=== PATIENT | female | born 1975 | race Caucasian/White ===

== ENCOUNTER 2023-06-21 20:50 | Outpatient (REF) | payer BC, SELFPAY ==
[2023-06-27 17:07] LABS: Age Gdln ACOG Testing Note (.); HPV Aptima Negative (Negative); IGP, Aptima HPV, rfx 16/18,45 Note (.)
== END 2023-06-21 20:51 | disposition home or self-care (01) ==
LOC: LAB 20:50
PROVIDERS: PCP Internal Medicine; Visit Provider Physician Assistant
DX: Z01.419 Encounter for gynecological examination (general) (routine) without abnormal findings (principal)
CPT/HCPCS: 87624; G0145

== ENCOUNTER 2023-08-16 13:44 | Outpatient (OUT) | payer BC, SELFPAY ==
--- OUTSIDE RECORDS SUMMARY | 2023-08-16 13:51 | XMS_ITS | CCD ---
Author Name Unknown Address [address] [place] [address] Organization [facility] Care Team Providers Care Ladle Handler Name Role Phone NO FAMILY PHYSICIAN Primary Care Unavailable Laconis ([facility]), Lainey Solitario Admitting Unavai lable [facility] ([facility]), Lainey Solitario Attending Unavai lable NILL, DR ALFONSO Admitting Unavailable NILL, DR ALFONSO Attending Unavailable NILL, DR ALFONSO Consulting Unavailable LINDSAY, DR URIBE Primary Care Unavailable KAREN, FRANCOIS Consulting Unavailable GEMBUS, JAHAIRA Consulting Unavailable LINDSAY, DR URIBE Consulting Unavailable LINDSAY, DR URIBE Primary Care Unavailable LINDSAY, DR URIBE Admitting Unavailable LINDSAY, DR URIBE Attending Unavailable LINDSAY, DR URIBE Primary Care Unavailable HILL, DR ADAN Admitting Unavailable WEST, DR KENDALL Branch Consulting Unavailable HILL, DR AADN Attending Unavailable HILL, DR ADAN Consulting Unavailable NILL, DR ALFONSO Admitting Unavailable LINDSAY, DR URIBE Primary Care Unavailable NILL, DR ALFONSO Attending Unavailable NILL, DR ALFONSO Consulting Unavailable NILL, Naty Solitario Attending Unavailable NILL, Naty Solitario Attending Unavailable IRVIN, SARITHA Attending Unavailable HILL, LOCO Delong Referring Unavailable DIDION, LAURA Delong Attending Unavailable DIDION, LAURA Delong Referring Unavailable Allergies Allergy Classification Reported Allergen(s) Allergy Type Date of Onset Reaction(s) Facility (1 source) No Known Medication Allergies; Translations: [No Known Medication Allergies] Propensity to adverse reactions (disorder) [facility] Repository Problems Active Problems Problem Classification Problem Date Documented Date Episodic/Chronic Asthma (1 source) Unspecified asthma, uncomplicated; Translations: [UNSPECIFIED ASTHMA UNCOMPLICATED] Onset: 08-01-2022 Chronic Esophageal disorders (1 source) Gastro-esophageal reflux disease without esophagitis; Translations: [GERD WITHOUT ESOPHAGITIS] Onset: 08-01-2022 Chronic Immunizations and screening for infectious disease (1 source) Encounter for screening for human papillomavirus (HPV); Translations: [ENC SCREENING HUMAN PAPILLOMAVIRUS] Onset: 06-17-2022 Episodic Other screening for suspected conditions (not mental disorders or infectious disease) (12 sources) Encounter for screening for malignant neoplasm of colon; Translations: [Encounter for screening for malignant neoplasm of cervix] Onset: 11-12-2021 Episodic Residual codes; unclassified (1 source) Acquired absence of both cervix and uterus; Translations: [ACQUIRED ABSENCE BOTH CERVIX AND UTERUS] Onset: 08-01-2022 Episodic Screening and history of mental health and substance abuse codes (1 source) Personal history of nicotine dependence; Translations: [PERSONAL HISTORY OF NICOTINE DEPEND] Onset: 08-01-2022 Episodic Unclassified (1 source) R05 - Cough; Translations: [R05 - Cough] Onset: 12-03-2018 Unclassified (1 source) CONTACT W/AND (SUSP) EXPOS COVID-19; Translations: [CONTACT W/AND (SUSP) EXPOS COVID-19] Onset: 07-28-2022 Past or Other Problems Problem Classification Problem Date Documented Da te Episodic/Chronic Residual codes; unclassified (1 source) Family history of malignant neoplasm of breast; Translations: [FAMILY HX MALIG NEOPLASM OF BREAST] Onset: 11-16-2021 Episodic Residual codes; unclassified (1 source) Family history of malignant neoplasm of other organs or systems; Translations: [FAM HX MALIG NEOPLASM OTH ORGN/SYS] Onset: 11-16-2021 Episodic Results Test Name Value Interpretation Reference Range Facility XR CHEST 2 VIEWSon 3 XR CHEST 2 VIEWS CLINICAL HISTORY: xr COMPARISON: FINDINGS: The cardiomediastinal silhouette is unremarkable. The lungs are free of infiltrates effusions or consolidations. The bones and soft tissues are within normal limits. IMPRESSION: There are no acute cardiopulmonary changes. ELECTRONICALLY SIGNED BY: Marcus Brunner MD Normal Not Available Outside Colonoscopyon 2021 Outside Colonoscopy [id number] D:127 Normal [facility] Reminderson 07-28-2022 Reminders - From: Carlie Mack LPN To: N - Clinical; Sent: 07/28/2022 11:15:46 EST Show up: 06/27/2032 07:00:00 EST Subject: colonoscopy recall Due Date/Time: 07/27/2032 07:00:00 EST Reminder/Recall Patient is due for screening colonoscopy 07/27/2032. Normal [facility] Lab Reportson 07-25-2022 Lab Reports [id number] D:127 Normal [facility] Covid-19 PCR ([facility])on 07-14 SARS-CoV-2 (COVID-19) RNA NICHELLE+probe Ql (Unsp spec) Not detected Normal NOT DETECTED [facility] Comment on above: Result Comment: When diagnostic testing is negative, the possibility of a false negative should be considered in the context of a patient's recent exposures and the presence of clinical signs and symptoms consistent with SARS-CoV-2. This test is not yet approved or cleared by the [place] FDA. When there are no FDA-approved or cleared tests available, and other criteria are met, FDA can make tests available under an emergency access mechanism called an Emergency Use Authorization (EUA). The EUA for this test is supported by the Magazine Keeper of Health and Human Service's declaration that circumstances exist to justify the emergency use of in vitro diagnostics for the detection and/or diagnosis of the virus that causes COVID-19. This EUA will remain in effect for the duration of the COVID-19 declaration justifying emergency of IVDs, unless it is terminated or revoked by the FDA (after which the test may no longer be used). Performed By: #### C VDTB #### [facility] [address] [place] [address] Dr. Charisse Esposito Consent for Procedure/Surger yon 07-14-2022 Consent for Procedure/Surgery [id number] D:127 Normal [facility] Facesheeton 07-14-2022 Facesheet [id number] D:127 Normal [facility] Pre-Certification Formon Pre-Certification Form [id number] CD:127 Normal [facility] Physician Referralon 022 Physician Referral [id number] D:127 Normal [facility] PAP ACOG PANEL 2: 30 to 65on 06-23-2022 . . Normal [facility] Comment on above: Result Comment: Perf ormed at: WB Performed By: #### [id number] #### [facility] [address] [address] [address] Charisse Esposito Age Gdln ACOG Testing - [facility] Comment on above: Performed By: #### [id number] #### [facility] [address] [address] [address] Charisse Esposito DIAGNOSIS: Comment [facility] Comment on above: Result Comment: NEGA TIVE FOR INTRAEPITHELIAL LESION OR MALIGNANCY. Performed at: WB Performed By: #### [id number] #### [facility] [address] [address] [address] Charisse Esposito HPV Aptima Negative Normal Negative [facility] Comment on above: Result Comment: This nucleic acid amplification test detects fourteen high-risk HPV types (16,18,31,33,35,39,45,51,52,56,58,59,66,68) without differentiation. Performed at: =G Performed By: #### 4 [id number] #### [facility] [address] [address] [address] Charisse Esposito HPV Genotype Reflex Comment Normal [facility] Comment on above: Result Comment: Crit eria not met, HPV Genotype not performed. Performed at: WB Performed By: #### 4 [id number] #### [facility] [address] [address] [address] Charisse Esposito Methodology: Comment Normal [facility] Comment on above: Result Comment: This liquid based ThinPrep(R) pap test was screened with the use of an image guided system. Performed at: WB Performed By: #### 4 [id number] #### [facility] [address] [place] [address] Dr. Charisse Esposito Note: Comment Normal [facility] Comment on above: Result Comment: The Pap smear is a screening test designed to aid in the detection of premalignant and malignant conditions of the uterine cervix. It is not a diagnostic procedure and should not be used as the sole means of detecting cervical cancer. Both false-positive and false-negative reports do occur. . Performed at: WB Performed By: #### 4 [id number] #### [facility] [address] [address] [address] Charisse Esposito Performed by: Comment Normal [facility] Comment on above: Result Comment: Rosita Chaudhari, Lead Software Architect (ASCP) Performed at: WB Performed By: #### 4 [id number] #### [facility] [address] [place] [address] Dr. Charisse Esposito Specimen adequacy: Comment Normal [facility] Comment on above: Result Comment: Sati sfactory for evaluation. No endocervical component is identified. Performed at: WB Performed By: #### 4 [id number] #### [facility] [address] [place] [address] Dr. Charisse Esposito Physician Referralon 022 Physician Referral [id number] D:127 Normal [facility] MG MAMM SCREEN 3D JOE CADon 11-12-2021 MG MAMM SCREEN 3D JOE CAD Patient: HENRIETTA RIVERA Exam Date: 11/12/2021 : 1975 Gender:F Ordering : DR LOCO GREEN Admission #: [id number] Family : Order #: [id number] CLICK HERE TO VIEW EXAM RADIOLOGY REPORT PROCEDURE: MAMMOGRAM SCREENING 3D BILATERAL CAD COMPARISON: MG MAMM SCREEN JOE W CAD, 12/11/2018. MG MAMM SCREEN JOE W CAD, 10/08/2020. INDICATIONS: Screening mammography Calculator Name NCI Breast Cancer Risk Assessment Tool 5 Year Breast Cancer Risk 1.50% Lifetime Breast Cancer Risk 15.10% Personal Breast Cancer No Personal Ovarian Cancer No Treatments None Family Cancers Sister with breast cancer at age 50; Aunt-maternal with breast cancer at age 52; Grandmother-maternal with brain cancer at age 60. LOCATION: [facility] BREAST COMPOSITION: Heterogeneously dense,which may obscure small masses. FINDINGS: DIAGNOSTIC CATEGORY 1--NEGATIVE. NO CHANGE FROM COMPARISON ASSESSMENT. Scattered benign-appearing calcifications are present. Scattered benign-appearing lymph nodes are present. RIGHT BREAST: No significant suspicious finding. LEFT BREAST: No significant suspicious finding. RECOMMENDATIONS: ROUTINE MAMMOGRAM AND CLINICAL EVALUATION IN 12 MONTHS. PLEASE NOTE: A NORMAL MAMMOGRAM DOES NOT EXCLUDE THE POSSIBILITY OF BREAST CANCER. A CLINICALLY SUSPICIOUS PALPABLE LUMP SHOULD BE BIOPSIED. Dictated by: Kendall Charles MD on 11/12/2021 at 11:29 Approved by: Kendall Charles MD on 11/12/2021 at 11:59 Normal [facility] XR chest 2V*on 12-03-2018 XR chest 2V* [facility] [place] [address] [place] [address] XRay Report Signed Patient: Henrietta Yan MR#: [id number] : 1975 Acct:[id number] Age/Sex: 43 / F ADM Date: 12/03/18 Loc: ICXD Room: Type: [facility] Attending Dr: Lainey HUERTA) KEMAR Ordering Provider: Lainey Marquez ([facility]) Date of Service: 12/03/18 XR/XR chest 2V*: cough;Cough Copies to: Lainey Marquez ([facility]) XR chest 2V* 12/03/2018 11:36 AM SIGNS AND SYMPTOMS: cough;Cough PROTOCOL: Frontal and lateral radiographs of the chest COMPARISON: None FINDINGS: The trachea is midline. The heart and mediastinal structures are within normal limits. The lung parenchyma is clear. The bony thorax is intact. XR/XR chest 2V* IMPRESSION: No acute cardiopulmonary pathology. Impression dictated by: Theo Saini M.D.12/03/2018 11:54 AM Dictation Location: [place] [address] Transcribed By: LATRICIA 12/03/18 1154 Dictated By: Theo Saini II, MD 12/03/18 1154 Signed By: 12/03/18 1154 Normal [facility] Encounters Encounter Date Encounter Type Care Provider Facility Start: 08-10-2023 End: 08-10-2023 ambulatory SARITHA BRYAN Not Available Start: 07-17-2023 End: 07-18-2023 ambulatory LAURA HWANG Not Available Start: 07-28-2022 Encounter for preprocedural laboratory examination DR NATY ROBERT [facility] Start: 07-27-2022 End: 07-28-[address] NATY ROBERT Facility:[facility] Start: 07-23-2022 End: 07-24-[address] NATY ROBERT Facility:[facility] Start: 07-23-2022 End: 07-24-2022 Encounter for preprocedural laboratory examination DR NATY ROBERT Facility:[facility] Start: 07-12-2022 End: 07-13-2022 ambulatory Naty ROBERT Facility:[facility] Start: 06-15-2022 End: 06-15-[address] RONY ALTAMIRANO Facility:[facility] Start: 06-15-2022 ambulatory Naty ROBERT Facility:[facility] Start: 11-12-2021 End: 11-13-[address] RONY ALTAMIRANO Facility:[facility] Start: 12-03-2018 End: 12-03-2018 Patient encounter procedure NO FAMILY PHYSICIAN Facility:[facility] Payers Date Payer Category Payer Self-pay 1975 Unknown [id number] 2.16.84 [id number] 1975 Unknown [id number] .16.84 [id number] 1975 Unknown [id number] .16.84 [id number] 1975 Unknown [id number] 2.16.84 [id number] 1975 Unknown [id number] 2.16.8 [id number] 1975 Unknown [id number] 2.16.8 [id number] 1975 Unknown [id number] 2.16.840 .[id number] 1975 Unknown [id number] 2.16.840 .[id number] 1975 Unknown [id number] 2.16.840 .[id number] 1961 Unknown [id number] Unknown [id number] 2.16.84 [id number] Clinical Note 07-27-2022 Note Date & Type Note Facility 07-27-2022 Note OPERATIVE NOTE OPERATION DATE: 07/27/2022 PREOPERATIVE DIAGNOSIS: Colorectal screening. POSTOPERATIVE DIAGNOSIS: Normal colonoscopy to cecum. PROCEDURE: Colonoscopy to cecum. SURGEON: Naty Robert M.D. ANESTHESIA: Monitored anesthesia care. ESTIMATED BLOOD LOSS: Zero. INDICATIONS AND CONSENT: Patient is a 47-year-old female, presents for colorectal screening. Indications, risks, benefits, alternatives of proceeding with colonoscopy were explained extensively to the patient, including the risks of bleeding, colon perforation or anesthetic complications. All of her questions were answered. Informed consent was obtained. PROCEDURE: Patient brought to the operating room, placed in the left lateral decubitus position. Monitored anesthesia care was provided. Rectal exam was performed which showed no masses or blood. The scope was inserted into the anal canal. Under direct visualization was advanced. With the aid of abdominal compression, it was advanced to the cecum where cecal markings were clearly identified. There was noted to be a good prep. Upon withdrawal of the scope, mucosal surfaces were carefully examined. There were no mass lesions or polyps. No inflammatory changes or ulcerations. No significant diverticulosis. The scope was retroflexed in the anal canal. There was no significant hemorrhoidal disease. Scope was then withdrawn. Patient tolerated procedure well, was sent to recovery room in good condition. CC: Family physician [facility] Clinical Note 07-13-2022 Note Date & Type Note Facility 07-13-2022 Note Chief Complaint consultation for screening colonoscopy HPI Staff 47 year old female presents on consultation from Dr. Altamirano for screening colonoscopy. Denies abdominal or rectal pain. No rectal bleeding or change in bowel habits. Denies nausea or vomiting. No unexplained weight loss. Never had colonoscopy in the past. No known family history of colon cancer. History of Present Illness 47 yo female with h/o asthma, referred for colorectal screening; denies change in bms or blood in stools; no abdominal complaints; denies asa or NSAID use, no SBE prophylaxis; abdominal operations significant for tubal ligation, TONNY with bso; no previous colonoscopy; denies asa or NSAID use; no SBE prophylaxis; no fmhx of GI malignancy or IBD. no tobacco use. Review of Systems PHQ Score Initial Depression Screen Score: 0 ROS - Provider Constitutional: no fever, no sweats, no weight loss. Eyes: no glasses, no blurred vision, no visual loss. ENMT: no dentures, no hoarseness, no swallowing difficulties, no hearing loss, no ear infection(s), no nose bleeds. Cardiovascular: normal blood pressure, no chest pain, regular heartbeat, no heart murmur. Respiratory: no shortness of breath, no cough, no asthma, no wheezing. Gastrointestinal: no nausea, no vomiting, no diarrhea, no constipation, no blood in stool, no change in bowel habits, no abdominal pain, no hepatitis. Genitourinary: no kidney stones, no urine infection, no dysuria. Musculoskeletal: no pain, no weakness. Skin: no changing moles, no rash, no skin lumps. Neurologic: no seizures, no epilepsy, no headache. Psychiatric: no emotional or psychiatric problem. Heme/Lymph: no bleeding problems, no anemia, no blood clots, no transfusions. Allergy/Immunologic: no swollen lymph nodes/glands, no IV drug abuse. Other: Additional ROS info: Except as noted in the above Review of Systems and in the History of Present Illness, all other systems have been reviewed and are negative or noncontributory. Physical Exam Vitals & Measurements HR: 76(Peripheral) RR: 16 BP: 126/82 HT: 64 in HT: 162 cm WT: 72 kg WT: 158.4 lb BMI: 27.43 HEENT: normal conjunctiva, sclera clear, no scleral icterus, EOM intact, PERRLA, oral mucosa moist without lesions. Neck: trachea midline, no mass, symmetric, no thyromegaly or nodules, no adenopathy Respiratory: lungs CTA, respirations non labored. Cardiovascular: regular rate and rhythm, no murmur, no pedal edema or varicosities. Gastrointestinal: soft, non distended, no tenderness, no masses, no palpable hernias, diastasis recti no, no hepatosplenomegaly; normal bs Lymphatic: no cervical adenopathy, Musculoskeletal: normal gait, digits and nails without infection, nodes, cyanosis, clubbing. Skin: no rashes, no lesions, no ulcers, no subcutaneous nodules, induration. Psychiatric/Neuro: oriented to time, place, person, judgement normal, affect appropriate for age, insight intact, no focal deficits. Tests review of old records completed, Discussed surgical options, risks, and possible complications with patient. Assessment/Plan 1. Screening for malignant neoplasm of colon (Z12.11: Encounter for screening for malignant neoplasm of colon) plan colonoscopy under anesthesia, informed consent obtained. Follow-up No qualifying data available Problem List/Past Medical History Ongoing Asthma BMI 27.0-27.9,adult Chronic constipation Depression Fibrocystic breast changes GERD (gastroesophageal reflux disease) Mixed incontinence Psoriasis Screening for malignant neoplasm of colon Seasonal allergic rhinitis Historical No qualifying data Procedure/Surgical History Abdominal hysterectomy, Bilateral complete salpingectomy, Endometrial ablation, Excision of cervical lymph node, Tubal ligation. Medications Fish Oil fluticasone-salmeterol 250 mcg-50 mcg Inh Pwdr, 1 puff, Inhalation, BID Allergies No Known Allergies No Known Medication Allergies Social History Alcohol - Denies Alcohol Use, 07/12/2022 Substance Abuse - Denies Substance Abuse, 07/12/2022 Tobacco Former smoker, quit more than 30 days ago Tobacco Use:. Never Smokeless Tobacco Use:. Cigarettes, 0.25 per day. Started age 15.0 Years. Stopped age 18 Years., 07/12/2022 Family History Diabetes mellitus type 2: Mother and Father. Heart failure: Brother. Hypertension: Father. Primary malignant neoplasm of female breast: Sister. Stroke: Father. Immunizations Vaccine Date Status Comments influenza virus vaccine, inactivated - Not Given Patient Refuses [facility] Comment on above: Result Comment: Elec tronically Signed By: TARA GOVEA, Naty Garcia\Date and Time Signed: 07/13/22 13:08 EST Summary Purpose Family History No Family History Records FoundNo Family History Records FoundNo Family History Records FoundNo Family History Records Found Advance Directives No Advanced Directives Records FoundNo Advanced Directives Records FoundNo Advanced Directives Records FoundNo Advanced Directives Records Found Additional Source Comments INFORMATION SOURCE (unrecogn ized section and content) DATE CREATED AUTHOR 12/04/2018 [facility] DATE CREATED AUTHOR AUTHOR'S ORGANIZ ATION 08/05/2022 [facility] DATE CREATED AUTHOR AUTHOR'S ORGANIZ ATION 08/12/2022 [facility] DATE CREATED AUTHOR AUTHOR'S ORGANIZ ATION 08/12/2023 [facility] EPIC FOR RECORDS PERTAINING TO PATIENTS WHO ARE OR HAVE BEEN ENROLLED IN A CHEMICAL DEPENDENCY/SUBSTANCEABUSE PROGRAM, SOME INFORMATION MAY BE OMITTED. This clinical summary was aggregated from multiple sources. Caution should be exercised in using it in the provision of clinical care. This summary normalizes information from multiple sources, and as a consequence, information in this document may materially change the coding, format and clinical context of patient data. In addition, data may be omitted in some cases. CLINICAL DECISIONS SHOULD BE BASED ON THE PRIMARY CLINICAL RECORDS. [facility]. provides no warranty or guarantee of the accuracy or completeness of information in this document.
--- NOTE | 2023-08-16 14:02 | US_ITS ---
Patient Name: PATRICK RIVERA MR#: [id number] : 1975 Exam Date: 08/16/2023 Ordering Doctor: DR Abbe Altamirano . RADIOLOGY REPORT PROCEDURE: US BREAST RT COMPLETE COMPARISON: None. INDICATIONS: Right Breast Pain N64.4 TECHNIQUE: Breast ultrasound was performed, with evaluation focusing only on specific areas of concern. FINDINGS: Right breast ultrasound demonstrates at the 3 o'clock position a 3 mm area of anechoic echogenicity consistent with a simple cyst. Dilated duct is observed. No additional focal abnormality is observed to correspond to patient's pain. Further evaluation should be based on clinical and physical exam. RECOMMENDATIONS: No focal ultrasound abnormality to correspond to the patient's pain PLEASE NOTE: A NORMAL ULTRASOUND EXAMINATION DOES NOT EXCLUDE THE POSSIBILITY OF BREAST CANCER. A CLINICALLY SUSPICIOUS PALPABLE LUMP SHOULD BE BIOPSIED. Dictated by: James Charles MD on 08/16/2023 at 14:55 Approved by: James Charles MD on 08/16/2023 at 14:57
== END 2023-08-16 13:45 | disposition home or self-care (01) ==
LOC: US 13:44
PROVIDERS: PCP Internal Medicine; Visit Provider Obstetrics & Gynecology
DX: N64.4 Mastodynia (principal)
CPT/HCPCS: 76641

== ENCOUNTER 2023-12-01 12:52 | Outpatient (OUT) | payer BC, SELFPAY ==
--- NOTE | 2023-12-01 12:57 | MM_ITS ---
Patient Name: PATRICK RIVERA MR#: [id number] : 1975 Exam Date: 12/01/2023 Ordering Doctor: DR Abbe Altamirano . RADIOLOGY REPORT PROCEDURE: MM TOMOSYNTHESIS SCREENING BI COMPARISON: MG MAMM SCREEN 3D JOE CAD, 12/29/2022. MG MAMM SCREEN 3D JOE CAD, 11/12/2021. MG MAMM SCREEN JOE W CAD, 10/08/2020. MG MAMM SCREEN JOE W CAD, 12/11/2018. INDICATIONS: Screening Calculator Name NCI Breast Cancer Risk Assessment Tool 5 Year Breast Cancer Risk 1.60% Lifetime Breast Cancer Risk 14.70% Personal Breast Cancer No Personal Ovarian Cancer No Treatments None Family Cancers Sister with breast cancer at age 50; Aunt-maternal with breast cancer at age 52; Grandmother-maternal with brain cancer at age 60. LOCATION: [facility] BREAST COMPOSITION: The breasts are heterogeneously dense,which may obscure small masses. FINDINGS: DIAGNOSTIC CATEGORY 1--NEGATIVE. RIGHT BREAST: No significant suspicious finding. No significant change has occurred. LEFT BREAST: No significant suspicious finding. No significant change has occurred. RECOMMENDATIONS: ROUTINE MAMMOGRAM AND CLINICAL EVALUATION IN 12 MONTHS. PLEASE NOTE: A NORMAL MAMMOGRAM DOES NOT EXCLUDE THE POSSIBILITY OF BREAST CANCER. A CLINICALLY SUSPICIOUS PALPABLE LUMP SHOULD BE BIOPSIED. Dictated by: Raad Munguia M.D. on 12/01/2023 at 15:25 Approved by: Raad Munguia M.D. on 12/01/2023 at 15:27
--- OUTSIDE RECORDS SUMMARY | 2023-12-01 13:00 | XMS_ITS | CCD ---
Author Organization [facility] Care Team Providers Care Contracts Manager Name Role Phone NO FAMILY PHYSICIAN Primary [...] DR KENDALL Branch Consulting Unavailable HILL, DR ADAN Attending Unavailable HILL, DR ADAN Consulting Unavailable NILL, DR ALFONSO Admitting Unavailable LINDSAY, DR URIBE Primary Care Unavailable NILL, DR ALFONSO Attending Unavailable NILL, DR ALFONSO Consulting Unavailable NILL, Naty Solitario Attending Unavailable NILL, Naty Solitario Attending Unavailable Unavailable Primary Care Provider Unavailabl e PROVIDER, UNKNOWN Attending Unavailable PROVIDER, UNKNOWN Admitting Unavailable SARITHA BRYAN Attending Unavailable LINDSAYRONY Kunz Attending Unavailable MEGAN PHILLIPS Attending Unavail able LOCO GREEN Referring Unavailable TEAGAN, AMARILYS Attending Unavailable PETER, LOCO Delong Referring Unavailable TEAGAN, AMARILYS Attending Unavailable LOCO GREEN Referring Unavailable ESPINOZA COLEMAN Attending Unavailable LOCO GREEN Referring Unavailable LOCO GREEN Referring Unavailable DIDIONLAURA Attending Unavailable DIDLAURA STOREY Referring Unavailable TEAGAN, AMARILYS Attending Unavailable PETER, LOCO Delong Referring Unavailable TEAGAN, AMARILYS Attending Unavailable LOCO GREEN Referring Unavailable DEPMICHAEL FOSTER Attending Unavailable HILL, LOCO Delong Referring Unavailable TEAGAN, AMARILYS Attending Unavailable HUBBARDSTONLOCO Referring Unavailable HILL, LOCO Delong Attending Unavailable HILL, LOCO Delong Referring Unavailable TEAGAN, AMARILYS Attending Unavailable HUBBARDSTON, LOCO Delong Referring Unavailable Allergies Allergy Classification Reported Allergen(s) Allergy Type Date of Onset Reaction(s) Facility (1 source) No Known Medication Allergies; Translations: [No Known Medication Allergies] Propensity to adverse reactions (disorder) [facility] Repository Problems Active Problems Problem Classification Problem [...] BOTH CERVIX AND UTERUS] Onset: 08-01-2022 Episodic Residual codes; unclassified (1 source) Did not attend; Translations: [No-show for appointment] 09-13-2023 Episodic Screening and history of mental health and substance abuse codes (1 source) Personal history of nicotine dependence; Translations: [PERSONAL HISTORY OF NICOTINE DEPEND] Onset: 08-01-2022 Episodic Unclassified (1 source) R05 - Cough; Translations: [R05 - Cough] Onset: 12-03-2018 Unclassified (1 source) CONTACT W/AND (SUSP) EXPOS COVID-19; Translations: [CONTACT W/AND (SUSP) EXPOS COVID-19] Onset: 07-28-2022 Unclassified (1 source) Patient's noncompliance with other medical treatment and regimen due to unspecified reason; Translations: [Patient's noncompliance with other medical treatment and regimen due to unspecified reason] Onset: 09-13-2023 Past or Other Problems Problem Classification Problem [...] Test Name Value Interpretation Reference Range Facility Progress Noteson 09-13-2023 Barrel Ribs Solderer Authentication Interface Message Text Pt left the waiting room at her scheduled appointment time. She had been inthe waiting room about 4 minutes. She called the office [place]. Slava Helms, BACK CLOSER-SKIP LOCATOR Normal [facility] XR CHEST 2 VIEWSon 3 XR CHEST 2 VIEWS CLINICAL HISTORY: xr COMPARISON: FINDINGS: The cardiomediastinal silhouette is unremarkable. The lungs are free of infiltrates effusions or consolidations. The bones and soft tissues are within normal limits. IMPRESSION: There are no acute cardiopulmonary changes. ELECTRONICALLY SIGNED BY: Marcus Brunner MD Normal Not Available Outside Colonoscopyon 2021 Outside Colonoscopy [id number] 0CD:127 Normal [facility] Reminderson 07-28-2022 Reminders - From: Carlie Mack LPN To: N - Clinical; Sent: 07/28/2022 11:15:46 EST Show up: 06/27/2032 07:00:00 EST Subject: colonoscopy recall Due Date/Time: 07/27/2032 07:00:00 EST Reminder/Recall Patient is due for screening colonoscopy 07/27/2032. Normal [facility] Lab Reportson 07-25-2022 Lab Reports [id number] 0CD:127 Normal [facility]14 SARS-CoV-2 (COVID-19) RNA NICHELLE+probe Ql (Unsp spec) Not detected Normal NOT DETECTED [facility] Comment on above: Result Comment: When diagnostic [...] for this test is supported by the [employer] of Health and Human Service's declaration that [...] used). Performed By: #### C VDTB #### [facility] [address] [place] [address] Dr. Charisse Esposito Consent for Procedure/Surger yon 07-14-2022 Consent for Procedure/Surgery [id number] 0CD:127 Normal [facility] Facesheeton 07-14-2022 Facesheet [id number] 0CD:127 Normal [facility] Pre-Certification Formon Pre-Certification Form [id number]. 00CD:127 Normal [facility] Physician Referralon 022 Physician Referral [id number] 0CD:127 Normal [facility] PAP ACOG PANEL 2: 30 to 65on 06-23-2022 . . Normal [facility] Comment on above: Result Comment: Perf ormed at: WB Performed By: #### [id number] #### [facility] [address] [place] [address] Dr. Charisse Esposito Age Gdln ACOG Testing 30-65 Normal [facility] Comment on above: Performed By: #### [id number] #### [facility] [address] [place] [address] Dr. Charisse Esposito DIAGNOSIS: Comment Normal [facility] Comment on above: Result Comment: NEGA TIVE FOR INTRAEPITHELIAL LESION OR MALIGNANCY. Performed at: WB Performed By: #### 4 [id number] #### [facility] [address] [place] [address] Dr. Charisse Esposito HPV Aptima Negative Normal Negative [facility] Comment on above: Result Comment: This nucleic acid amplification test detects fourteen high-risk HPV types (16,18,31,33,35,39,45,51,52,56,58,59,66,68) without differentiation. Performed at: =G Performed By: #### 4 [id number] #### [facility] [address] [place] [address] Dr. Charisse Esposito HPV Genotype Reflex Comment Normal [facility] Comment on above: Result Comment: Crit eria not met, HPV Genotype not performed. Performed at: WB Performed By: #### 4 [id number] #### [facility] [address] [place] [address] Dr. Charisse Esposito Methodology: Comment [facility] Comment on above: Result Comment: This liquid based ThinPrep(R) pap test was screened with the use of an image guided system. Performed at: WB Performed By: #### 4 [id number] #### [facility] [address] [place] [address] Dr. Charisse Esposito Note: Comment Normal [facility] Comment on above: Result Comment: The Pap smear is a screening test designed to aid in the detection of premalignant and malignant conditions of the uterine cervix. It is not a diagnostic procedure and should not be used as the sole means of detecting cervical cancer. Both false-positive and false-negative reports do occur. . Performed at: WB Performed By: #### 4 [id number] #### [facility] [address] [place] [address] Dr. Charisse Esposito Performed by: Comment Normal [facility] [place] Comment on above: Result Comment: Rosita Chaudhari, Picu Nurse (ASCP) Performed at: WB Performed By: #### 4 [id number] #### [facility] [address] [place], [place] [address] Dr. Charisse Esposito Specimen adequacy: Comment Normal [facility] Comment on above: Result Comment: Sati sfactory for evaluation. No endocervical component is identified. Performed at: WB Performed By: #### 4 [id number] #### [facility] [address] [place], [place] [address] Dr. Charisse Esposito Physician Referralon 022 Physician Referral [id number] 0CD:127 Normal [facility] MG MAMM SCREEN 3D JOE CADon 11-12-2021 MG MAMM SCREEN 3D JOE CAD Patient: HENRIETTA RIVERA Exam Date: 11/12/2021 : 1975 Gender:F Ordering : DR LOCO GREEN Admission #: [id number] Family : Order #: [id number] CLICK HERE TO VIEW EXAM RADIOLOGY REPORT [...] brain cancer at age 58. LOCATION: [facility] BREAST COMPOSITION: Heterogeneously dense,which may obscure small [...] Charles MD on 11/12/2021 at 11:59 Normal [facility] XR chest 2V*on 12-03-2018 XR chest 2V* [facility] [place] [address] [place] [address] XRay Report Signed Patient: Henrietta Yan MR#: [id number] : 1975 Acct:[id number] Age/Sex: 43 / F ADM Date: 12/03/18 Loc: ICXD Room: Type: [facility] Attending Dr: Lainey HUERTA) [facility] JUDGE-C Ordering Provider: Lainey Marquez ([facility]) Date of [...] Theo Saini M.D.12/03/2018 11:54 AM Dictation Location: [place] [address] Transcribed By: [facility] 12/03/18 1154 Dictated By: Theo Saini II, MD 12/03/18 1154 Signed By: 12/03/18 1154 [facility] Encounters Encounter Date Encounter Type Care Provider Facility Start: 11-02-2023 End: 11-02-2023 ambulatory AMARILYS TEAGAN Not Available Start: 10-31-2023 End: 11-01-2023 ambulatory LOCO GREEN Not Available Start: 10-31-2023 End: 10-31-2023 ambulatory AMARILYS TEAGAN Not Available Start: 10-24-2023 End: 10-24-2023 ambulatory MICHAEL PAZ Not Available Start: 10-19-2023 End: 10-19-2023 ambulatory AMARILYS TEAGAN Not Available Start: 10-17-2023 End: 10-17-2023 ambulatory AMARILYS TEAGAN Not Available Start: 10-12-2023 End: 10-12-2023 ambulatory ESPINOZA VIR[place] Not Available Start: 10-10-2023 End: 10-10-2023 ambulatory AMARILYS TEAGAN Not Available Start: 10-06-2023 End: 10-06-2023 ambulatory AMARILYS TEAGAN Not Available Start: 10-03-2023 End: 10-03-2023 ambulatory MEGAN Delong [facility] Not Available Start: 09-19-2023 End: 09-19-2023 ambulatory RONY ALTAMIRANO Not Available Start: 09-17-2023 Letter encounter [facility] Start: 09-13-2023 ambulatory UNKNOWN PROVIDER Facili ty:[facility] Start: 09-13-2023 End: 09-13-2023 Patient encounter procedure Slava Helms BACK CLOSER-SKIP LOCATOR Work Phone: [facility] Comment on above: No-show for appointm ent (Primary Dx) Start: 08-10-2023 End: 08-10-2023 ambulatory SARITHA BRYAN Not Available Start: 07-17-2023 End: 07-18-2023 ambulatory LAURA HWANG Not Available Start: 07-28-2022 Encounter for preprocedural laboratory examination DR NATY ROBERT [facility] Start: 07-27-2022 End: 07-28-[address] NATY ROBERT Facility:[facility] Start: 07-23-2022 End: 07-24-[address] NATY ROBERT Facility:[facility] Start: 07-23-2022 End: 07-24-2022 Encounter for preprocedural laboratory examination DR NATY ROBERT Facility:[facility] Start: 07-12-2022 End: 07-13-2022 ambulatory Naty ROBERT Facility:[facility] Start: 06-15-2022 End: 06-15-[address] RONY ALTAMIRANO Facility:[facility] Start: 06-15-2022 ambulatory Naty ROBERT Facility:[facility] Start: 11-12-2021 End: 11-13-[address] RONY ALTAMIRANO Facility:[facility] Start: 12-03-2018 End: 12-03-2018 Patient encounter procedure NO FAMILY PHYSICIAN Facility:[facility] Plan of Treatment Date Care Activity Detail Author Start: 10-21-2027 Cholesterol [Mass/vo lume] in Serum or Plasma Cholesterol [facility] Start: 12-30-2023 Screening for malign ant neoplasm of breast Mammography [facility] Start: 04-14-2023 COVID-19 Vaccine ( season) COVID-19 Vaccine ( season) [facility] Start: 04-14-2023 Influenza vaccination Influenza Vacc ine (#1) [facility] Start: 2023 Shingles (RZV) Vacci ne (1 of 2) Shingles (RZV) Vaccine (1 of 2) [facility] Start: 2018 Cholesterol [Mass/vo lume] in Serum or Plasma Cholesterol [facility] Start: 2018 Screening for malign ant [facility]oplasm [facility] Start: 1994 Screening for malign ant neoplasm of cervix Pap Smear [facility] Start: 1991 Hepatitis C screening Hepatitis C An tibody [facility] Start: 1991 Tetanus + diphtheria + acellular pertussis vaccine (product) Tdap Booster [facility] Start: 1988 HIV screening HIV Test [facility] Start: 1973 Hepatitis B vaccination Hepati tis B (HBV) Vaccine (1 of 3 - 3-dose series) [facility] Start: 1975 Screening for malign ant neoplasm of colon Colonoscopy [facility] Immunizations Immunization Date Immunization Notes Care Provider Fa abdirizak 05-21-2018 influenza, injectabl e, quadrivalent, contains preservative Slava Helms BACK CLOSER-SKIP LOCATOR Work Phone: [facility] 05-21-2018 influenza virus vacc ine, unspecified formulation Slava Helms BACK CLOSER-SKIP LOCATOR Work Phone: [facility] Payers Date Payer Category Payer Unknown [employer] - [employer] BLUE CROSS/HMO,PPO,POS [id number] 2023-Present [address] [place] [address] PPO [id number] 2018 Self-pay 1975 Unknown [id number] 2.16.840.1.574738.3.579.2.593 1975 Unknown [id number] 2.16.840.1.809167.3.579.2.593 1975 Unknown [id number] 2.16.840.1.542415.3.579.2.593 1975 Unknown [id number] 2.16.840.1.699572.3.579.2.593 1975 Unknown [id number] 2.16.840.1.608573.3.579.2.727 1975 Unknown [id number] 2.16.840.1.069730.3.579.2.727 1975 Unknown [id number] 2.16840.1.033847.3.579.2.732 1975 Unknown [id number] 2.16840.1.084098.3.579.2.125 1975 Unknown [id number] 2.16840.1.575862.3.579.2.125 1975 Unknown [id number] 2.16840.1.077090.3.579.2.125 1975 Unknown [id number] 2.16.840.1.343948.3.579.2.1259 1975 Unknown [id number] 2.16840.1.042133.3.579.2.125 1975 Unknown [id number] 2.16.840.1.273571.3.579.2.1259 1975 Unknown [id number] 2.16.840.1.728038.3.579.2.125 1975 Unknown [id number] 2.16.840.1.593651.3.579.2.1259 1973 Unknown [id number] 2.16.840.1.445385.3.579.2.125 1975 Unknown [id number] 2.16.840.1.030193.3.579.2.1259 1975 Unknown [id number] 2.16.840.1.841283.3.579.2.1259 1973 Unknown [id number] 2.16.840.1.451753.3.579.2.1259 1973 Unknown [id number] 2.16.840.1.150991.3.579.2.1259 1975 Unknown [id number] 2.16.840.1.689863.3.579.2.1259 1959 Unknown [id number] Unknown [id number] 2.16.840.1.081045.3.579.2.531 Social History Date Type Detail Facility Tobacco smoking status 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 She had been inthe waiting room about 4 minutes. She called the office to [place] and got very nervous. PRINCESS Maier documented in this encounter [facility] Clinical Note 07-27-2022 Note Date & Type [...] in good condition. CC: Family physician [facility] Clinical Note 07-13-2022 Note Date & Type [...] - Not Given Patient Refuses [facility] Comment on above: Result Comment: Elec tronically Signed By: TARA GOVEA, Naty Garcia\Date and Time Signed: 07/13/22 13:08 EST Evaluation note Note Date & Type Note Facility Evaluation note Diagnosis No-show for appointment- Primary documented in this encounter [facility] Summary Purpose Family History No Family History Records FoundNo Family History Records FoundNo Family History Records FoundNo Family History Records FoundNo Family History Records Found Advance Directives No Advanced Directives Records FoundNo Advanced Directives Records FoundNo Advanced Directives Records FoundNo Advanced Directives Records FoundNo Advanced Directives Records Found Additional Source Comments INFORMATION SOURCE (unrecogn ized section and content) DATE CREATED AUTHOR 12/04/2018 [facility] DATE CREATED AUTHOR AUTHOR'S ORGANIZ ATION 08/05/2022 [facility] DATE CREATED AUTHOR AUTHOR'S ORGANIZ ATION 08/12/2022 [facility] DATE CREATED AUTHOR AUTHOR'S ORGANIZ ATION 09/14/2023 [facility] DATE CREATED AUTHOR AUTHOR'S ORGANIZ ATION 11/05/2023 [facility] RECORDS PERTAINING TO PATIENTS WHO ARE [...] BE BASED ON THE PRIMARY CLINICAL RECORDS. [facility]. provides no warranty or guarantee of the accuracy or completeness of information in this document.
== END 2023-12-01 12:53 | disposition home or self-care (01) ==
LOC: MAMMO 12:52
PROVIDERS: PCP Internal Medicine; Visit Provider Obstetrics & Gynecology
DX: Z12.31 Encounter for screening mammogram for malignant neoplasm of breast (principal); Z80.3 Family history of malignant neoplasm of breast; Z80.8 Family history of malignant neoplasm of other organs or systems
CPT/HCPCS: 77063; 77067

== ENCOUNTER 2024-06-24 20:18 | Outpatient (REF) | payer BC, SELFPAY ==
--- OUTSIDE RECORDS SUMMARY | 2024-06-24 20:21 | XMS_ITS | CCD ---
Author Organization [facility] Inform ion [facility] Care Team Providers Care Hydraulic Elevator Constructor Name Role Phone TARA, DR ALFONSO Admitting Unavailable NILL, DR ALFONSO Attending Unavailable NILL, DR ALFONSO Consulting Unavailable EVELIA, DR URIBE Primary Care Unavailable KAREN, FRANCOIS Consulting Unavailable GEMBUS, JAHAIRA Consulting Unavailable EVELIA, DR URIBE Consulting Unavailable EVELIA, DR URIBE Primary Care Unavailable EVELIA, DR URIBE Admitting Unavailable EVELIA, DR URIBE Attending Unavailable EVELIA, DR URIBE Primary Care Unavailable HILL, DR ADAN Admitting Unavailable WEST, DR KENDALL Branch Consulting Unavailable HILL, DR ADAN Attending Unavailable HILL, DR ADAN Consulting Unavailable NILL, DR ALFONSO Admitting Unavailable EVELIA, DR URIBE Primary Care Unavailable NILL, DR ALFONSO Attending Unavailable NILL, DR ALFONSO Consulting Unavailable NILL, Naty Solitario Attending Unavailable NILL, Naty R Attending Unavailable Unavailable Primary Care Provider Unavailabl e PROVIDER, UNKNOWN Attending Unavailable PROVIDER, UNKNOWN Admitting Unavailable MD Manuel Willoughby Attending Provider MD Loco Green Primary Care Provider Manuel Willoughby Admitting Unavailable Manuel Willoughby Attending Unavailable Loco Green Primary Care Unavailable Manuel Willoughby Admitting Unavailable Manuel Willoughby Attending Unavailable Loco Green Primary Care Unavailable Loco Green MD Unavailable Loco Green MD Primary Care Provider [phone] KYRA BRYAN Attending Unavailable RONY ALTAMIRANO Attending Unavailable MEGAN PHILLIPS Attending Unavail able LOCO GREEN Referring Unavailable AMARILYS CANDELARIA Attending Unavailable LOCO GREEN Referring Unavailable TEAGAN, AMARILYS Attending Unavailable LOCO GREEN Referring Unavailable ESPINOZA COLEMAN Attending Unavailable LOCO GREEN Referring Unavailable TEAGAN, AMARILYS Attending Unavailable HILL, OLCO Delong Referring Unavailable TEAGAN, AMARILYS Attending Unavailable HILL, LOCO Delong Referring Unavailable MICHAEL PAZ Attending Unavailable HILL, LOCO Delong Referring Unavailable TEAGAN, AMARILYS Attending Unavailable HILL, LOCO Delong Referring Unavailable HILL, LOCO Delong Attending Unavailable HILL, LOCO Delong Referring Unavailable TEAGAN, AMARILYS Attending Unavailable HILL, LOCO Delong Referring Unavailable HILL, LOCO Delong Referring Unavailable DIDION, LAURA Delong Attending Unavailable DIDION, LAURA Delong Referring Unavailable RONY ALTAMIRANO Attending Unavailable Allergies Allergy Classification Reported Allergen(s) Allergy Type Date of Onset Reaction(s) Facility (1 source) No Known Medication Allergies; Translations: [No Known Medication Allergies] Propensity to adverse reactions (disorder) [facility] Repository (3 sources) montelukast Drug Allergy 3 [facility] Medications Current Medications Medication Drug Class(es) Dates Sig (Normalized) Sig (Original) acetaminophen 325 mg / HYDROcodone bitartrate 5 mg oral tablet (1 source) Opioid Agonist Start: 02-01-2024 take 2 tablets by mouth every six hours Hydrocodone-Acetamino phen Active 2 TAB PO Q6H 30 7 February 01, 2024 albuterol 0.83 mg/ml inhalation solution (3 sources) beta2-Adrenergic Agonist albuterol (2.5 MG/3ML) 0.083% nebulizer solution Take 2.5 mg by nebulization every 6 (six) hours if needed for wheezing Active estrogens, conjugated (longterm) 0.3 mg oral tablet (3 sources) Estrogen Start: 03-18-2024 End: 03-13-2025 take 1 tablet by mouth once daily estrogens, conjugated, (Premarin) 0.3 MG tablet Indications: Hormone imbalance Take 1 tablet (0.3 mg) by mouth Daily Take daily for 21 days then do not take for 7 days. 90 tablet 3 03/18/2024 03/13/2025 Active 60 actuat fluticasone propionate 0.25 mg/actuat / salmeterol 0.05 mg/actuat dry powder inhaler (3 sources) Corticosteroid, beta2-Adrenergic Agonist Start: 11-17-2023 Fluticasone-Salmetero l (Wixela Inhub) 250-50 MCG/ACT aerosol powder Indications: Mild intermittent asthma without complication (CMS/HCC) USE 1 INHALATION ORALLY TWICE DAILY 180 each 3 11/17/2023 Active gabapentin 300 mg oral capsule (1 source) Anti-epileptic Agent Start: 02-01-2024 take 300 mg by mouth three times daily Gabapentin Active 300 MG PO Three times daily 30 February 01, 2024 12:00am ibuprofen 800 mg oral tablet (3 sources) Nonsteroidal Anti-inflammatory Drug ibuprofen 800 MG tablet Take 400 mg by mouth 3 (three) times a day as needed for mild pain Active loratadine 10 mg oral tablet (3 sources) take 1 tablet by mouth every twenty-four hours as needed loratadine (Claritin) 10 MG tablet Take 10 mg by mouth Daily as needed for allergies Active omeprazole 20 mg delayed release oral capsule (8 sources) Proton Pump Inhibitor Start: 03-06-2024 take 1 capsule by mouth once daily omeprazole (PriLOSEC) [address] capsule Indications: Gastroesophageal reflux disease without esophagitis TAKE 1 CAPSULE BY MOUTH DAILY DO NOT CRUSH OR CHEW 90 capsule 2 03/06/2024 Active Start: 01-18-2024 take 20 mg by mouth once daily in the morning Omeprazole Active 20 MG PO Every morning January 18, 2024 12:00am take 1 capsule by mo uth every twenty-four hours as needed omeprazole (PriLOSEC) [address] capsule Take 40 mg by mouth Daily as needed Do not crush or chew. Active psyllium 3400 mg powder for oral suspension (3 sources) take 3 g by mouth once daily as needed psyllium (Metamucil) 58.6 % powder Take 3 g of fiber by mouth Daily as needed Active valACYclovir 500 mg oral tablet (5 sources) Herpesvirus Nucleoside Analog DNA Polymerase Inhibitor, Herpes Simplex Virus Nucleoside Analog DNA Polymerase Inhibitor, Herpes Zoster Virus Nucleoside Analog DNA Polymerase Inhibitor Start: take 1 tablet by mouth twice daily as needed valACYclovir (Valtrex) 500 MG tablet Indications: Herpes simplex virus (HSV) infection Take 1 tablet (500 mg) by mouth 2 (two) times a day as needed (cold sores) 14 tablet 5 04/09/2024 Active Start: 01-18-2024 take 500 mg by mouth twice daily Valacyclovir Active 500 MG PO Twice daily January 18, 2024 12:00am Problems Active Problems Problem Classification Problem Date Documented Date Episodic/Chronic Anxiety disorders (3 sources) Generalized anxiety disorder; Translations: [Generalized anxiety disorder] Onset: 02-21-2023 02-21-2023 Chronic Asthma (4 sources) Unspecified asthma, uncomplicated; Translations: [Asthma] Onset: 08-09-2016 02-21-2023 Chronic Esophageal disorders (4 sources) Gastro-esophageal reflux disease without esophagitis; Translations: [Gastroesophageal reflux disease] Onset: 10-18-2018 02-21-2023 Chronic Genitourinary symptoms and ill-defined conditions (3 sources) Incontinence; Translations: [Mixed incontinence] Onset: 11-28-2018 02-21-2023 Chronic Immunizations and screening for infectious disease (1 source) Encounter for screening for human papillomavirus (HPV); Translations: [ENC SCREENING HUMAN PAPILLOMAVIRUS] Onset: 06-17-2022 Episodic Nonmalignant breast conditions (3 sources) Fibrocystic disease of breast; Translations: [Diffuse cystic mastopathy of unspecified breast] Onset: 11-28-2018 02-21-2023 Chronic Nonmalignant breast conditions (2 sources) Large breast; Translations: [Hypertrophy of breast] Onset: 02-01-2024 02-01-2024 Episodic Other female genital disorders (2 sources) Pruritus of vagina; Translations: [Other specified noninflammatory disorders of vagina] 06-10-2024 Episodic Other inflammatory condition of skin (3 sources) Seborrheic psoriasis; Translations: [Other psoriasis] Onset: 04-29-2019 02-21-2023 Chronic Other screening for suspected conditions (not mental disorders or infectious disease) (12 sources) Encounter for screening for malignant neoplasm of colon; Translations: [Encounter for screening for malignant neoplasm of cervix] Onset: 11-12-2021 Episodic Other upper respiratory disease (3 sources) Seasonal allergic rhinitis; Translations: [Other seasonal allergic rhinitis] Onset: 08-09-2016 02-21-2023 Chronic Residual codes; unclassified (1 source) Acquired absence [...] DEPEND] Onset: 08-01-2022 Episodic Unclassified (1 source) CONTACT W/AND (SUSP) EXPOS COVID-19; Translations: [CONTACT W/AND (SUSP) EXPOS COVID-19] Onset: 07-28-2022 Unclassified (1 source) Patient's noncompliance with other medical treatment and regimen due to unspecified reason; Translations: [Patient's noncompliance with other medical treatment and regimen due to unspecified reason] Onset: 09-13-2023 Past or Other Problems Problem Classification Problem Date Documented Da te Episodic/Chronic Menstrual disorders (6 sources) Dysmenorrhea; Translations: [Dysmenorrhea, unspecified] Onset: 11-28-2018 Resolved: 10-27-2023 10-27-2023 Chronic Miscellaneous mental health disorders (3 sources) Abnormal sexual function; Translations: [Sexual dysfunction, unspecified] Onset: 02-21-2023 02-21-2023 Episodic Other female genital disorders (3 sources) Premenstrual tension syndrome; Translations: [Premenstrual tension syndrome] Onset: 11-28-2018 Resolved: 10-27-2023 10-27-2023 Chronic Other gastrointestinal disorders (3 sources) Chronic constipation; Translations: [Other constipation] Onset: 02-27-2020 Resolved: 10-27-2023 10-27-2023 Episodic Residual codes; unclassified (1 source) Family history of malignant neoplasm of breast; Translations: [FAMILY HX MALIG NEOPLASM OF BREAST] Onset: 11-16-2021 Episodic Residual codes; unclassified (1 source) Family history of malignant neoplasm of other organs or systems; Translations: [FAM HX MALIG NEOPLASM OTH ORGN/SYS] Onset: 11-16-2021 Episodic Residual codes; unclassified (3 sources) Menopause present; Translations: [Asymptomatic menopausal state] Onset: 11-28-2018 Resolved: 10-27-2023 10-27-2023 Episodic Viral infection (3 sources) Herpes simplex; Translations: [Herpesviral infection, unspecified] Onset: 08-09-2016 02-21-2023 Episodic Results Test Name Value Interpretation Reference Range Facility [facility] 02-01-2024 L Specimen: [id number] Received: 02/01/249 Status: SOUT Req Num: [id number] Spec Type: Surgical Subm Dr: Manuel Willoughby MD Tissues: A Breast Reduction - Mammoplasty (RT) B Breast Reduction - Mammoplasty (LT) Procedures: HE/4, Gross/Micro L4/2 Age/ Patient Sex Location Account Attending Physician Henrietta Rivera 48/F [place] [id number] Manuel Willoughby MD SPEC NUM: [id number] RECD: 02/01/24 STATUS: CLAUDE VERDUZCO NUM: [id number] BRAYAN: 02/01/[address] [facility] [address]: Manuel Willoughby MD ENTERED: 02/01/24-1299 [facility] DR: SPEC TYPE: Surgical DEPT: S ORDERED: HE/4, Gross/Micro L4/2 ORDERED: HE/4, Gross/Micro L4/2 Pathological Diagnosis A, right breast tissue, mammoplasty reduction: -Benign skin and hypertrophic breast soft tissue and glandular tissue displaying mild collagenous stromal fibrosis and occasional ectatic ducts (570 g) -No malignancy or any atypical change observed B, left breast tissue, mammoplasty reduction: -Benign skin and hypertrophic breast soft tissue and glandular tissue (588 g) with occasional small foci of mild ductal epithelial hyperplasia of the usual type (UDH), and occasional small ectatic ducts, otherwise without malignancy or any other atypical changes observed Clinical Information Macromastia Right 564 gm, Left, 582 gm Gross Description A. Received in formalin labeled with the patient's name, date of and right breast tissue is a 570.4 g, 19.4 x 18.2 x 5.1 cm aggregate of unremarkable gaona skin with underlying fibroadipose tissue. No lesions or scars are noted on the skin surface. Cut sections demonstrate unremarkable breast parenchyma comprised of approximately 30% fibrous tissue and 70% adipose tissue. No discrete masses or lesions are present. Ball Rolling Machine Operator sections are submitted in A1?A2. ---- Specimen: [id number] Received: 02/01/24 Status: CLAUDE Verduzco Num: [id number] Spec Type: Surgical Subm Dr: Manuel Willoughby MD Tissues: A Breast Reduction - Mammoplasty (RT) B Breast Reduction - Mammoplasty (LT) Procedures: Julia MELÉNDEZ/Manuel L4/2 ---- Patient: RiveraHenrietta Baljeet [id number] (Continued) ---- Specimen: [id number] Received: 02/01/24 (Continued) Gross Description (Continued) Signed (signature on file) Neena Esposito MD 02/03/24 1739 ---- Specimen: [id number] Received: 02/01/24 Status: CLAUDE Verduzco Num: [id number] Spec Type: Surgical Subm Dr: Manuel Willoughby MD Tissues: A Breast Reduction - Mammoplasty (RT) B Breast Reduction - Mammoplasty (LT) Procedures: Julia MELÉNDEZ/Manuel L4/2 ---- Patient: Henrietta Rivera [id number] (Continued) ---- Specimen: [id number] Received: 02/01/24-125 (Continued) Gross Description (Continued) Time of collection: 02/01/2024 at 1114 Time placed in formalin: 02/01/2024 at 1228 Placed in 10% neutral buffered formalin Time grossed: 02/01/2024 at 1423 B. Received in formalin labeled with the patient's name, date of and left breast tissue is a 587.6 g, 21.3 x 16.4 x 3.6 cm aggregate of unremarkable gaona skin with underlying fibroadipose tissue. No lesions or scars are noted on the skin surface. Cut sections demonstrate unremarkable breast parenchyma comprised of approximately 40% fibrous tissue and 60% adipose tissue. No discrete masses or lesions are present. Ball Rolling Machine Operator sections are submitted in B1?B2. Time of collection: 02/01/2024 at 1143 Time placed in formalin: 02/01/2024 at 1228 Placed in 10% neutral buffered formalin Time grossed: 02/01/2024 at 1432 TW CPT Codes [id number] ---- ---- Specimen: [id number] Received: 02/01/24 Status: CLAUDE Verduzco Num: [id number] Spec Type: Surgical Subm Dr: Manuel Willoughby MD Tissues: A Breast Reduction - Mammoplasty (RT) B Breast Reduction - Mammoplasty (LT) Procedures: HEJulia Day/Manuel L4/2 ---- Patient: Henrietta Rivera [id number] (Continued) ---- Signed (signature on file) Neena Esposito MD (more content not included)... Normal [facility] ECG 12 lead ECGon 01-18-2024 ECG 12 lead ECG [address] [address] Electrocardiograph Report Signed Patient: Henrietta Rivera MR#: [id number] : 1975 Acct:[id number] Age/Sex: 48 / F ADM Date: 01/18/24 Loc: PS Room: Type: [facility] Attending Dr: Manuel Willoughby MD Ordering Provider: Manuel Willoughby MD Date of Service: 01/18/2402/05/1320 ECG/ECG 12 lead ECG: pst Copies to: Test Reason : Blood Pressure : / mmHG Vent. Rate : 070 BPM Atrial Rate : 072 BPM P-R Int : 150 ms QRS Dur : 086 ms QT Int : 384 ms P-R-T Axes : 060 025 033 degrees QTc Int : 414 ms Normal sinus rhythm Possible Left atrial enlargement Borderline ECG No previous ECGs available Confirmed by ALEC GARCIA MD ([id number]) on 01/19/2024 3:09:38 PM Referred By: OJ Electronically Signed By:ALEC GARCIA MD Transcribed By: [facility] Signed By Alec Garcia MD 0 01/19/24 1509 Normal [facility] Progress Noteson 09-13-2023 Photonics Technician Authentication Interface Message Text Pt left the waiting room at her scheduled appointment time. She had been inthe waiting room about 4 minutes. She called the [place]. Slava Helms, MEDICAL BILLING AND CODING SPECIALIST-PRINTED CIRCUIT PHOTOGRAPHER Normal [facility] [employer] [facility] XR CHEST 2 VIEWSon 3 XR CHEST 2 VIEWS CLINICAL HISTORY: xr COMPARISON: FINDINGS: The cardiomediastinal silhouette is unremarkable. The lungs are free of infiltrates effusions or consolidations. The bones and soft tissues are within normal limits. IMPRESSION: There are no acute cardiopulmonary changes. ELECTRONICALLY SIGNED BY: Marcus Brunner MD Normal Not Available Cytology Cervical or vaginal smear or scraping studyOrdered By: Edwige Sullivan on 07-01-2023 [facility] Outside Colonoscopyon 2021 Outside Colonoscopy [id number] 0CD:127 Normal [facility] Reminderson 07-28-2022 Reminders - From: Carlie Mack LPN To: N - Clinical; Sent: 07/28/2022 11:15:46 EST Show up: 06/27/2032 07:00:00 EST Subject: colonoscopy recall Due Date/Time: 07/27/2032 07:00:00 EST Reminder/Recall Patient is due for screening colonoscopy 07/27/2032. Normal [facility] Lab Reportson 07-25-2022 Lab Reports [id number] 0CD:127 Normal [facility] Covid-19 PCR (CVDTB)on 07-14 SARS-CoV-2 (COVID-19) RNA NICHELLE+probe Ql (Unsp spec) Not detected Normal NOT DETECTED [facility] Comment on above: Result Comment: When [...] for this test is supported by the [place] of Health and Human Service's declaration that [...] used). Performed By: #### C VDTB #### [facility] [address] [place] [address] Dr. Charisse Esposito Consent for Procedure/Surger yon 07-14-2022 Consent for Procedure/Surgery [id number] 0CD:127 Normal [facility] Facesheeton 07-14-2022 Facesheet [id number]#1.0 0CD:127 [facility] Pre-Certification Formon Pre-Certification Form [id number]. 00CD:127 Normal [facility] Physician Referralon 022 Physician Referral [id number]#1.0 0CD:127 Normal [facility] PAP ACOG PANEL 2: 30 to 65on 06-23-2022 . . Normal [facility] Comment on above: Result Comment: Perf ormed at: WB Performed By: #### [id number] #### [facility] [address] [address] [address] Charisse Esposito Age Gdln ACOG Testing - [facility] Comment on above: Performed By: #### [id number] #### [facility] [address] [place] [address] Dr. Charisse Esposito DIAGNOSIS: Comment Normal [facility] Comment on above: Result Comment: NEGA TIVE FOR INTRAEPITHELIAL LESION OR MALIGNANCY. Performed at: WB Performed By: #### [id number] #### [facility] [address] [address] [address] Charisse Esposito HPV Aptima Negative Normal Negative [facility] Comment on above: Result Comment: This nucleic acid amplification test detects fourteen high-risk HPV types (16,18,31,33,35,39,45,51,52,56,58,59,66,68) without differentiation. Performed at: =G Performed By: #### [id number] #### [facility] [address] [address] [address] Charisse Esposito HPV Genotype Reflex Comment Normal [facility] Comment on above: Result Comment: Crit eria not met, HPV Genotype not performed. Performed at: WB Performed By: #### [id number] #### [facility] [address] [place] [address] Dr. Charisse Esposito Methodology: Comment Normal [facility] Comment on above: Result Comment: This liquid based ThinPrep(R) pap test was screened with the use of an image guided system. Performed at: WB Performed By: #### [id number] #### [facility] [address] [address] [address] Charisse Esposito Note: Comment Normal [facility] Comment on above: Result Comment: The Pap smear is a screening test designed to aid in the detection of premalignant and malignant conditions of the uterine cervix. It is not a diagnostic procedure and should not be used as the sole means of detecting cervical cancer. Both false-positive and false-negative reports do occur. . Performed at: WB Performed By: #### [id number] #### [facility] [address] [address] [address] Charisse Esposito Performed by: Comment Normal [facility] Comment on above: Result Comment: Rosita Chaudhari, Personal Investment Adviser (ASCP) Performed at: WB Performed By: #### [id number] #### [facility] [address] [place] [address] Dr. Charisse Esposito Specimen adequacy: Comment Normal [facility] Comment on above: Result Comment: Sati sfactory for evaluation. No endocervical component is identified. Performed at: WB Performed By: #### [id number] #### [facility] [address] [place] [address] Dr. Charisse Esposito Physician Referralon 022 Physician Referral [id number] 0CD:127 Normal [facility] MG MAMM SCREEN 3D JOE CADon 11-12-2021 MG MAMM SCREEN 3D JOE CAD Patient: HENRIETTA RIVERA Exam Date: 11/12/2021 : 1975 Gender:F Ordering : DR LOCO GREEN Admission #: [id number] Family : Order #: [id number] CLICK HERE TO VIEW EXAM RADIOLOGY REPORT [...] brain cancer at age 58. LOCATION: [facility] BREAST COMPOSITION: Heterogeneously dense,which may obscure [...] Charles MD on 11/12/2021 at 11:59 Normal [facility] Vital Signs Date Time Vital Sign Value Performing Clinician Facility 06-10-2024 09:59-0400 Body height 162.6 cm [email or web address] Phone: [facility] 06-10-2024 09:59-0400 Body mass index (BMI) [Ratio] 27.81 kg/m2 [email or web address] Phone: [facility] 06-10-2024 09:59-0400 Body weight 73.48 kg [email or web address] Phone: [facility] 06-10-2024 09:59-0400 Diastolic blood pressure 78 mm[Hg] [email or web address] Phone: [facility] 06-10-2024 09:59-0400 Systolic blood pressure 118 mm[Hg] [employer] Work Phone: [facility] 02-01-2024 14:30-0400 Diastolic blood pressure 74 mm[Hg] MD Loco Green Work Phone: [facility] 02-01-2024 14:30-0400 Heart rate 81 /min MD Loco Green Work Phone: [facility] 02-01-2024 14:30-0400 Respiratory rate 20 /min MD Loco Green Work Phone: [facility] 02-01-2024 14:30-0400 SaO2% (BldA) [Mass fraction] 95 % MD Loco Green Work Phone: [facility] 02-01-2024 14:30-0400 Systolic blood pressure 118 mm[Hg] MD Loco Green Work Phone: [facility] 02-01-2024 13:07-0400 Body temperature 97.4 [degF] MD Loco Green Work Phone: [facility] 02-01-2024 12:37-0400 Inhaled oxygen flow rate 8 L/min MD Loco Green Work Phone: [facility] 02-01-2024 10:21-0400 Body height 162.56 cm MD Loco Green Work Phone: [facility] 02-01-2024 10:21-0400 Body mass index (BMI) [Ratio] 27.8 kg/m2 MD Loco Green Work Phone: [facility] 02-01-2024 10:21-0400 Body weight 73.48 kg MD Loco Green Work Phone: [facility] Encounters Encounter Date Encounter Type Care Provider Facility Start: 06-10-2024 End: 06-10-2024 Bamboo flowsheet Rony Evelia DO Work Phone: [facility] Start: 06-10-2024 End: 06-10-2024 Bamboo flowsheet Rony Evelia DO Work Phone: [facility] Start: 06-10-2024 End: 06-10-2024 Office outpatient visit 15 minutes Rony Evelia DO Work Phone: [facility] Comment on above: Vaginal itching Start: 06-10-2024 End: 06-10-2024 ambulatory RONY EVELIA Not Available Start: 02-01-2024 End: 02-01-2024 Admission to same day surgery center MD Loco Green Work Phone: [facility] [place] Start: 02-01-2024 End: 02-01-2024 ambulatory MD Loco Green Work Phone: [facility] Work Phone: Start: 01-18-2024 End: 01-18-2024 Patient encounter procedure MD Loco Green Work Phone: [facility] Work Phone: Start: 01-18-2024 End: 01-18-2024 ambulatory MD Loco Green Work Phone: [facility] Work Phone: Start: 01-18-2024 Encounter for preprocedural cardiovascular examination Manuel Willoughby [facility] Start: 11-02-2023 End: 11-02-2023 ambulatory AMARILYS TEAGAN Not Available Start: 10-31-2023 End: 10-31-2023 ambulatory LOCO GREEN Not Available Start: 10-31-2023 End: 10-31-2023 ambulatory AMARILYS TEAGAN Not Available Start: 10-24-2023 End: 10-24-2023 ambulatory MICHAEL DEPKRISTIN Not Available Start: 10-19-2023 End: 10-19-2023 ambulatory AMARILYS TEAGAN Not Available Start: 10-17-2023 End: 10-17-2023 ambulatory AMARILYS TEAGAN Not Available Start: 10-12-2023 End: 10-12-2023 ambulatory ESPINOZA COLEMAN Not Available Start: 10-10-2023 End: 10-10-2023 ambulatory AMARILYS TEAGAN Not Available Start: 10-06-2023 End: 10-06-2023 ambulatory AMARILYS TEAGAN Not Available Start: 10-03-2023 End: 10-03-2023 ambulatory MEGAN L DAUCH-ARLENE Not Available Start: 09-19-2023 End: 09-19-2023 ambulatory RONY EVELIA Not Available Start: 09-17-2023 Letter encounter Beronica cantrell Start: 09-13-2023 ambulatory UNKNOWN PROVIDER Facili ty:[facility] Start: 09-13-2023 End: 09-13-2023 Patient encounter procedure Slava Helms MEDICAL BILLING AND CODING SPECIALIST-PRINTED CIRCUIT PHOTOGRAPHER Work Phone: [facility] Comment on above: No-show for appointm ent (Primary Dx) Start: 08-10-2023 End: 08-10-2023 ambulatory KYRA BRYAN Not Available Start: 07-17-2023 End: 07-17-2023 ambulatory LUARA HWANG Not Available Start: 07-28-2022 Encounter for preprocedural laboratory examination DR NATY ROBERT [facility] Start: 07-27-2022 End: 07-28-[address] NATY ROBERT Facility:[facility] Start: 07-23-2022 End: 07-24-[address] NATY ROBERT Facility:[facility] Start: 07-23-2022 End: 07-24-2022 Encounter for preprocedural laboratory examination DR NATY ROBERT Facility:[facility] Start: 07-12-2022 End: 07-13-2022 ambulatory Naty ROBERT [facility] Start: 06-15-2022 End: 06-15-[address] RONY ALTAMIRANO Facility:[facility] Start: 06-15-2022 ambulatory Naty ROBERT Facility:[facility] Start: 11-12-2021 End: 11-13-[address] RONY ATLAMIRANO Facility:[facility] Procedures Date Procedure Procedure Detail Performing Clinician Start: 02-01-2024 Reduction mammoplasty Nikhil Green Work Phone: Start: 12-04-2023 Mammography Rony Fazi o DO Work Phone: Start: 07-01-2023 Microscopic observat ion [Identifier] in Cervix by Cyto stain Rony Evelia DO Work Phone: Start: 07-01-2023 Cytp cerv/vag auto t hin layer prep mnl screen Kyra ALEXIS Work Phone: Start: 07-27-2022 Colonoscopy Rony Fazi o DO Work Phone: Plan of Treatment Date Care Activity Detail Author Start: 07-27-2032 Screening for malign ant neoplasm of colon [facility] Start: 07-01-2028 Screening for malign ant neoplasm of cervix [facility] Start: 10-21-2027 Cholesterol [Mass/volume] in Serum or Plasma Cholesterol [facility] Start: 12-03-2024 Screening for malign ant neoplasm of breast Mammogram [facility] Start: 11-05-2024 End: 11-05-2024 Patient encounter procedure 11/05/2024 9:15 AM EDT Office [facility] [address] [place] [address] Loco Green MD [address] [place] [address] [facility] Start: 06-24-2024 End: 06-24-2024 Patient encounter procedure 06/24/2024 11:00 AM EST Office Visit [facility] OB [address] [place] [phone] Rony Altamirano, DO [address] [place], [place] [id number] [facility] Start: 06-10-2024 End: 06-10-2024 Patient encounter procedure 06/10/2024 9:30 AM EDT Office Visit [facility] [address] [place] [address] Rony Altamirano, DO [address] [place], [place] [id number] Arrived [facility] Comment on above: Arrived Start: 04-14-2024 Influenza vaccination Influenza Vacc ine (#1) [facility] Start: 02-01-2024 [facility] Start: 02-01-2024 [facility] Start: 12-30-2023 Screening for malign ant neoplasm of breast Mammography [facility] Start: 04-14-2023 COVID-19 Vaccine ( season) COVID-19 Vaccine ( season) [facility] Start: 04-14-2023 Influenza vaccination Influenza Vacc ine (#1) [facility] Start: 2023 Shingles (RZV) Vacci ne (1 of 2) Shingles (RZV) Vaccine (1 of 2) [facility] Start: 2018 Cholesterol [Mass/volume] in Serum or Plasma Cholesterol [facility] Start: 2018 Screening for malign ant neoplasm of colon [facility] Start: 1994 Screening for malign ant neoplasm of cervix Pap Smear [facility] Start: 1991 Hepatitis C screening Hepatitis C An tibody [facility] Start: 1991 Tetanus + diphtheria + acellular pertussis vaccine (product) Tdap Booster [facility] Start: 1988 HIV screening HIV Test [facility] Start: 1973 Hepatitis B vaccination Hepati tis B (HBV) Vaccine (1 of 3 - 3-dose series) [facility] Start: 1973 Screening for malign ant neoplasm of colon [facility] CHLAMYDIA TRACHOMATI S (GENITO/STI) CHLAMYDIA TRACHOMATIS (GENITO/STI) Lab Routine Vaginal itching Ordered: 06/10/2024 [facility] Comment on above: Ordered: 06/10/2024 Neisseria gonorrhoea e DNA [Presence] in Unspecified specimen by NICHELLE with probe detection Neisseria gonorrhea DNA probe, direct Lab Routine Vaginal itching Ordered: 06/10/2024 [facility] Comment on above: Ordered: 06/10/2024 Patient Education Know your Meds [facility] Work Phone: Patient referral [facility] Work Phone: SURESWAB(R) ADVANCED VAGINITIS PLUS, TMA SURESWAB(R) ADVANCED VAGINITIS PLUS, TMA Pathology and Cytology Routine Vaginal itching Ordered: 06/10/2024 [facility] [employer] Work Phone: Comment on above: Ordered: 06/10/2024 Immunizations Immunization Date Immunization Notes Care Provider Fa cility 10-19-2020 COVID-19 Ad26.COV2.S (Juan Luis) MD Loco Green Work Phone: [facility] 05-21-2018 influenza, injectabl e, quadrivalent, contains preservative Slava Helms MEDICAL BILLING AND CODING SPECIALIST-PRINTED CIRCUIT PHOTOGRAPHER Work Phone: [facility] 05-21-2018 influenza virus vaccine, unspecified formulation Slava Helms MEDICAL BILLING AND CODING SPECIALIST-PRINTED CIRCUIT PHOTOGRAPHER Work Phone: [facility] Payers Date Payer Category Payer Self-pay [id number] 2023 Unknown ANTHEM - BLUE CR OSS BLUE CROSS/HMO,PPO,POS [id number] 2023-Present [address] [place] [id number] PPO [id number] 2021 Blue Cross Blue Shield BCBS [id number] 1973 Unknown [id number] 2.16840.1.738570.3.579.2 .593 1973 Unknown [id number] 2.16840.1.690491.3.579.2 .593 1973 Unknown [id number] 2.16840.1.682086.3.579.2 .593 1973 Unknown [id number] 2.16840.1.220483.3.579.2 .593 1973 Unknown [id number] 2.16840.1.074655.3.579.2 .727 1973 Unknown [id number] 2.16840.1.990479.3.579.2 .727 1973 Unknown [id number] 2.16840.1.103768.3.579.2 .732 1973 Unknown [id number] 2.16.840.1.264394.3.579.2 .1258 1973 Unknown [id number] 2.16.840.1.305344.3.579.2 .1258 1973 Unknown [id number] 2.16.840.1.612430.3.579.2 .1258 1973 Unknown [id number] 2.16.840.1.267136.3.579.2 .1258 1973 Unknown [id number] 2.16.840.1.792397.3.579.2 .1258 1973 Unknown [id number] 2.16840.1.266039.3.579.2 .1258 1973 Unknown [id number] 2.840.1.385206.3.579.2 .1258 1973 Unknown [id number] 2.16840.1.648548.3.579.2 .1258 1973 Unknown [id number] 2.16840.1.322150.3.579.2 .1258 1973 Unknown [id number] 2.16840.1.767388.3.579.2 .1258 1973 Unknown [id number] 2.16840.1.902728.3.579.2 .1258 1973 Unknown [id number] 2.16.840.1.208838.3.579.2 .1258 1973 Unknown [id number] 2.16.840.1.607587.3.579.2 .1258 1973 Unknown [id number] 2.16.840.1.907363.3.579.2 .1258 1973 Unknown [id number] 2.16.840.1.043335.3.579.2 .1258 1959 Unknown [id number] Unknown [id number] 2.16.840.1.173490.3.579.2 .531 Unknown [id number] 2.16.840.1.846124.3.579.2 .531 Social History Date Type Detail Facility Tobacco smoking stat [facility] Tobacco smoking consumption unknown [facility] Start: 1975 Sex Assigned At Female [facility] Start: 01-30-2023 Gender identity Identifies as female gender (finding) [facility] Start: 02-20-2023 End: 10-31-2023 Sexual orientation Not on file [facility] Start: 10-04-2023 End: 01-18-2024 Tobacco smoking status CTIS Ex-smoker (finding) [facility] Start: 08-14-1987 End: 08-14-1991 History of tobacco use Current smoker [facility] Start: 08-14-1987 End: 08-14-1991 History of tobacco use Cigarette Smoker [facility] Start: 02-20-2023 End: 10-04-2023 Cigarettes smoked current (pack per day) - Reported 0.3 [facility] Start: 10-04-2023 Tobacco use and exposure Smokeless tobacco non-user [facility] Start: 10-31-2023 End: 06-10-2024 Alcoholic beverage intake Current drinker of alcohol (finding) [facility] How often to you hav e a drink containing alcohol? Never [facility] How many standard drinks containing alcohol do you have on a typical day? Patient does not drink [facility] Start: 01-25-2023 Tobacco Comment Ex light cigarette smoker(1-9 cigarettes/day) [facility] Start: 01-25-2023 Alcohol Comment Alcohol: 1-2 drinks/monthly or less Caffeine: 1-2 cups/day [facility] Start: 01-30-2023 Sexual orientation Heterosexual (finding) [facility] Goals Date Patient Goal Desired Activity /State History of Present illness Narrative 06-10-2024 Kathy Geller LPN - 06/10/2024 9:30 AM EDT Note Date & Type Note Facility 06-10-2024 History of Presen t illness Narrative Reason for Appointment: Patient ID: Henrietta Rivera is a 49 y.o. female who presents for Vaginal Itching and lump on labia Patient presents today for Consult appointment. MEDICATIONS Current Outpatient Medications Medication Instructions albuterol 2.5 mg, Nebulization, Every 6 hours PRN estrogens (conjugated) (PREMARIN) 0.3 mg, Oral, Daily, Take daily for 21 days then do not take for 7 days. Fluticasone-Salmeterol (Wixela Inhub) 250-50 MCG/ACT aerosol powder USE 1 INHALATION ORALLY TWICE DAILY ibuprofen 400 mg, Oral, 3 times daily PRN loratadine (CLARITIN) 10 mg, Oral, Daily PRN omeprazole (PriLOSEC) [address] capsule TAKE 1 CAPSULE BY MOUTH DAILY DO NOT CRUSH OR CHEW omeprazole (PRILOSEC) 40 mg, Oral, Daily PRN, Do not crush or chew. psyllium (Metamucil) 58.6 % powder 3 g of fiber, Oral, Daily PRN valACYclovir (VALTREX) 500 mg, Oral, 2 times daily PRN ALLERGIES Allergies Allergen Reactions Montelukast Other Reaction(s): muscle aches PROBLEMS Active Ambulatory Problems Diagnosis Date Noted Asthma ([facility]) 08/09/2016 Fibrocystic breast changes 11/28/2018 Gastroesophageal reflux disease 10/18/2018 Generalized anxiety disorder ([facility]) 02/21/2023 Herpes simplex virus (HSV) infection 08/09/2016 Inverse psoriasis ([facility]) 04/29/2019 Mixed incontinence 11/28/2018 Seasonal allergic rhinitis 08/09/2016 Sexual dysfunction 02/21/2023 Resolved Ambulatory Problems Diagnosis Date Noted Chronic constipation 02/27/2020 Dysmenorrhea 11/28/2018 Excessive and frequent menstruation 12/18/2018 Menopause 11/28/2018 Premenstrual tension syndrome 11/28/2018 Past Medical History: Diagnosis Date Bilateral fibrocystic breast changes Depression ([facility]) GERD (gastroesophageal reflux disease) Seasonal allergies STD (female) HISTORY PAST MEDICAL HISTORY SOCIAL HISTORY Past Medical History: Diagnosis Date Asthma ([facility]) Bilateral fibrocystic breast changes Depression ([facility]) Dysmenorrhea GERD (gastroesophageal reflux disease) Mixed incontinence Seasonal allergies STD (female) Chlamydia, Herpes simplex virus (HSV) Social History Tobacco Use Smoking status: Former Current packs/day: 0.00 Average packs/day: 0.3 packs/day for 4.0 years (1.0 ttl pk-yrs) Types: Cigarettes Start date: 08/14/1987 Quit date: 08/14/1991 Years since quittin.8 Smokeless tobacco: Never Tobacco comments: Ex light cigarette smoker(1-9 cigarettes/day) Vaping Use Vaping status: Never Used Substance Use Topics Alcohol use: Yes Comment: Alcohol: 1-2 drinks/monthly or less Caffeine: 1-2 cups/day Drug use: Never FAMILY HISTORY Family History Problem Relation Name Age of Onset Diabetes Mother Lore Yan Arthritis Mother Lore Yan Diabetes Father Jonnathan Yan Hypertension Father Jonnathan Yan Stroke Father Jonnathan Yan No Known Problems Sister Heart failure Brother Cancer Maternal Grandmother Lore Beaver Hypertension Maternal Grandfather Jero Yan Brain cancer Paternal Grandmother No Known Problems Daughter 2 Breast cancer Other Maternal Aunt SURGICAL HISTORY Past Surgical History: Procedure Laterality Date COLONOSCOPY 07/27/2022 normal ENDOMETRIAL ABLATION 01/10/2020 HYSTERECTOMY 06/22/2020 Hysterectomy/Bilateral Salpingectomy OTHER SURGICAL HISTORY Lymphectomy on neck (adolescent) TUBAL LIGATION 1997 REVIEW OF SYSTEMS Review of Systems: Review of Systems All other systems reviewed and are negative. OBJECTIVE Objective: Physical Exam Genitourinary: Genitourinary Comments: Right sided inflammation. Right Labia: skin changes. Vitals: Estimated body mass index is 27.81 kg/m as calculated from the following: Height as of this encounter: 5' 4 . Weight as of this encounter: 162 lb. BP: 118/78 No LMP recorded. Patient is postmenopausal. ASSESSMENT & PLAN ICD-10-CM 1. Vaginal itching N89.8 SURESWAB(R) ADVANCED VAGINITIS PLUS, TMA CHLAMYDIA TRACHOMATIS (GENITO/STI) Neisseria gonorrhea DNA probe, direct Patient presents for right sided vaginal itching. No abnormalities and advised patient to get hydrocortisone cream for 1-2 weeks and if persist patient to return to clinic for biopsy if needed due to vaginal itching., Documented by Kathy Geller LPN on behalf of: Rony Altamirano DO documented in this encounter [facility] History of Present illness Narrative 09-13-2023 Slava Helms, MEDICAL BILLING AND CODING SPECIALIST-PRINTED CIRCUIT PHOTOGRAPHER - 09/13/2023 11:29 AM EST Note Date & Type Note Facility 09-13-2023 History of Presen t illness Narrative Pt left the waiting room at her scheduled appointment time. She had been inthe waiting room about 4 minutes. She called the [place]. PRINCESS Maier documented in this encounter [facility] Clinical Note 07-27-2022 Note Date & Type [...] in good condition. CC: Family physician [facility] Clinical Note 07-13-2022 Note Date & [...] vaccine, inactivated - Not Given Patient Refuses [facility] Comment on above: Result Comment: Elec tronically Signed By: TARA GOVEA, Naty Garcia\Date and Time Signed: 07/13/22 13:08 EST Evaluation note Note Date & Type Note Facility Evaluation note Diagnosis No-show for appointment- Primary documented in this encounter [facility] Evaluation note Note Date & Type Note Facility Evaluation note No assessment information [facility] Work Phone: Evaluation note Note Date & Type Note Facility Evaluation note Diagnosis Vaginal itching Pruritus of genital organs documented in this encounter [facility] Discharge instructions Note Date & Type Note Facility Hospital Discharge instructions Additional Instructions DISCHARGE INSTRUCTIONS FOR PLASTIC/RECONSTRUCTIVE SURGERY YOUR ACTIVITY MAY INCLUDE -Going up and down stairs slowly. -Walking around the house or outside if the weather is satisfactory. -No driving until you are seen in our office and cleared for driving. -No lifting more than 10 pounds for 4 weeks from the date of surgery. WOUND CARE -NO smoking as it may compromise your wound healing. -Do not remove dressing until your post-operative appointment. -Keep your incision dry for 48 hours then, you may shower (no tub baths) and allow water to flow over your incision. -It is common to feel pulling or sharp sticking sensations in the area of the incision. PLEASE NOTIFY OUR OFFICE at [phone] if you: -Develop a fever of 101 degrees Fahrenheit, or higher. -Have increasing pain. -See redness or swelling around the incision. MEDICATION -Medications per Medication Reconciliation List. -Over the counter medications such as Acetaminophen and others may be used as directed for pain unless prescription was provided. Do NOT exceed 4 grams of Acetaminophen in a 24 hour period. -DO NOT use ibuprofen or NSAIDs unless directed by physician, as they may increase risk of bleeding. OTHER INSTRUCTIONS -No smoking as this increases post-operative complication rate. FOLLOW UP -Call the office at [phone] for a follow up appointment 1week. * AFTER HOURS PHONE NUMBER [phone] * [facility] Work Phone: Summary Purpose Family History Relationship Condition Age at Onset Recorded Date/T payam father Cerebrovascular accident (CVA) Unknown Type 2 diabetes mellitus Unknown Not Specified Type 2 diabetes mellitus Unknown brother Schizophrenia Unknown sister Malignant neoplasm of breast Unknown Advance Directives Advance Directive Response Recorded Date/ Time Advance Directives No December 03, 2 019 4:06pm Chief Complaint and Reason for Visit Chief Complaint macromastia Chief Complaint macromastia macromastia Additional Source Comments INFORMATION SOURCE (unrecogn ized section and content) DATE CREATED AUTHOR 08/05/2022 [facility] DATE CREATED AUTHOR AUTHOR'S ORGANIZ ATION 08/12/2022 [facility] DATE CREATED AUTHOR AUTHOR'S ORGANIZ ATION 09/14/2023 [facility] DATE CREATED AUTHOR AUTHOR'S ORGANIZ ATION 02/04/2024 [facility] DATE CREATED AUTHOR AUTHOR'S ORGANIZ ATION 06/10/2024 [facility] EPIC Care Teams (unrecognized sec tion and content) Team Status: Active Member Role Status Dates Loco Green MD Primary Care Provider Active Team Status: Inactive Member Role Status Dates Manuel Willoughby MD Attending Provider Active Start: January 18, 2024 End: January 18, 2024 Loco Green MD Primary Care Provider Active St art: January 18, 2024 End: January 18, 2024 Team Status: Inactive Member Role Status Dates Manuel Willoughby MD Attending Provider Active Start: February 01, 2024 End: February 01, 2024 Loco Green MD Primary Care Provider Active St art: February 01, 2024 End: February 01, 2024 Hydraulic Elevator Constructor Relationship Specialty Start Date End Date Loco Green MD [address] [place] [address] PCP - [employer] 12/12/22 Loco Green MD [address] [place] [address] PCP - General Internal Medicine 02/20/23 Hydraulic Elevator Constructor Relationship Specialty Start Date End Date Loco Green MD [address] [facility] [address] [place] [address] PCP - [employer] 12/12/22 Loco Green MD [address] [place] [address] PCP - General Internal Medicine 02/20/23 Goals (unrecognized section and content) Goals may be documented in a n alternate section Reason for Visit (unrecogniz ed section and content) Reason Comments Vaginal Itching lump on labia FOR RECORDS PERTAINING TO PATIENTS WHO ARE [...] BE BASED ON THE PRIMARY CLINICAL RECORDS. [facility]. provides no warranty or guarantee of the accuracy or completeness of information in this document.
== END 2024-06-24 20:19 | disposition home or self-care (01) ==
LOC: LAB 20:18
PROVIDERS: PCP Internal Medicine; Visit Provider Obstetrics & Gynecology
DX: Z01.419 Encounter for gynecological examination (general) (routine) without abnormal findings (principal)
CPT/HCPCS: 87624; 88175

== ENCOUNTER 2024-12-04 07:16 | Outpatient (OUT) | payer BC, SELFPAY ==
--- NOTE | 2024-12-04 07:26 | MM_ITS ---
Patient Name: PATRICK RIVERA MR#: [id number] : 1975 Exam Date: 12/04/2024 Ordering Doctor: DR Abbe Altamirano . RADIOLOGY REPORT PROCEDURE: MM TOMOSYNTHESIS SCREENING BI COMPARISON: MM TOMOSYNTHESIS SCREENING BI, 12/01/2023. MG MAMM SCREEN 3D JOE CAD, 12/29/2022. MG MAMM SCREEN 3D JOE CAD, 11/12/2021. MG MAMM SCREEN JOE W CAD, 12/11/2018. INDICATIONS: Screening for malignant neoplasm Calculator Name [facility] Breast Cancer Risk Assessment Tool 5 Year Breast Cancer Risk 1.70% Lifetime Breast Cancer Risk 14.50% Personal Breast Cancer No Personal Ovarian Cancer No Treatments None Family Cancers Sister with breast cancer at age 50; Aunt-maternal with breast cancer at age 52; Grandmother-maternal with brain cancer at age 60. LOCATION: [facility] BREAST COMPOSITION: The breasts are heterogeneously dense,which may obscure small masses. FINDINGS: RIGHT BREAST: No significant suspicious finding. Breast reduction surgery LEFT BREAST: No significant suspicious finding. Breast reduction surgery DIAGNOSTIC CATEGORY 1--NEGATIVE. RECOMMENDATIONS: ROUTINE MAMMOGRAM AND CLINICAL EVALUATION IN 12 MONTHS. PLEASE NOTE: A NORMAL MAMMOGRAM DOES NOT EXCLUDE THE POSSIBILITY OF BREAST CANCER. A CLINICALLY SUSPICIOUS PALPABLE LUMP SHOULD BE BIOPSIED. Dictated by: Guido Larios DO on 12/04/2024 at 08:38 Approved by: Guido Larios DO on 12/04/2024 at 08:40
== END 2024-12-04 07:17 | disposition home or self-care (01) ==
LOC: MAMMO 07:18
PROVIDERS: PCP Internal Medicine; Visit Provider Obstetrics & Gynecology
DX: Z12.31 Encounter for screening mammogram for malignant neoplasm of breast (principal); Z80.3 Family history of malignant neoplasm of breast; Z80.8 Family history of malignant neoplasm of other organs or systems
CPT/HCPCS: 77063; 77067

== ENCOUNTER 2025-07-03 16:30 | Outpatient (REF) | payer BC, SELFPAY ==
--- OUTSIDE RECORDS SUMMARY | 2025-07-03 10:00 | XMS_ITS | Encounter Summary ---
Author Organization [facility] Address [address] [place] [address] Care Team Providers Care Accordion Tuner Name Role Phone Luis Gilbert MD Primary Care Provider [phone] Reason for Visit * ReasonCommentsGynecologic Exam Encounter Details DateTypeDepartmentCare Team (Latest Contact Info)Dbspqaxxzmr90/20/2025 10:00 AM ESTOffice Visit [facility] [address] [place] [address] Abbe Altamirano DO [address] [place] [address] Well woman exam with routine gynecological exam; Encounter for screening mammogram for malignant neoplasm of breast; Postmenopausal state; Mass of left breast, unspecified quadrant; Osteoporosis, post-menopausal; Screening for osteoporosis; Encounter for osteoporosis screening in asymptomatic postmenopausal patient Social History Tobacco UseTypesPacks/DayYears UsedDateSmoking Tobacco: FormerCigarettes0.34 08/14/1987 - 08/14/1991Smokeless Tobacco: Never Comments:Ex light cigarette smoker(1-9 cigarettes/day) Alcohol UseStandard Drinks/WeekCommentsYes0 (1 standard drink = 0.6 oz pure alcohol)Alcohol: 1-2 drinks/monthly or less Caffeine: 1-2 cups/dayAUDIT-CAnswer Date RecordedQ1: How often do you have a drink containing alcohol?Never 02/20/2023Q2: How many drinks containing alcohol do you have on a typical day when you are drinking?Patient does not drink02/20/2023Q3: How often do you have six or more drinks on one occasion?Never02/20/2023HQ-2AnswerDate Recorded Patient Health Questionnaire-2 Ahtop051CommentsNoSex and Gender InformationValueDate RecordedSex Assigned at BwespPffhtx25/19/2023 8:30 AM EDT Legal KhkYvudig13/15/2023 8:11 PM EDTGender XhdveknaGguyix40/19/2023 8:30 AM EDT Sexual GneiwxrobbaLrbipkwn13/19/2023 8:30 AM EDTOccupationIndustryJob Start Date Job End DateCounselorNot on fileNot on fileNot on filedocumented as of this encounter Last Filed Vital Signs Vital SignReadingTime TakenCommentsBlood Ccnruvob675/7007/03/2025 10:05 AM EST Pulse--Temperature--Respiratory Rate--Oxygen Saturation--Inhaled Oxygen Concentration--Ffwrmr92.5 kg (162 lb)07/03/2025 10:05 AM ESTHeight--Body Mass Index27.8111/05/2024 10:34 AM EDTdocumented in this encounter Plan of Treatment DateTypeDepartmentCare Team (Latest Contact Info)Gbqowfxqsll39/31/2026 10:15 AM EDTOffice Visit [facility] [place] [facility] [address] [place] [id number] NameTypePriorityAssociated DiagnosesOrder ScheduleTHIN PREP TIS PAP AND HR HPV DNAPathology and CytologyRoutine Well woman exam with routine gynecological exam Ordered: 07/03/2025Left diagnostic mammogramImagingRoutine Mass of left breast, unspecified quadrant Expected: 07/03/2025 (Approximate), Expires: 09/02/2026DEXA bone densityImaging Routine Screening for osteoporosis Encounter for osteoporosis screening in asymptomatic postmenopausal patient Expected: 07/03/2025, Expires: 07/03/2026documented as of this encounter Visit Diagnoses Diagnosis Well woman exam with routine gynecological exam Routine gynecological examination Encounter for screening mammogram for malignant neoplasm of breast Postmenopausal state Asymptomatic postmenopausal status (age-related) (natural) Mass of left breast, unspecified quadrant Osteoporosis, post-menopausal Senile osteoporosis Screening for osteoporosis Special screening for osteoporosis Encounter for osteoporosis screening in asymptomatic postmenopausal patient documented in this encounter Care Teams Team MemberRelationshipSpecialtyStart DateEnd Luis Gilbert MD [address] [facility] [address] [place] [address] PCP - GeneralInternal Medicine02/20/23documented as of this encounter
--- OUTSIDE RECORDS SUMMARY | 2025-07-03 16:33 | XMS_ITS | Clinical Summary ---
Author Organization [facility] Address [address] [facility] [place] [address] Care Team Providers Care Community Service Representative Name Role Phone Slava Helms APRN-LANA Unavailable [phone] Source Comments The following information is NOT included in Care Everywhere downloads:Psychiatric notes, ECG results, Cardiac Rehab notes, Pulmonary Function notes, data from [facility] (includes but not limited toPregnancy data,audiograms, eye exams, pre-surgical evaluation notes, well-child exam data).[facility] Immunizations ImmunizationAdministration DatesNext DueInfluenza, injectable, quadrivalent, preservative (LVH=446)05/21/2018 Social History Tobacco UseTypesPacks/DayYears UsedDateSmoking Tobacco: Never Assessed Humiliation, Afraid, Rape, and Kick questionnaireAnswerDate RecordedWithin the last year, have you been afraid of your partner or ex-partner?No09/07/2023Within the last year, have you been humiliated or emotionally abused in other ways by your partner or ex-partner?No09/07/2023Within the last year, have you been kicked, hit, slapped, or otherwise physically hurt by your partner or ex-partner?No09/07/2023Within the last year, have you been raped or forced to have any kind of sexual activity by your partner or ex-partner?No09/07/2023 Social Connection and Isolation PanelAnswerDate RecordedIn a typical week, how many times do you talk on the phone with family, friends, or neighbors?More than three times a week09/07/2023How often do you get together with friends or relatives?Once a week09/07/2023How often do you attend restoration or yarsani services?More than 4 times per year09/07/2023o you belong to any clubs or organizations such as restoration groups, unions, fraternal or athletic groups, or school groups?Yes09/07/2023How often do you attend meetings of the clubs or organizations you belong to?More than 4 times per year09/07/2023re you , , , , never , or living with a partner? 09/07/2023Overall Financial Resource Strain (CARDIA)AnswerDate RecordedHow hard is it for you to pay for the very basics like food, housing, medical care, and heating?Not hard at all09/07/2023Fin[facility] [place] of Occupational Health - Occupational Stress QuestionnaireAnswerDate RecordedDo you feel stress - tense, restless, nervous, or anxious, or unable to sleep at night because yourmind is troubled all the time - these days?Not at all09/07/2023Exercise Vital SignAnswer Date RecordedOn average, how many days per week do you engage in moderate to strenuous exercise (like a brisk walk)?4 days09/07/2023On average, how many minutes do you engage in exercise at this level?40 min09/07/2023Hunger Vital SignAnswerDate RecordedWithin the past 12 months, you worried that your food would run out before you got the money to buymore.Never true09/07/2023Within the past 12 months, the food you bought just didn't last and you didn't have money to get more.Never true09/07/2023RAPARE - TransportationAnswerDate RecordedIn the past 12 months, has lack of transportation kept you from medical appointments or from getting medications?No09/07/2023In the past 12 months, has lack of transportation kept you from meetings, work, or from getting things needed for daily living?No09/07/2023Housing Stability Vital SignAnswerDate RecordedIn the last 12 months, was there a time when you were not able to pay the mortgage or rent on time?No09/07/2023In the last 12 months, how many places have you lived?In the last 12 months, was there a time when you did not have a steady place to sleep or slept in ashelter (including now)?No 09/07/2023EducationAnswerDate RecordedWhat is the highest level of school you have completed or the highest degree you have received?Bachelor's degree (e.g., BA, AB, BS)09/07/2023CommentsUnknownSex and Gender InformationValueDate RecordedSex Assigned at FbyhpCluvvf52/02/2024 10:30 AM ESTLegal SexFemale 08/03/2023 10:44 AM ESTGender LshwoldtQaymxf64/02/2024 10:30 AM ESTSexual OrientationNot on file Plan of Treatment Health MaintenanceDue DateLast CwpxVrbdgyopXdduardjwmr1973HIV Test 1988Hepatitis C Wqudxbyx00/26/1991Tdap Mliuiyh9403/08/1991Hepatitis A (HAV) Vaccine (optional start 19+ years)1992Hepatitis B (HBV) Vaccine (1 of 3 - 19+ 3-dose series)1992Pap Smear1994CRC Rpkujignv24/26/2018Cologuard (Stool DNA)2018FIT2018Pneumococcal Vaccine(s) (50+ yrs) (1 of 1 - PCV)2023Shingles (RZV) Vaccine (1 of 2)03/08/20230134Vtheqebdruo93/18/2024 12/29/2022, 06/15/2022, 11/12/2021, Additional history existsCOVID-19 Vaccine (2 - 2024- season)5010/19/2020Influenza Vaccine (#1)/03/2018 Tybiizaoeci09 Insurance Care Teams Team MemberRelationshipSpecialtyStart DateEnd Date Slava Helms, [place] [employer] [address] [place] [id number] APNPlastic Surgery10/14/23
--- OUTSIDE RECORDS SUMMARY | 2025-07-03 16:33 | XMS_ITS | Clinical Summary ---
Author Organization [employer] Address [id number] [place] [address] Care Team Providers Care Fisher Diving Name Role Phone No Pcp, No Pcp Primary Care Provider Unavailabl e Allergies No known active allergies Medications MedicationSigDispense QuantityRefillsLast FilledStart DateEnd DateStatus fexofenadine (BROOKLYN) 60 mg tablet 1 tablet.Active albuterol (PROAIR HFA) 90 mcg/actuation inhaler 0 Inhalers.05/07/2014ctive fluticasone-vilanterol (BREO ELLIPTA) 100-25 mcg/dose blister with device Indications:Mild intermittent asthma without complicationInhale 1 puff once daily. 1 Inhaler Active norgestimate-ethinyl estradiol (ORTHO-CYCLEN) 0.25-35 mg-mcg per tablet Take 1 tablet by mouth daily. 28 tablet Active nitrofurantoin, macrocrystal-monohydrate, (MACROBID) 100 mg capsule Take 1 capsule (100 mg total) by mouth 2 (two) times a day. 14 capsule 01/17/2018Active valACYclovir (VALTREX) 500 mg tablet Indications:HSV infectionTake 1 tablet (500 mg total) by mouth 2 (two) times a day. 10 tablet 04/08/2019Active Active Problems ProblemNoted DateDiagnosed LmjyMbcgit96/27/2016Herpes simplex virus (HSV) yxrazxuas52/27/2016Seasonal allergic vbwavtwv25/27/2016 Resolved Problems ProblemNoted DateDiagnosed DateResolved DateAtopic exltmacg85 Family History Medical HistoryRelationNameCommentsSchizophreniaBrotherDiabetesFatherBreast cancerMaternal AuntAunt Aruna on Maternal wvln30OptqtxzxNcjuhsOenfcdkmYovo StatusCommentsBrotherFatherMaternal AuntAunt Aruna on Maternal sideMother Social History Tobacco UseTypesPacks/DayYears UsedDateSmoking Tobacco: FormerSmokeless Tobacco: NeverAlcohol UseStandard Drinks/WeekCommentsNo0 (1 standard drink = 0.6 oz pure alcohol)ChildcareAnswerDate FldavswuQvepwuqniFjqdueg77/12/2019EmploymentAnswer Date VqaainafTkgpgtbvbsAwqqzex14/12/2019Purpose - LifeAnswerDate RecordedPurpose and direction in rldeVbzrdfj48/11/2021CommentsNoSex and Gender InformationValueDate RecordedSex Assigned at OaijfUfdrjx13/22/2021 8:56 PM EST Legal WocVfvmfu39/06/2015 11:31 AM EDTGender HskribodJhwzgn79/22/2021 8:56 PM ESTSexual KpvrvdzkdaeHppanntk00/22/2021 8:56 PM EST Last Filed Vital Signs Vital SignReadingTime TakenCommentsBlood Nvxgnxfy349/9210 3:29 PM EDT Loufx7839/16/2017 8:30 AM ESTTemperature--Respiratory Rate--Oxygen Saturation-- Inhaled Oxygen Concentration--Rfreep60.7 kg (147 lb)05/25/2017 3:29 PM EDTHeight 160 cm (5' 3 )09/29/2016 8:30 AM ESTBody Mass Index26.04009/29/2016 8:30 AM EST Plan of Treatment Health MaintenanceDue DateLast DoneCommentsDepression Dswvbgttb38/26/1985Tobacco Bqclgcdmt67/26/1985Adult BMI Higldjzcs95/26/1991DTaP,Tdap and Td Vaccines (1 - Tdap)1992Pap Smear09/29/Zoster (Shingles) Vaccine (1 of 2) 2023Influenza Lrodiax5304/14/2025 Medical Devices Not on file Procedures Procedure NamePriorityDate/TimeAssociated DiagnosisCommentsPAP SMEARRoutine 09/29/2016 11:29 AM EST from Last 3 Months or Most Recently Relevant to Health Maintenance Results * Pap Smear (09/29/2016 11:29 AM EST)Specimen (Source)Anatomical Location / LateralityCollection Method / VolumeCollection TimeReceived Time09/29/2016 11:29 AM EST09/30/2016 11:29 AM EST Narrative COPATH - 10/06/2016 9:13 AM EST [facility] ? [address] ? [place] [address] ? Gynecologic Cytology Consultation ? Patient Name: PATRICK YAN : 1975 (Age: 41) Gender: F Taken: 09/29/2016 Reported: 10/06/2016 Physician(s): Luis Valenzuela MD [phone]) Copy To: ?? [facility]. Rec. #:[id number] Acct: # [id number] Final Cytologic Interpretation Cervical-Endocervical ThinPrep: Satisfactory for evaluation. A transformation zone component is present. NEGATIVE FOR INTRAEPITHELIAL LESION OR MALIGNANCY. ?? cjg/10/06/2016 Electronically Signed Out By ?ERICKA Murphy(ASCP) Date of Last Menstrual Period: ? 10/18/2016 Other Clinical Conditions: Screening/Routine z01.419 Jet Blade Polisher exam wo/abn findings Source of Specimen Cervical-Endocervical ThinPrep ? Thin Prep Pap (LIGHT OIL OPERATOR) Fee Code(s): ?? G0145 The Pap test is a screening test with an inherent, but low, probability of error. The Pap test is primarily effective for the diagnosis and prevention of squamous cell carcinoma. Regular screening iscritical for prevention. ThinPrep liquid-based slides, which meet the Freight Car Inspector criteria for automated screening, have been screened by the ThinPrep Imaging System (as of 04/30/07) along with an additional manual rescreening by a thermite welder and, if indicated, by a pathologist.Luis Valenzuela MD 10/01/2016 Authorizing ProviderResult TypeResult StatusRobert Alexi Valenzuela MDPATHOLOGY/CYTOLOGY ORDERABLESFinal ResultPerforming OrganizationAddressCity/State/ZIP CodePhone Number COPATH from Last 3 Months or Most Recently Relevant to Health Maintenance Insurance Care Teams Team MemberRelationshipSpecialtyStart DateEnd Date No Pcp, No Pcp ALEJANDRO Trimble [id number] [facility] - [facility]12/11/18
--- OUTSIDE RECORDS SUMMARY | 2025-07-03 16:34 | XMS_ITS | Clinical Summary ---
Author Organization [facility] Address [address] [place] [place] [address] Care Team Providers Care Sanding Machine Operator Or Tender Name Role Phone Luis Gilbert MD Primary Care Provider [phone] Allergies Active AllergyReactionsCriticalityNoted DateComments Sulfamethoxazole-Peszaapumsor47/12/2025 Nausea and vomiting NfmviyaljuyKuj34/10/2023 Other Reaction(s): muscle aches Medications MedicationSigDispense QuantityRefillsLast FilledStart DateEnd DateStatus psyllium (Metamucil) 58.6 % powder Take 3 g of fiber by mouth Daily as neededActive albuterol (2.5 MG/3ML) 0.083% nebulizer solution Take 2.5 mg by nebulization every 6 (six) hours if needed for wheezingActive loratadine (Claritin) 10 MG tablet Take 10 mg by mouth Daily as needed for allergiesActive ibuprofen 800 MG tablet Take 400 mg by mouth 3 (three) times a day as needed for mild painActive Fluticasone-Salmeterol (Wixela Inhub) 250-50 MCG/ACT aerosol powder Indications:Mild intermittent asthma without complication (HCC)USE 1 INHALATION ORALLY TWICE DAILY 180 each 4Active omeprazole (PriLOSEC) [address] capsule Indications:Gastroesophageal reflux disease without esophagitisTake 1 capsule (20 mg) by mouth in the morning. Take before meals. Do not crush or chew.. 90 capsule 5Active estrogens, conjugated, (Premarin) 0.3 MG tablet Indications:Hormone imbalanceTake 1 tablet (0.3 mg) by mouth Daily Take daily for 21 days then do not take for 7 days. 90 tablet 503/6Active meloxicam (Mobic) 15 MG tablet Indications:Chronic midline low back pain without sciaticaTake 1 tablet (15 mg) by mouth Daily as needed for moderate pain 30 tablet 5Active valACYclovir (Valtrex) 500 MG tablet Indications:Herpes simplex virus (HSV) infectionTake 1 tablet (500 mg) by mouth 2 (two) times a day as needed (cold sores) 14 tablet 5Active Active Problems ProblemNoted DateDiagnosed DateSexual tcjfxtjifak30/11/2023Inverse psoriasis 04/29/2019Fibrocystic breast wfyhkqq9711/28/2018Mixed ipraqdibnjcr18/17/2019 Gastroesophageal reflux rfybgos8810/18/20186058Yfyejf73/27/2016Herpes simplex virus (HSV) ibgvnylvp36/27/2016Seasonal allergic kohfplax33/27/2016 Resolved Problems ProblemNoted DateDiagnosed DateResolved DateChronic yiqqlqnyekky51/16/2020 10/27/2023Excessive and frequent eviezpnmzlau37ysmenorrhea Menopause4Premenstrual tension syndrome Encounters DateTypeDepartmentCare MergPwmcptkljsq85/20/2025 10:00 AM [place] [address] Abbe Altamirano DO Well woman exam with routine gynecological exam; Encounter for screening mammogram for malignant neoplasm of breast; Postmenopausal state; Mass of left breast, unspecified quadrant; Osteoporosis, post-menopausal; Screening for osteoporosis; Encounter for osteoporosis screening in asymptomatic postmenopausal patient 07/03/2025[place] [address] Abbe Altamirano DO from Last 3 Months Immunizations ImmunizationAdministration DatesNext DueInfluenza, injectable, quadrivalent 05/21/2018 Family History Medical HistoryRelationNameCommentsHeart failureBrotherNo Known ProblemsDaughter 2DiabetesFatherJames AckermanHypertensionFatherJames AckermanStrokeFatherJames AckermanHypertensionMaternal GrandfatherJoseph AckermanCancerMaternal GrandmotherMary FisherArthritisMotherMary Aleyda AckermanDiabetesMotherMary Aleyda AckermanBreast cancerOtherMaternal AuntBrain cancerPaternal GrandmotherNo Known ProblemsSisterRelationNameStatusCommentsBrotherDeceased1 brotherDaughterAlive2 daughtersFatherJames AckermanDeceasedMaternal GrandfatherJoseph AckermanDeceased Maternal GrandmotherMary FisherDeceasedMotherMary Aleyda AckermanAliveOtherMaternal AuntPaternal GrandfatherDeceasedPaternal GrandmotherDeceasedSister1 sister Social History Tobacco UseTypesPacks/DayYears UsedDateSmoking Tobacco: FormerCigarettes0.34 08/14/1987 - 08/14/1991Smokeless Tobacco: Never Tobacco Cessation:Counseling Given: Not Answered Comments:Ex light cigarette smoker(1-9 cigarettes/day) Alcohol UseStandard Drinks/WeekCommentsYes0 (1 standard drink = 0.6 oz pure alcohol)Alcohol: 1-2 drinks/monthly or less Caffeine: 1-2 cups/dayROXYIT-CAnswer Date RecordedQ1: How often do you have a drink containing alcohol?Never 02/20/2023Q2: How many drinks containing alcohol do you have on a typical day when you are drinking?Patient does not drink02/20/2023Q3: How often do you have six or more drinks on one occasion?Never02/20/2023HQ-2AnswerDate Recorded Patient Health Questionnaire-2 Khhmo573CommentsNoSex and Gender InformationValueDate RecordedSex Assigned at TfhveRgpfsu82/19/2023 8:30 AM EDT Legal PnuFdrtbx81/15/2023 8:11 PM EDTGender XejufsijCdlmzo75/19/2023 8:30 AM EDT Sexual QonahlvduugLzrdfvot30/19/2023 8:30 AM EDTOccupationIndustryJob Start Date Job End DateCounselorNot on fileNot on fileNot on file Last Filed Vital Signs Vital SignReadingTime TakenCommentsBlood Qgekefzg747/7007/03/2025 10:05 AM EST Juyhr825811/05/2024 10:34 AM BRZVusorshktxe75.5 ??C (97.7 ??F)07/17/2023 8:12 AM ESTRespiratory Rate--Oxygen Xriopbuqiv96%11/05/2024 10:34 AM EDTInhaled Oxygen Concentration--Ndxsjj35.5 kg (162 lb)07/03/2025 10:05 AM EMGSpraym567.6 cm (5' 4 )11/05/2024 10:34 AM EDTBody Mass Index27.8111/05/2024 10:34 AM EDT Plan of Treatment DateTypeDepartmentCare Team (Latest Contact Info)Zgsqzqxtvtx36/31/2026 10:15 AM EDTOffice Visit [facility] [address] [place] [address] Health MaintenanceDue DateLast DoneCommentsCT Qcvfntnkyuos1973FIT-DNA 1975FIT1973FOBT1975 1651Eahwbkxmqvekw1973Pneumococcal Vaccine: Pediatrics (0 to 5 Years) and At-Risk Patients (6 to 64 Years) (1 of 2 - PCV)1992COVID-19 Vaccine (2 - season)/03/2021 Influenza Vaccine (#1)/03/20186338Qrzixbdgr00/23/776327/, 12/04/2024, 12/04/2023, Additional history existsPap Smear/06/2024, 3Cervical Cancer Yytirkjzz33/18/2028HPV/Zcvolz81/ Cqttlyfayci16/14/203212/, 2Colorectal Cancer Qoklbmnsv44/14/2032 Procedures Procedure NamePriorityDate/TimeAssociated DiagnosisCommentsMAMMO 3D,BILATERAL SCREENING MAMMOGRAM WITH DWSOOFIyazugj41/23/2025 1:17 PM EDTPAP SMEARRoutine 06/24/2024 12:00 AM ARRJLVCIKVKOBIHnttjgx05/14/2022 12:00 PM EST THINPREP TIS PAP REFLEX HPV MRNA E6/E7 (92824)Bcjzkpn9411/28/2018 from Last 3 Months or Most Recently Relevant to Health Maintenance Results * MAMMO 3D,BILATERAL SCREENING MAMMOGRAM WITH TOMOSY (12/04/2024 1:17 PM EDT) Anatomical RegionLateralityModalityRadiographic Imaging Narrative Authorizing ProviderResult TypeResult StatusNoms Provider Unallocated MDIMG XR PROCEDURESFinal Result * Pap Smear (06/24/2024 12:00 AM EST)Specimen (Source)Anatomical Location / LateralityCollection Method / VolumeCollection TimeReceived TimeSwabCervical swab / Unknown Narrative Authorizing ProviderResult TypeResult StatusFazio Nurse [facility] ObLAB CYTOLOGY ORDERABLESFinal ResultPerforming OrganizationAddressCity/State/ZIP CodePhone Number EXTERNAL LAB * Colonoscopy (07/27/2022 12:00 PM EST)Anatomical RegionLateralityModality EndoscopySpecimen (Source)Anatomical Location / LateralityCollection Method / VolumeCollection TimeReceived Time07/27/2022 12:00 PM EST Narrative 07/27/2022 12:00 PM EST PERFORMED AT [facility] LOCATION:[id number] normal Procedure Note CONVERSION, GENERIC - 12/28/2022 PERFORMED AT [facility] LOCATION:[id number] normal Authorizing ProviderResult TypeResult StatusLuis Gilbert MDENDOSCOPY PROCEDURE ORDERABLESFinal Result * THINPREP TIS PAP REFLEX HPV MRNA E6/E7 (81989) (11/28/2018)ComponentValueRef RangeTest MethodAnalysis TimePerformed AtPathologist SignatureCLINICAL INFORMATION:None givenNOMS LEGACY EXTERNAL LABLMP:11/25/18[facility] LEGACY EXTERNAL LABPREV. PAP:2 YEARSNOMS LEGACY EXTERNAL LABPREV. BX:BWENOMS LEGACY EXTERNAL LABSOURCE:Cervix, EndocervixNOMS LEGACY EXTERNAL LABSTATEMENT OF ADEQUACY:SEE COMMENTNOMS LEGACY EXTERNAL LABComment: Satisfactory for evaluation. Endocervical/transformation zone component present. INTERPRETATION/RESULT:Negative for intraepithelial lesion or malignancy.[facility] EXTER[facility] LABCOMMENT:This Pap test has been evaluated with computer assisted technology.[facility] LABCYTOTECHNOLOGIST:SEE COMMENTNOMS LEGACY EXTERNAL LABComment: JEFFY RYDER(ASCP) CT screening location: [facility], [address] [place] [address], [place] [address]. COMMENTSEE COMMENTNOMS LEGACY EXTERNAL LABComment: EXPLANATORY NOTE: The Pap is a screening test for cervical cancer. It is not a diagnostic test and is subject to false negative and false positive results. It is most reliable when a satisfactory sample, regularly obtained, is submitted with relevant clinical findings and history, and when the Pap result is evaluated along with historic and current clinical information. Specimen (Source)Anatomical Location / LateralityCollection Method / Volume Collection TimeReceived Time11/28/2018 Narrative Authorizing ProviderResult TypeResult StatusJonathan F LeakeECW LABSFinal Result Performing OrganizationAddressCity/State/ZIP CodePhone Number [facility] from Last 3 Months or Most Recently Relevant to Health Maintenance Insurance Care Teams Team MemberRelationshipSpecialtyStart DateEnd Vladimir, Luis Delong MD [address] [place] [address] PCP - GeneralInternal Medicine02/20/23
--- OUTSIDE RECORDS SUMMARY | 2025-07-03 16:34 | XMS_ITS | Encounter Summary ---
Author Organization [facility] Address [address] [place] [address] Care Team Providers Care Annealer Name Role Phone Luis Gilbert MD Primary Care Provider [phone] Encounter Details DateTypeDepartmentCare Team (Latest Contact Info)Oqjsiwybkzw23/20/2025amboo flowsheet [facility] [address] [place] [address] Abbe Altamirano DO [address] Bakari Neal, [facility] Social History Tobacco UseTypesPacks/DayYears UsedDateSmoking Tobacco: FormerCigarettes0.34 [...] have six or more drinks on one occasion?Never3PHQ-2AnswerDate Recorded Patient Health Questionnaire-2 Dsfxq857CommentsNoSex and Gender InformationValueDate RecordedSex Assigned at EohhgXemvlr81/19/2023 8:30 AM EDT Legal WfaUgkeea24/15/2023 8:11 PM EDTGender OlgdndgqJegjao46/19/2023 8:30 AM EDT Sexual EgijdlhfdclQbwmmjbs48/19/2023 8:30 AM EDTOccupationIndustryJob Start Date Job End DateCounselorNot on fileNot on fileNot on filedocumented as of this encounter Plan of Treatment DateTypeDepartmentCare Team (Latest Contact Info)Tzudwuybcrw68/31/2026 10:15 AM EDTOffice Visit [facility] [address] [place] [address] documented as of this encounter Visit Diagnoses Not on filedocumented in this encounter Care Teams Team MemberRelationshipSpecialtyStart DateEnd Date Luis Gilbert MD [address] [place] [phone] PCP - GeneralInternal Medicine02/20/23documented as of this encounter
[2025-07-08 11:09] LABS: Age Gdln ACOG Testing Note (.); IGP, Aptima HPV, rfx 16/18,45 Note (.)
== END 2025-07-03 16:31 | disposition home or self-care (01) ==
LOC: LAB 16:30
PROVIDERS: PCP Internal Medicine; Visit Provider Obstetrics & Gynecology
DX: Z01.419 Encounter for gynecological examination (general) (routine) without abnormal findings (principal)
CPT/HCPCS: 87624; 88175

== ENCOUNTER 2025-07-09 15:02 | Outpatient (OUT) | payer BC, SELFPAY ==
--- OUTSIDE RECORDS SUMMARY | 2025-07-03 10:00 | XMS_ITS | Encounter Summary ---
Author Organization [facility] Address [address] [place] [address] Care Team Providers Care Kids Club Attendant Name Role Phone Luis Gilbert MD Primary Care Provider [phone] Reason for Visit * ReasonCommentsGynecologic Exam Encounter Details DateTypeDepartmentCare Team (Latest Contact Info)Swuxuidedhg14/20/2025 10:00 AM ESTOffice Visit [facility] [address] [place] [address] Abbe Altamirano DO [address] [place] [address] Well woman exam with routine gynecological exam; [...] on one occasion?Never02/20/2023HQ-2AnswerDate Recorded Patient Health Questionnaire-2 [id number] and Gender InformationValueDate RecordedSex Assigned at WojbvMjvvrh13/19/2023 8:30 AM EDT Legal IpmUzjonr87/15/2023 8:11 PM EDTGender KfzaqzujDixnuf45/19/2023 8:30 AM EDT Sexual CwgqajcjgzeLeoxzvrc85/19/2023 8:30 AM EDTOccupationIndustryJob Start Date Job 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 female who presents for Gynecologic Exam Patient presents today for Annual Exam. MEDICATIONS Current Outpatient Medications Medication Instructions albuterol 2.5 mg, Every 6 hours PRN estrogens (conjugated) (PREMARIN) 0.3 mg, Oral, Daily, Take daily for 21 days then do not take for 7 days. Fluticasone-Salmeterol (Wixela Inhub) 250-50 MCG/ACT aerosol powder USE 1 INHALATION ORALLY TWICE DAILY ibuprofen 400 mg, 3 times daily PRN loratadine (CLARITIN) 10 mg, Daily PRN meloxicam (MOBIC) 15 mg, Oral, Daily PRN omeprazole (PRILOSEC) 20 mg, Oral, Daily before breakfast, Do not crush or chew. 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 Mixed incontinence 11/28/2018 Seasonal allergic rhinitis 08/09/2016 Sexual dysfunction 02/21/2023 Resolved Ambulatory Problems Diagnosis Date Noted Chronic constipation 02/27/2020 Dysmenorrhea 11/28/2018 Excessive and frequent menstruation 12/18/2018 Menopause 11/28/2018 Premenstrual tension syndrome 11/28/2018 Past Medical History: Diagnosis Date Bilateral fibrocystic breast changes Depression GERD (gastroesophageal reflux disease) Seasonal allergies STD (female) HISTORY PAST MEDICAL HISTORY SOCIAL HISTORY Past Medical History: Diagnosis Date Asthma (HCC) Bilateral fibrocystic breast changes Depression Dysmenorrhea GERD (gastroesophageal reflux disease) Mixed incontinence Seasonal allergies STD (female) Chlamydia, Herpes simplex virus (HSV) Social History Tobacco Use Smoking status: Former Current packs/day: 0.00 Average packs/day: 0.3 packs/day for 4.0 years (1.0 ttl pk-yrs) Types: Cigarettes Start date: 08/14/1987 Quit date: 08/14/1991 Years since quittin.9 Smokeless tobacco: Never Tobacco comments: Ex light [...] Grandmother Lore Beaver Hypertension Maternal Grandfather Jero Farrah Brain cancer Paternal Grandmother No Known Problems Daughter 2 Breast cancer Other Maternal Aunt SURGICAL HISTORY Past Surgical History: Procedure Laterality Date BREAST RECONSTRUCTION COLONOSCOPY 07/27/2022 normal ENDOMETRIAL ABLATION 01/10/2020 HYSTERECTOMY 06/22/2020 Hysterectomy/Bilateral Salpingectomy OTHER SURGICAL HISTORY Lymphectomy on neck (adolescent) TUBAL LIGATION 1997 REVIEW OF SYSTEMS Review of Systems: Review of Systems Constitutional: Negative. HENT: Negative. Eyes: Negative. Respiratory: Negative. Cardiovascular: Negative. Gastrointestinal: Negative. Genitourinary: Negative. Musculoskeletal: Negative. Skin: Negative. Neurological: Negative. All other systems reviewed and are negative. Hematological: Negative. Endocrine: Negative. Allergic/Immunologic: Negative. OBJECTIVE Objective: Physical Exam Constitutional: Appearance: Normal appearance. She is well-developed. Genitourinary: Vulva normal. Vaginal cuff intact. Cervix is absent. Uterus is absent. Breasts: Breasts are soft. Right: Normal. Left: Normal. Cardiovascular: Rate and Rhythm: Normal rate and regular rhythm. Abdominal: General: Bowel sounds are normal. There is no distension. Palpations: Abdomen is soft. Tenderness: There is no abdominal tenderness. There is no guarding or rebound. Musculoskeletal: General: No swelling. Normal range of motion. Right lower leg: No edema. Left lower leg: No edema. Neurological: Mental Status: She is alert and oriented to person, place, and time. Skin: General: Skin is warm and dry. Psychiatric: Mood and Affect: Mood normal. Behavior: Behavior normal. Vitals and nursing note reviewed. Exam conducted with a computer programming manager present. Vitals: Estimated body mass index is 27.81 kg/m?? as calculated from the following: Height as of 11/05/24: 5' 4 . Weight as of this encounter: 162 lb. BP: 114/70 No LMP recorded. Patient is postmenopausal. Assessment/Plan ICD-10-CM 1. Well woman exam with routine gynecological exam Z01.419 THIN PREP TIS PAP AND HR HPV DNA 2. Encounter for screening mammogram for malignant neoplasm of breast Z12.31 CANCELED: Bilateral screening mammogram CANCELED: Bilateral screening mammogram 3. Postmenopausal state Z78.0 DEXA bone density DEXA bone density 4. Mass of left breast, unspecified quadrant N63.20 Left diagnostic mammogram Assessment/Plan Annual: Patient presents today for an annual exam. Patient states she is doing well and has no complaints. Pap was obtained without difficulty and patient given mammogram and DEXA Scan orders to have scheduled/obtained. Orders Placed This Encounter Procedures DEXA bone density Left diagnostic mammogram Follow Up: Patient is to return in one year for annual unless needed otherwise. Documented by Kathy Geller LPN... on behalf of: Abbe Altamirano DO documented in this encounter Plan of Treatment DateTypeDepartmentCare Team (Latest Contact Info)Dejbrlcsajb61/31/2026 10:15 AM EDTOffice Visit [facility] [address] [place] [address] NameTypePriorityAssociated DiagnosesOrder ScheduleTHIN PREP TIS PAP AND [...] this encounter Care Teams Team MemberRelationshipSpecialtyStart DateEnd Date Luis Gilbert MD [address] [place] [address] PCP - GeneralInternal Medicine02/20/23documented as of this encounter
--- OUTSIDE RECORDS SUMMARY | 2025-07-09 15:04 | XMS_ITS | Encounter Summary ---
Author Organization [facility] Address [address] [place] [address] Care Team Providers Care Teaching Manager Name Role Phone Luis Gilbert MD Primary Care Provider [phone] Encounter Details DateTypeDepartmentCare Team (Latest Contact Info)Eviajoadxnu62/20/2025amboo flowsheet [facility] [address] [place] [address] Abbe Altamirano DO [address] Bakari Neal, [facility]11 Social History Tobacco UseTypesPacks/DayYears UsedDateSmoking Tobacco: FormerCigarettes0.34 [...] on one occasion?Never3PHQ-2AnswerDate Recorded Patient Health Questionnaire-2 Erxoe931CommentsNoSex and Gender InformationValueDate RecordedSex Assigned at IrpujNcgvsb23/19/2023 8:30 AM EDT Legal YfaEtmdnq43/15/2023 8:11 PM EDTGender MeynjimxNoopfl79/19/2023 8:30 AM EDT Sexual PihjvkehaoyXjqclygk57/19/2023 8:30 AM EDTOccupationIndustryJob Start Date Job End DateCounselorNot on fileNot on fileNot on filedocumented as of this encounter Plan of Treatment DateTypeDepartmentCare Team (Latest Contact Info)Ghmqzhvmmjb31/31/2026 10:15 AM EDTOffice Visit [facility] [address] [place] [address] documented as of this encounter Visit Diagnoses Not on filedocumented in this encounter Care Teams Team MemberRelationshipSpecialtyStart DateEnd Date Luis Gilbert MD [address] [place] [phone] PCP - GeneralInternal Medicine02/20/23documented as of this encounter
--- OUTSIDE RECORDS SUMMARY | 2025-07-09 15:04 | XMS_ITS | Clinical Summary ---
Author Organization [employer] tem Address [facility] [id number] [address] [place] [address] Care Team Providers Care Clam Grader Name Role Phone No Pcp, No Pcp [...] 10 tablet 04/08/2019Active Active Problems ProblemNoted DateDiagnosed AliyJsxpaf03/27/2016Herpes simplex virus (HSV) ohspakkxl69/27/2016Seasonal allergic xbtwuhhq77/27/2016 Resolved Problems ProblemNoted DateDiagnosed DateResolved DateAtopic njmgsmji33 Family History Medical HistoryRelationNameCommentsSchizophreniaBrotherDiabetesFatherBreast cancerMaternal AuntAunt Aruna on Maternal jwqo35NjmhkfgaLkuzasAjnoztpoJezd StatusCommentsBrotherFatherMaternal AuntAunt Aruna on Maternal sideMother Social History Tobacco UseTypesPacks/DayYears UsedDateSmoking Tobacco: FormerSmokeless Tobacco: NeverAlcohol UseStandard Drinks/WeekCommentsNo0 (1 standard drink = 0.6 oz pure alcohol)ChildcareAnswerDate KftefyidImuqpegfqCngtygt10/12/2019EmploymentAnswer Date HvksvxmbEksbarxewqBoaajdr88/12/2019Purpose - LifeAnswerDate RecordedPurpose and direction in vespVskwmzp66/11/2021CommentsNoSex and Gender InformationValueDate RecordedSex Assigned at SsdcuBhhazd70/22/2021 8:56 PM EST Legal LdpJyshuo71/06/2015 11:31 AM EDTGender XbegsovaEjrdtc45/22/2021 8:56 PM ESTSexual SorzdvhzfwaGvivsbtd23/22/2021 8:56 PM EST Last Filed Vital Signs Vital SignReadingTime TakenCommentsBlood Swhekcuc739/9210 3:29 PM EDT Pcikk7277/16/2017 8:30 AM ESTTemperature--Respiratory Rate--Oxygen Saturation-- Inhaled Oxygen Concentration--Oiavud89.7 kg (147 lb)05/25/2017 3:29 PM EDTHeight 160 cm (5' 3 )09/29/2016 8:30 AM ESTBody Mass Index26.04009/29/2016 8:30 AM EST Plan of Treatment Health MaintenanceDue DateLast DoneCommentsDepression Ddmctcdbp73/26/1985Tobacco Xjrkslpfh90/26/1985Adult BMI Cdslmcfkx06/26/1991DTaP,Tdap and Td Vaccines (1 - Tdap)1992Pap Smear09/29/Zoster (Shingles) Vaccine (1 of 2) 2023Influenza Ffjizyz8704/14/2025 Medical Devices Not on file Procedures Procedure [...] ? [facility] ? [address] [facility]. ? [place] [address] ? Gynecologic Cytology Consultation ? Patient Name: PATRICK YAN : 1975 (Age: 41) Gender: F Taken: 09/29/2016 Reported: 10/06/2016 Physician(s): Luis Valenzuela MD ([phone]) Copy To: ?? [facility]. Rec. #:[id number] Acct: # [id number] Final Cytologic Interpretation Cervical-Endocervical ThinPrep: Satisfactory for evaluation. A transformation zone component is present. NEGATIVE FOR INTRAEPITHELIAL LESION OR MALIGNANCY. ?? cjg/10/06/2016 Electronically Signed Out By ?ERICKA Murphy(ASCP) Date of Last Menstrual Period: ? 10/18/2016 Other Clinical Conditions: Screening/Routine z01.419 Housekeeper Cleaning Cooking exam wo/abn findings Source of Specimen Cervical-Endocervical ThinPrep ? Thin Prep Pap (INJECTION MOLDING MACHINE OFFBEARER) Fee Code(s): ?? G0145 The Pap test is a screening test with an inherent, but low, probability of error. The Pap test is primarily effective for the diagnosis and prevention of squamous cell carcinoma. Regular screening iscritical for prevention. ThinPrep liquid-based slides, which meet the Biofuels Production Manager criteria for automated screening, have been screened by the ThinPrep Imaging System (as of 04/30/07) along with an additional manual rescreening by a ferris wheel operator and, if indicated, by a pathologist.Luis Valenzuela MD 10/01/2016 Authorizing ProviderResult TypeResult StatusRobert Alexi Valenzuela MDPATHOLOGY/CYTOLOGY ORDERABLESFinal ResultPerforming OrganizationAddressCity/State/ZIP CodePhone Number COPATH from Last 3 Months or Most Recently Relevant to Health Maintenance Insurance Care Teams Team MemberRelationshipSpecialtyStart DateEnd Date No Pcp, No Pcp ALEJANDRO [place]im[place] [address] [facility]
--- OUTSIDE RECORDS SUMMARY | 2025-07-09 15:04 | XMS_ITS | Clinical Summary ---
Author Organization [facility] Address [address] [place] [address] Care Team Providers Care Painting Machine Operator Name Role Phone Luis Gilbert MD Primary Care Provider [phone] Allergies Active AllergyReactionsCriticalityNoted DateComments Sulfamethoxazole-Jvdoiefuvhri37/12/2025 Nausea and vomiting HcebygyrlamPyr69/10/2023 Other Reaction(s): muscle aches Medications MedicationSigDispense QuantityRefillsLast [...] not take for 7 days. 90 tablet 506Active meloxicam (Mobic) 15 MG tablet Indications:Chronic midline low back pain without sciaticaTake 1 tablet (15 mg) by mouth Daily as needed for moderate pain 30 tablet 5Active valACYclovir (Valtrex) 500 MG tablet Indications:Herpes simplex virus (HSV) infectionTake 1 tablet (500 mg) by mouth 2 (two) times a day as needed (cold sores) 14 tablet 5Active Active Problems ProblemNoted DateDiagnosed DateSexual urgcsfwsdly36/11/2023Inverse psoriasis 04/29/2019Fibrocystic breast xtwhtqo7911/28/2018Mixed votkgwrjbuff14/17/2019 Gastroesophageal reflux fxmwnyc7210/18/20188780Jppvrg10/27/2016Herpes simplex virus (HSV) nhdubdghc62/27/2016Seasonal allergic fpwwqrnu74/27/2016 Resolved Problems ProblemNoted DateDiagnosed DateResolved DateChronic mthadzjmowom47/16/2020 10/27/2023Excessive and frequent gzzpjnkbmrin89ysmenorrhea Menopause4Premenstrual tension syndrome Encounters DateTypeDepartmentCare OjifMnxluxlmmgc43/20/2025 10:00 AM ESTOffice Visit [facility] [address] [place] [address] [place] [phone] Abbe Altamirano DO Well woman exam with routine gynecological exam; Encounter for screening mammogram for malignant neoplasm of breast; Postmenopausal state; Mass of left breast, unspecified quadrant; Osteoporosis, post-menopausal; Screening for osteoporosis; Encounter for osteoporosis screening in asymptomatic postmenopausal patient 07/03/2025linisync Result Encounter [facility] External Department Unsolicited Abbe Altamirano DO 5Bamboo flowsheet [facility] [address] [facility] [place] [address] Abbe Altamirano DO from Last 3 Months [...] on one occasion?Never02/20/2023HQ-2AnswerDate Recorded Patient Health Questionnaire-2 Xtuyl516CommentsNoSex and Gender InformationValueDate RecordedSex Assigned at AmrsbRmrqzv13/19/2023 8:30 AM EDT Legal FthQzkgkn72/15/2023 8:11 PM EDTGender GvutiajoPfkrkn06/19/2023 8:30 AM EDT Sexual OajaunahgehWyaytdig72/19/2023 8:30 AM EDTOccupationIndustryJob Start Date Job End DateCounselorNot on fileNot on fileNot on file Last Filed Vital Signs Vital SignReadingTime TakenCommentsBlood Lnwfnija246/7007/03/2025 10:05 AM EST Rwjbm642311/05/2024 10:34 AM VBVNflxiknsjep25.5 ??C (97.7 ??F)07/17/2023 8:12 AM ESTRespiratory Rate--Oxygen Gcjgrmkjnp95%11/05/2024 10:34 AM EDTInhaled Oxygen Concentration--Wcsths27.5 kg (162 lb)07/03/2025 10:05 AM LAIVfasif689.6 cm (5' 4 )11/05/2024 10:34 AM EDTBody Mass Index27.8111/05/2024 10:34 AM EDT Plan of Treatment DateTypeDepartmentCare Team (Latest Contact Info)Qmipowondyu09/31/2026 10:15 AM EDTOffice Visit [facility] [address] [place] [address] Health MaintenanceDue DateLast DoneCommentsCT Wqqtfmqggzpr1973FIT-DNA 1973FIT1973FOBT1973 1855Eupzpqnuxewrt1973Pneumococcal Vaccine: Pediatrics (0 to 5 Years) and At-Risk Patients (6 to 64 Years) (1 of 2 - PCV)1992COVID-19 Vaccine (2 - season) Influenza Vaccine (#1)/03/20183897Ksfmzcckf18/23/202604/, 12/04/2024, 12/04/2023, Additional history existsPap Smear/06/2024, 07/01/2023ervical Cancer Ddjygvkbw99/18/2028HPV/Iltuit57 Ftumqqaamml57/14/294256/, 2Colorectal Cancer Pdkkviygo81/14/2032 Procedures Procedure NamePriorityDate/TimeAssociated DiagnosisCommentsIGP,APTIMA HPV,AGE GACBZtwlbpr13/20/2025 10:30 AM EST MAMMO 3D,BILATERAL SCREENING MAMMOGRAM WITH LZKGMNHrqmnfj61/23/2025 1:17 PM EDT PAP BTWIDWraqozx48/11/2024 12:00 AM ZTUJETMMQMDJJZAwupjno39/14/2022 12:00 PM EST THINPREP TIS PAP REFLEX HPV MRNA E6/E7 (65032)Tfwwjms5411/28/2018 from Last 3 Months or Most Recently Relevant to Health Maintenance Results * IGP,APTIMA HPV,AGE GDLN (07/03/2025 10:30 AM EST)ComponentValueRef RangeTest MethodAnalysis TimePerformed AtPathologist SignatureAGE GDLN ACOG TESTINGNote. TBHComment: ?? TESTS ? RESULT ??FLAG ??UNITS ?REF RANGE ??LAB ?? Clinician Provided Cytology Information ?? Source.............Vagina ?? No. of containers..01 ThinPrep Vial Age Algo ACOG Heavenly... ??30-65 ? 01 ?FLAG LEGEND: ?L-Low Normal,H-High Normal,LL-Alert Low,HH-Alert High <-Panic Low,>-Panic High,A-Abnormal,AA-Critical Abnormal Performed at: 01 =G ?[facility] ?? [address] [place], [place] ??[address] ?? Sintia Dahl MD, IGP, APTIMA HPV, RFX 16/18,45Note.TBHComment: ?? TESTS ? RESULT ??FLAG ??UNITS ?REF RANGE ??LAB DIAGNOSIS: ?02 ?? NEGATIVE FOR INTRAEPITHELIAL LESION OR MALIGNANCY. Specimen adequacy: ?02 ?? Satisfactory for evaluation. ??Endocervical and/or squamous metaplastic ?? cells (endocervical component) are present. Performed by: ? 02 ?? Abran Duarte, Facilities Mechanical Design Engineer (ASCP) . ? 02 Note: ? Note ?02 ?? The Pap smear is a screening test designed to aid in the ?? detection of premalignant and malignant conditions of the ?? uterine cervix. ??It is not a diagnostic procedure and ?? should not be used as the sole means of detecting cervical ?? cancer. ??Both false-positive and false-negative reports do ?? occur. Test Methodology: ? Note ?02 ?? This liquid based ThinPrep(R) pap test was interpreted ?? using the [employer](R) Bioregencyius(TM) Cervical Algorithm whole ?? slide imaging system. HPV Genotype Reflex ?? Note ?02 ?? Criteria not met, HPV Genotype not performed. ?FLAG LEGEND: ?L-Low Normal,H-High Normal,LL-Alert Low,HH-Alert High <-Panic Low,>-Panic High,A-Abnormal,AA-Critical Abnormal Performed at: 02 WB ?[facility] ?? [address] [place] ??[address] ?? Sintia Dahl MD, HPV APTIMANegativeNegativeTBHComment: This nucleic acid amplification test detects fourteen high- risk HPV types (16,18,31,33,35,39,45,51,52,56,58,59,66,68) without differentiation. Performed at: ??=G - [facility] ??[id number] Car Electronics Installer: Sintia Dahl MD, Phone: ??[phone] Performed at: ?? - [facility] ??[id number] Car Electronics Installer: Sintia Dahl MD, Phone: ??[phone] Specimen (Source)Anatomical Location / LateralityCollection Method / Volume Collection TimeReceived Time07/03/2025 10:30 AM EST07/03/2025 4:31 PM EST Narrative CLIN[facility] - 07/08/2025 11:09 AM EST SPATULA-ALONE VAGINA Authorizing ProviderResult TypeResult StatusCorey Evelia DOLAB BLOOD ORDERABLES Final ResultPerforming OrganizationAddressCity/State/ZIP CodePhone Number [facility]INCLEVEL[facility] * MAMMO 3D,BILATERAL SCREENING MAMMOGRAM WITH TOMOSY [...] Narrative 07/27/2022 12:00 PM EST PERFORMED AT [facility] LOCATION:[id number] normal Procedure Note CONVERSION, GENERIC - 12/28/2022 PERFORMED AT [facility] LOCATION:[id number] normal Authorizing ProviderResult TypeResult StatusRobgraeme Gilbert MDENDOSCOPY PROCEDURE ORDERABLESFinal Result * THINPREP TIS PAP REFLEX HPV MRNA E6/E7 (35924) (11/28/2018)ComponentValueRef RangeTest MethodAnalysis TimePerformed AtPathologist SignatureCLINICAL INFORMATION:None givenNOMS LEGACY EXTERNAL LABLMP:11/25/18[facility] LEGACY EXTERNAL LABPREV. PAP:2 YEARSNOMS LEGACY EXTERNAL LABPREV. BX:[facility]GAC[facility] EXTER[facility] LABSOURCE:Cervix, EndocervixNOMS LEGACY EXTERNAL LABSTATEMENT OF ADEQUACY:SEE COMMENTNOPA LEGACY EXTERNAL LABComment: Satisfactory for evaluation. Endocervical/transformation zone component present. INTERPRETATION/RESULT:Negative for intraepithelial lesion or malignancy.[facility] EXTERNAL LABCOMMENT:This Pap test has been evaluated with computer assisted technology.[facility] EXTERNAL LABCYTOTECHNOLOGIST:SEE COMMENTNOPA LEGACY EXTERNAL LABComment: BGG, SCT(ASCP) CT screening location: [place] [address]. COMMENTSEE COMMENTNOPA LEGACY EXTERNAL LABComment: EXPLANATORY NOTE: The Pap [...] Maintenance Insurance Care Teams Team MemberRelationshipSpecialtyStart DateEnd Luis Gilbert MD [address] [place] [phone] PCP - GeneralInternal Medicine02/20/23
--- OUTSIDE RECORDS SUMMARY | 2025-07-09 15:04 | XMS_ITS | Encounter Summary ---
Author Organization [facility] Address [address] [place] [address] Care Team Providers Care Spot Welder Name Role Phone Luis Gilbert MD Primary Care Provider [phone] Encounter Details DateTypeDepartmentCare Team (Latest Contact Info)Ailxpntqdgh34/20/2025Clinisync Result Encounter [facility] External Department Unsolicited Abbe Altamirano, DO [address] [place] [place], [place] [id number] Social History Tobacco UseTypesPacks/DayYears UsedDateSmoking Tobacco: FormerCigarettes0.34 [...] on one occasion?Never02/20/2023HQ-2AnswerDate Recorded Patient Health Questionnaire-2 Tqijo304/25/2025CommentsNoSex and Gender InformationValueDate RecordedSex Assigned at BzeltQfixip99/19/2023 8:30 AM EDT Legal ApcMfgoqn35/15/2023 8:11 PM EDTGender DqjuafnnPjymmk92/19/2023 8:30 AM EDT Sexual JddydlblfwkHkermdos91/19/2023 8:30 AM EDTOccupationIndustryJob Start Date 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 [address] [place] ??[phone] ?? Sintia Dahl MD, IGP, APTIMA HPV, RFX 16/18,45Note.TBHComment: ?? TESTS ? RESULT ??FLAG ??UNITS ?REF RANGE ??LAB DIAGNOSIS: ?02 ?? NEGATIVE FOR INTRAEPITHELIAL LESION OR MALIGNANCY. Specimen adequacy: ?02 ?? Satisfactory for evaluation. ??Endocervical and/or squamous metaplastic ?? cells (endocervical component) are present. Performed by: ? 02 ?? Abran Duarte, Attic Fans Mechanic (ASCP) . ? 02 Note: ? Note [...] pap test was interpreted ?? using the [employer](R) Genius(TM) Cervical Algorithm whole ?? slide imaging system. HPV Genotype Reflex ?? Note ?02 ?? Criteria not met, HPV Genotype not performed. ?FLAG LEGEND: ?L-Low Normal,H-High Normal,LL-Alert Low,HH-Alert High <-Panic Low,>-Panic High,A-Abnormal,AA-Critical Abnormal Performed at: [address] ?[facility] ?? [address] [facility], [place] ??[address] ?? Sintia Dahl MD, HPV APTIMANegativeNegativeTBHComment: This nucleic acid amplification test detects fourteen high- risk HPV types (16,18,31,33,35,39,45,51,52,56,58,59,66,68) without differentiation. Performed at: ??=G - [facility] [address] ??[id number] Cloth Printer Helper: Sintia Dahl MD, Phone: ??[phone] Performed at: ??WB - [facility] ??[id number] Cloth Printer Helper: Sintia Dahl MD, Phone: ??[phone] Specimen (Source)Anatomical Location / LateralityCollection Method / Volume Collection TimeReceived Time07/03/2025 10:30 AM EST07/03/2025 4:31 PM EST Narrative [facility] - 07/08/2025 11:09 AM EST SPATULA-ALONE VAGINA Authorizing ProviderResult TypeResult StatusCorey Evelia DOLAB BLOOD ORDERABLES Final ResultPerforming OrganizationAddressCity/State/ZIP CodePhone Number [facility] documented in this encounter Visit Diagnoses Not on filedocumented in this encounter Care Teams Team MemberRelationshipSpecialtyStart DateEnd Date Luis Gilbert MD [address] [place] [address] PCP - GeneralInternal Medicine02/20/23documented as of this encounter
--- OUTSIDE RECORDS SUMMARY | 2025-07-09 15:04 | XMS_ITS | Clinical Summary ---
Author Organization [facility] Address [address] [facility] [place] [address] Care Team Providers Care Bladder Trimmer Name Role Phone Salva Helms APRN-LANA Unavailable [phone] Source Comments The following information is NOT included in Care Everywhere downloads:Psychiatric notes, ECG results, Cardiac Rehab notes, Pulmonary Function notes, data from [employer] (includes but not limited toPregnancy data,audiograms, eye exams, pre-surgical evaluation notes, well-child exam data).[facility] Immunizations ImmunizationAdministration DatesNext DueInfluenza, injectable, quadrivalent, preservative (JEQ=959)05/21/2018 Social History Tobacco UseTypesPacks/DayYears UsedDateSmoking Tobacco: Never [...] relatives?Once a week09/07/2023How often do you attend moravian or rastafari services?More than 4 times per year09/07/2023o you belong to any clubs or organizations such as moravian groups, unions, fraternal or athletic groups, or [...] housing, medical care, and heating?Not hard at all09/07/2023[facility] [place] of Occupational Health - Occupational Stress QuestionnaireAnswerDate [...] BS)09/07/2023CommentsUnknownSex and Gender InformationValueDate RecordedSex Assigned at QxnwwUumxli50/02/2024 10:30 AM ESTLegal SexFemale 08/03/2023 10:44 AM ESTGender WxdvjwpzSxnutg12/02/2024 10:30 AM ESTSexual OrientationNot on file Plan of Treatment Health MaintenanceDue DateLast LlubYiksztvkJjtwjwazdcw1973HIV Test 1988Hepatitis C Pajvnptu34/26/1991Tdap Nqvehcn0103/08/1991Hepatitis A (HAV) Vaccine (optional start 19+ years)1992Hepatitis B (HBV) Vaccine (1 of 3 - 19+ 3-dose series)1992Pap Smear1994CRC Wxmklskwt89/26/2018Cologuard (Stool DNA)2018FIT2018Pneumococcal Vaccine(s) (50+ yrs) (1 of 1 - PCV)2023Shingles (RZV) Vaccine (1 of 2)03/08/20239605Wlctozbqlkk34/18/2024 12/29/2022, 06/15/2022, 11/12/2021, Additional history existsCOVID-19 Vaccine (2 - 2024- season)5010/19/2020Influenza Vaccine (#1)/03/2018 Qsulpzpcnxb44 Insurance Care Teams Team MemberRelationshipSpecialtyStart DateEnd Date Slava Helms, CLERK CASHIER-BALANCE WHEEL SCREW HOLE TAPPER [address] [place] [id number] APNPlastic Surgery10/14/23
--- OUTSIDE RECORDS SUMMARY | 2025-07-09 15:14 | XMS_ITS | CCD ---
Author Organization [facility] Care Team Providers Care Bluing Oven Tender Name Role Phone TARA, DR ALFONSO Admitting [...] Care Unavailable HILL, DR ADAN Admitting Unavailable SUZETTE, DR KENDALL Branch Consulting Unavailable PETER, DR ADAN Attending Unavailable PETER, DR ADAN Consulting Unavailable NILL, DR ALFONSO Admitting Unavailable EVELIA, DR URIBE Primary Care Unavailable NILL, DR ALFONSO Attending Unavailable NILL, DR ALFONSO Consulting Unavailable NILL, Naty Solitario Attending Unavailable NILL, Naty Solitario Attending Unavailable Unavailable Primary Care Provider Unavailabl e PROVIDER, UNKNOWN Attending Unavailable PROVIDER, UNKNOWN Admitting Unavailable MD Manuel Willoughby Attending Provider MD Loco Green Primary Care Provider Loco Green MD Unavailable Loco Green MD Primary Care Provider Loco Green MD Primary Care Provider [phone] Loco Green MD Attending Provider [phone] Loco Green Primary Care Unavailable Manuel Willoughby Admitting Unavailable Manuel Willoughby Attending Unavailable Loco Green Admitting Unavailable Loco Green Primary Care Unavailable Looc Green Attending Unavailable Loco Green Primary Care Unavailable Manuel Willoughby Admrui Unavailable Manuel Willoughby Attending Unavailable Loco Green MD Primary Care Provider Loco Green MD Attending Provider [phone] LOCO GREEN Attending Unavailable ABBE ALTAMIRANO Attending Unavailable ABBE ALTAMIRANO Attending Unavailable Loco Green MD Unavailable Loco Green MD Primary Care Provider [facility] Slava RiveraPaul Unavailable Allergies Allergy ClassificationReported Allergen(s)Allergy TypeDate of OnsetReaction(s) Facility (1 source)No Known Medication Allergies; Translations: [No Known Medication Allergies]Propensity to adverse reactions (disorder)[facility] (12 sources)montelukastDrug Aumiwyr33-41-3624[facility] (5 sources)Sulfamethoxazole / TrimethoprimDrug Ykcoipz03-55-2127[facility] Medications Current Medications MedicationDrug Class(es)DatesSig (Normalized)Sig (Original)albuterol 0.83 mg/ml inhalation solution (10 sources)beta2-Adrenergic Agonistalbuterol (2.5 MG/3ML) 0.083% nebulizer solution Take 2.5 mg by nebulization every 6 (six) hours ifneeded for wheezing Activeestrogens, conjugated (retirement) 0.3 mg oral tablet (8 sources)EstrogenStart: 03-18-2024 End: 08-38-4771vcff 1 tablet by mouth once dailyestrogens, conjugated, (Premarin) 0.3 MG tablet Indications: Hormone imbalance Take 1 tablet (0.3 mg) by mouth Daily Take daily for 21 days then do not take for 7 days. 90 tablet 3 11/11/2024 11/06/2025 ActiveFluticasone Propion-Salmeterol (11 sources)Corticosteroid, beta2-Adrenergic AgonistStart: 81-75-6358Tldlaqxyeyu Propion-Salmeterol (Wixela Inhub) 100-50 mcg/dose blister with device Active 1 INH INHALATION Twice daily October 21, 2024 12:00amStart: 83-43-4362Qyyhjdzlpgj- Salmeterol (Wixela Inhub) 250-50 MCG/ACT aerosol powder Indications: Mild intermittent asthma without complication (HCC) USE 1 INHALATION ORALLY TWICE DAILY 180 each 3 11/17/2023 Activeibuprofen 800 mg oral tablet (10 sources)Nonsteroidal Anti-inflammatory Drugibuprofen 800 MG tablet Take 400 mg by mouth 3 (three) times a day as needed for mild pain Activeloratadine 10 mg oral tablet (10 sources)take 1 tablet by mouth every twenty-four hours as neededloratadine (Claritin) 10 MG tablet Take 10 mg by mouth Daily as needed for allergies Active meloxicam 15 mg oral tablet (1 source)Nonsteroidal Anti-inflammatory DrugStart: 25-42-2356sgbc 1 tablet by mouth once daily as needed for painmeloxicam (Mobic) 15 MG tablet Indications: Chronic midline low back pain without sciatica Take 1 tablet (15 mg) by mouth Daily as needed for moderate pain 30 tablet 5 11/26/2024 Active methylPREDNISolone 4 mg oral tablet (1 source)CorticosteroidStart: 73-63-2236tyjv 1 tablet by mouth once Methylprednisolone (Medrol (Go)) 4 mg tablets,dose pack Active 0 PO per package directions October 21, 2024 12:00am PO PER PKG DIRomeprazole 20 mg delayed release oral capsule (19 sources)Proton Pump InhibitorStart: 58-15-4672srbp 1 capsule by mouth before mealtimeomeprazole (PriLOSEC) [address] capsule Indications: Gastroesophageal reflux disease without esophagitis Take 1 capsule (20 mg) by mouth in the morning. Take before meals. Do not crush or chew.. 90 capsule 2 09/02/2024 Active End: 73-22-3906jrwc 1 capsule by mouth every twenty-four hours as needed omeprazole (PriLOSEC) [address] capsule Take 40 mg by mouth Daily as needed Do not crush or chew. 06/24/2024 Discontinuedpsyllium 3400 mg powder for oral suspension (10 sources)take 3 g by mouth once daily as neededpsyllium (Metamucil) 58.6 % powder Take 3 g of fiber by mouth Daily as needed ActivevalACYclovir 500 mg oral tablet (13 sources)Herpesvirus Nucleoside Analog DNA Polymerase Inhibitor, Herpes Simplex Virus Nucleoside Analog DNA Polymerase Inhibitor, Herpes Zoster Virus Nucleoside Analog DNA Polymerase InhibitorStart: 01-18-2024 End: 93-14-2898qhqb 1 tablet by mouth twice daily as neededvalACYclovir (Valtrex) 500 MG tablet Indications: Herpes simplex virus (HSV) infection Take 1 tablet (500 mg) by mouth 2 (two) times a day as needed (cold sores) 14 tablet 5 04/09/2024 Active Completed/Discontinued Medications MedicationDrug Class(es)DatesSig (Normalized)Sig (Original)acetaminophen 325 mg / HYDROcodone bitartrate 5 mg oral tablet (3 sources)Opioid AgonistStart: 02-01-2024 End: 66-35-3072emvy 2 tablets by mouth every six hours as needed for pain Hydrocodone-Acetaminophen 5-325 mg tablet Discontinued 2 TAB PO Q6H as needed for pain 12 03February 01, 2024 October 21, 2024 9:47amgabapentin 300 mg oral capsule (3 sources)Anti-epileptic AgentStart: 02-01-2024 End: 56-29-3308xqoe 1 capsule by mouth three times dailyGabapentin 300 mg capsule Discontinued 300 MG PO Three times daily 12 06February 01, 2024 12:00am October 21, 2024 9:47am Problems Active Problems Problem ClassificationProblemDateDocumented DateEpisodic/ChronicAnxiety disorders (7 sources)Generalized anxiety disorder; Translations: [Generalized anxiety disorder]Onset: 539223-42-6287IaejdszHklirt (14 sources)Unspecified asthma, uncomplicated; Translations: [Asthma]Onset: 240105-85-2010UygbmypBvxrfsgvkk disorders (14 sources)Gastro-esophageal reflux disease without esophagitis; Translations: [Gastroesophageal reflux disease]Onset: 986486-27-5539HfclryxXiongotcyygbt symptoms and ill-defined conditions (12 sources)Incontinence; Translations: [Mixed incontinence]Onset: 11-28-2018 45-41-3599AokzkkxCtruxuumqkdve symptoms and ill-defined conditions (1 source)Frequency of micturition; Translations: [Frequency of micturition] Onset: 79-56-0558VxbihmfmVfyuwnpozacdx and screening for infectious disease (1 source)Encounter for screening for human papillomavirus (HPV); Translations: [ENC SCREENING HUMAN PAPILLOMAVIRUS]Onset: 06-44-0146GugzvmuwDewudvxegrxr breast conditions (12 sources)Fibrocystic disease of breast; Translations: [Diffuse cystic mastopathy of unspecified breast]Onset: 086958-61-3296QtilcvxIunzcnidowfk breast conditions (4 sources)Large breast; Translations: [Hypertrophy of breast]Onset: 02-01-2024 69-37-1405RyuilbrjXsnfv female genital disorders (2 sources)Pruritus of vagina; Translations: [Other specified noninflammatory disorders of vagina]59-51-9588ToinfcxnRdlqt inflammatory condition of skin (12 sources)Seborrheic psoriasis; Translations: [Other psoriasis]Onset: 422219-55-0131JexzdlvXljck screening for suspected conditions (not mental disorders or infectious disease) (14 sources)Encounter for screening for malignant neoplasm of colon; Translations: [Encounter for screening formalignant neoplasm of cervix]Onset: 52-63-6128ZqzjtutmQgwyw upper respiratory disease (12 sources)Seasonal allergic rhinitis; Translations: [Other seasonal allergic rhinitis]Onset: 102177-84-8009MxhgmrnUwuxrllw codes; unclassified (1 source)Acquired absence of both cervix and uterus; Translations: [ACQUIRED ABSENCE BOTH CERVIX AND UTERUS]Onset: 82-89-3068ReigpensSmtlrkiy codes; unclassified (1 source)Did not attend; Translations: [No-show for appointment]09-13-2023 EpisodicResidual codes; unclassified (2 sources)Postmenopausal state; Translations: [Asymptomatic menopausal state] 40-55-4388KetvzgexCexofujwb and history of mental health and substance abuse codes (1 source)Personal history of nicotine dependence; Translations: [PERSONAL HISTORY OF NICOTINE DEPEND]Onset: 81-54-6482BytwurrqBsvwfijrgzg; intervertebral disc disorders; other back problems (1 source)Lumbago with sciatica, right side; Translations: [Lumbago with sciatica, right side]Onset: 80-81-4160AiazpcyoMrzmmdcuungu (1 source)CONTACT W/AND (SUSP) EXPOS COVID-19; Translations: [CONTACT W/AND (SUSP) EXPOS COVID-19]Onset: 97-24-5732Wjmfmbybsadc (1 source)Patient's noncompliance with other medical treatment and regimen due to unspecified reason; Translations: [Patient's noncompliance with other medical treatment and regimen due to unspecified reason]Onset: 09-13-2023 Past or Other Problems Problem ClassificationProblemDateDocumented DateEpisodic/ChronicMenstrual disorders (20 sources)Dysmenorrhea; Translations: [Dysmenorrhea, unspecified]Onset: 11-28-2018 Resolved: 829204-81-9966TslrxadAzsjasgbaebel mental health disorders (12 sources)Abnormal sexual function; Translations: [Sexual dysfunction, unspecified]Onset: 506465-07-4906VrecvoupZucsz female genital disorders (12 sources)Premenstrual tension syndrome; Translations: [Premenstrual tension syndrome]Onset: 11-28-2018 Resolved: 880622-92-2961SfbuoxuWnofc gastrointestinal disorders (12 sources)Chronic constipation; Translations: [Other constipation]Onset: 02-27-2020 Resolved: 734688-18-5118DbzupzueXaioosyd codes; unclassified (1 source)Family history of malignant neoplasm of breast; Translations: [FAMILY HX MALIG NEOPLASM OF BREAST]Onset: 60-11-1845RoedyuueSzdrtqdj codes; unclassified (1 source)Family history of malignant neoplasm of other organs or systems; Translations: [FAM HX MALIG NEOPLASM OTH ORGN/SYS]Onset: 36-13-4075Cmwjakho Residual codes; unclassified (12 sources)Menopause present; Translations: [Asymptomatic menopausal state] Onset: 11-28-2018 Resolved: 160471-17-3155PlhbirtbRbkrk infection (12 sources)Herpes simplex; Translations: [Herpesviral infection, unspecified] Onset: 865853-08-4252Zqpwqsfh Results Test NameValueInterpretationReference RangeFacilityMM TOMOSYNTHESIS SCREENING BI on 38[place]87[place] [address] Mammography Report Signed Patient: HENRIETTA RIVERA MR#: [id number] : 1975 Acct:[id number] Age/Sex: 49 / F ADM Date: 12/04/24 Loc: MAMMO Attending Dr: Abbe Altamirano D.O. Ordering Physician: Abbe Altamirano D.O. Results: Date of Service: 12/04/24 Follow Up: Procedure(s): MM tomosynthesis screening BI Accession Number(s): [id number] cc: Abbe Altamirano D.O.; LOCO GREEN Patient Name: HENRIETTA RIVERA MR#: [id number] : 1975 Exam Date: 12/04/2024 Ordering Doctor: DR Abbe Altamirano . RADIOLOGY REPORT PROCEDURE: MM TOMOSYNTHESIS SCREENING BI COMPARISON: MM TOMOSYNTHESIS SCREENING BI, 12/01/2023. MG MAMM SCREEN 3D JOE CAD, 12/29/2022. MG MAMM SCREEN 3D JOE CAD, 11/12/2021. MG MAMM SCREEN JOE W CAD, 12/11/2018. INDICATIONS: Screening for malignant neoplasm Calculator Name NCI Breast Cancer Risk Assessment Tool 5 Year Breast Cancer Risk 1.70% Lifetime Breast Cancer Risk 14.50% Personal Breast Cancer No Personal Ovarian Cancer No Treatments None Family Cancers Sister with breast cancer at age 50; Aunt-maternal with breast cancer at age 52; Grandmother-maternal with brain cancer at age 60. LOCATION: [facility] BREAST COMPOSITION: The breasts are heterogeneously dense,which may obscure small masses. FINDINGS: RIGHT BREAST: No significant suspicious finding. Breast reduction surgery LEFT BREAST: No significant suspicious finding. Breast reduction surgery DIAGNOSTIC CATEGORY 1--NEGATIVE. RECOMMENDATIONS: ROUTINE MAMMOGRAM AND CLINICAL EVALUATION IN 12 MONTHS. PLEASE NOTE: A NORMAL MAMMOGRAM DOES NOT EXCLUDE THE POSSIBILITY OF BREAST CANCER. A CLINICALLY SUSPICIOUS PALPABLE LUMP SHOULD BE BIOPSIED. Dictated by: Guido Larios DO on 12/04/2024 at 08:38 Approved by: Guido Larios DO on 12/04/2024 at 08:40 Dictated By: Guido Larios D.O. Signed By: 12/04/24 0841 DD/ 0840 TD/TT: Sales And Service Officer:TBHRadiology, Radiologist, - 12/04/2024 [place] [address] Mammography Report Signed Patient: HENRIETTA RIVERA MR#: [id number] : 1975 Acct:[id number] Age/Sex: 49 / F ADM Date: 12/04/24 Loc: MAMMO Attending Dr: Abbe Altamirano D.O. Ordering Physician: Abbe Altamirano D.O. Results: Date of Service: 12/04/24 Follow Up: Procedure(s): MM tomosynthesis screening BI Accession Number(s): [id number] cc: Abbe Altamirano D.O.; PETERLOCO Patient Name: HENRIETTA RIVERA MR#: [id number] : 1975 Exam Date: 12/04/2024 Ordering Doctor: DR Abbe Altamirano . RADIOLOGY REPORT PROCEDURE: MM TOMOSYNTHESIS SCREENING BI COMPARISON: MM TOMOSYNTHESIS SCREENING BI, 12/01/2023. MG MAMM SCREEN 3D JOE CAD, 12/29/2022. MG MAMM SCREEN 3D JOE CAD, 11/12/2021. MG MAMM SCREEN JOE W CAD, 12/11/2018. INDICATIONS: Screening for malignant neoplasm Calculator Name NCI Breast Cancer Risk Assessment Tool 5 Year Breast Cancer Risk 1.70% Lifetime Breast Cancer Risk 14.50% Personal Breast Cancer No Personal Ovarian Cancer No Treatments None Family Cancers Sister with breast cancer at age 50; Aunt-maternal with breast cancer at age 52; Grandmother-maternal with brain cancer at age 60. LOCATION: [facility] BREAST COMPOSITION: The breasts are heterogeneously dense,which may obscure small masses. FINDINGS: RIGHT BREAST: No significant suspicious finding. Breast reduction surgery LEFT BREAST: No significant suspicious finding. Breast reduction surgery DIAGNOSTIC CATEGORY 1--NEGATIVE. RECOMMENDATIONS: ROUTINE MAMMOGRAM AND CLINICAL EVALUATION IN 12 MONTHS. PLEASE NOTE: A NORMAL MAMMOGRAM DOES NOT EXCLUDE THE POSSIBILITY OF BREAST CANCER. A CLINICALLY SUSPICIOUS PALPABLE LUMP SHOULD BE BIOPSIED. Dictated by: Guido Larios DO on 12/04/2024 at 08:38 Approved by: Guido Larios DO on 12/04/2024 at 08:40 Dictated By: Guido Larios D.O. Signed By: 12/04/24 0841 DD/ 0840 TD/TT: Sales And Service Officer: ELISHA HealthcareRadiology Study observation (narrative)[facility] TOMOSYNTHESIS SCREENING BIOrdered By: Radiologist Radiology on 87-03-1142ZNWIHermann Area District Hospital Work Phone: bacteria identified Cx Nom (U)on 76-10-0680TNBEHermann Area District HospitalNo Panel Informationon 03-37-5915Flcsslzmu at: - [facility] [address] [id number] Director Hris: Hossein Navarro PhD, Phone: [phone] HealthcareUr Microscopic Reflexon 85-92-3476Mmxurecz LM.HPF (Urine sed) [#/Area]None seenNone seen/FewNOMS HealthcareCasts LM Ql (Urine sed)None seenNone seen /lpfNOMS HealthcareEpithelial cells LM.HPF (Urine sed) [#/Area]0-10NOMS HealthcareRBC LM.HPF (Urine sed) [#/Area]None seenNOMS HealthcareWBC LM.HPF (Urine sed) [#/Area]None seenNOMS HealthcareUrinalysis complete panel (U)on 11-07-2024 Appearance (U)ClearClearNOMS HealthcareBilirubin Ql (U)NegativeNegativeNOMS HealthcareColor (U)YellowYellowNOMS HealthcareGlucose Ql (U)NegativeNegativeNOMS HealthcareHemoglobin Ql (U)NegativeNegativeNOMS HealthcareKetones Ql (U) NegativeNegativeNOMS HealthcareLeukocyte esterase Test strip Ql (U)Negative NegativeNOMS HealthcareMicroscopic observation LM Nom (Urine sed)CommentNOMS HealthcareComment on above:Microscopic follows if indicated.Microscopic observation LM Nom (Urine sed)See below:NOMS HealthcareComment on above: Microscopic was indicated and was performed.Nitrite Ql (U)NegativeNegativeNOMS HealthcarepH (U)6.5 [pH]5.0 - 7.5NOMS HealthcareProtein Ql (U)Negative Negative/TraceNOMS HealthcareSpecific gravity (U) [Rel density]1.0111.005 - 1.030NOMS HealthcareUrobilinogen (U) [Mass/Vol]0.2 mg/dL0.2 - 1.0 mg/dLNOMS HealthcareUrine Culture Clean Catch Reflexon 72-89-2807Cyhsekvp identified Cx Nom (U)No growthNOMS HealthcareUrine cultureon 51-88-4447Pcadilha identified Cx Nom (U)Final reportNOMS HealthcareAppearance of UrineOrdered By: Loco Green on 47-30-3903Keubmqnkiy (U)Urine appearanceCleWyandot Memorial Hospital Bacteria [Presence] in Urine by AutomatedOrdered By: Loco Green on 09-24-2024 Bacteria Auto Ql (U)Bacteria [Presence] in Urine by AutomatedNone SeenMercy Health Anderson HospitalBilirubin Test strip Ql (U)Ordered By: Loco Green on 17-89-9464Xgzmougda Ql (U)Bilirubin.total [Presence] in Urine by Test strip NegativeMercy Health Anderson HospitalColor Auto (U)Ordered By: Loco Green on 33-70-8707Bucfw (U)Color of Urine by AutoYellowMercy Health Anderson HospitalDipstick and Microscopicon 17-39-8934Nkgqighkdi (U)ClearNormalClearThe [facility] Physician GroupComment on above:Order Comment: Name Collection Type:: Clean-Voided MidstreamPerformed By: #### ADDONUAPLUS #### [facility] [address] [place] [address] USABacteria,UrineNone SeenNormalNone SeenHca Florida Starke Emergency Physician GroupComment on above:Order Comment: Name Collection Type:: Clean- Voided MidstreamPerformed By: #### ADDONUAPLUS #### [facility] [address] [place] [address] USABilirubin,UrineNegativeNormalNegativeHca Florida Starke Emergency Physician GroupComment on above:Order Comment: Name Collection Type:: Clean- Voided MidstreamPerformed By: #### ADDONUAPLUS #### [facility] [address] [place] [address] USAColor (U)Light-YellowNormalYellowHca Florida Starke Emergency Physician GroupComment on above:Order Comment: Name Collection Type:: Clean-Voided MidstreamPerformed By: #### ADDONUAPLUS #### [facility] [address] [place] [address] USAGlucose Ql (U)NormalNormalNormalThSt. Mary's Hospital Physician GroupComment on above:Order Comment: Name Collection Type:: Clean-Voided MidstreamPerformed By: #### ADDONUAPLUS #### [facility] [address] [place] [address] USAHyaline Casts,UrineNoneNormal0-8The [facility] Physician GroupComment on above:Order Comment: Name Collection Type:: Clean-Voided MidstreamPerformed By: #### ADDONUAPLUS #### [place] [address] USAKetones Ql (U)NegativeNormalNegativeThe [facility] Physician GroupComment on above:Order Comment: Name Collection Type:: Clean- Voided MidstreamPerformed By: #### ADDONUAPLUS #### [place] [address] USALeukocyte esterase Test strip Ql (U)NegativeNormalNegative The [facility] Physician GroupComment on above:Order Comment: Name Collection Type:: Clean-Voided MidstreamPerformed By: #### ADDONUAPLUS #### [place] [address] USAMucus,UrineRareNormalThe [facility] Physician GroupComment on above:Order Comment: Name Collection Type:: Clean-Voided MidstreamResult Comment: PERFORMED BY: [place] [address] PATHOLOGIST WRONG ADDRESS CLERK JINA TOWNSEND M.D.Performed By: #### ADDONUAPLUS #### [place] [address] USANitrite,UrineNegativeNormalNegativeThe [facility] Physician GroupComment on above:Order Comment: Name Collection Type:: Clean-Voided MidstreamPerformed By: #### ADDONUAPLUS #### [place] [address] USAOccult Blood,UrineTraceHighNegativeThe [facility] Physician GroupComment on above:Order Comment: Name Collection Type:: Clean-Voided MidstreamPerformed By: #### ADDONUAPLUS #### [place] [address] USApH (U)5.0 [pH]Normal5.0-9.0The [facility] Comment on above:Order Comment: Name Collection Type:: Clean-Voided Midstream Performed By: #### ADDONUAPLUS #### [place] [address] USAProtein,UrineNegativeNormalNegativeThe [facility] Physician GroupComment on above:Order Comment: Name Collection Type:: Clean-Voided MidstreamPerformed By: #### ADDONUAPLUS #### [place] [address] USARBC,Oldhc7-0Uiklhi7-6Gbx [facility] Physician GroupComment on above:Order Comment: Name Collection Type:: Clean-Voided MidstreamPerformed By: #### ADDONUAPLUS #### [place] [address] USASpecificy Woodruff,Urine1.351Byiwcd5.001-1.030The [facility] Physician GroupComment on above:Order Comment: Name Collection Type:: Clean- Voided MidstreamPerformed By: #### ADDONUAPLUS #### [place] [address] USASquamous Epithelial Cell,Thwop3-7Oara0-5Bhe [facility] Physician GroupComment on above:Order Comment: Name Collection Type:: Clean- Voided MidstreamPerformed By: #### ADDONUAPLUS #### [place] [address] USAUrobilinogen,UrineNormalNormalNormalThe [facility] Physician GroupComment on above:Order Comment: Name Collection Type:: Clean- Voided MidstreamPerformed By: #### ADDONUAPLUS #### [place] [address] USAWBC,Dovha0-1Bntnfx2-1Ghr [facility] Physician GroupComment on above:Order Comment: Name Collection Type:: Clean-Voided MidstreamPerformed By: #### ADDONUAPLUS #### [place] [address] USAEpithelial cells.squamous [#/area] in Urine sediment by Automated countOrdered By: Loco Green on 87-09-3297Gaadmmiptr cells.squamous Auto (Urine sed) [#/Area]Epithelial cells.squamous [#/area] in Urine sediment by Automated countHigh0-2FUniversity Hospitals Cleveland Medical CenterErythrocytes [#/area] in Urine sediment by Automated countOrdered By: Loco Green on 60-52-6358GLB Auto (Urine sed) [#/Area]Erythrocytes [#/area] in Urine sediment by Automated count 0-4FUniversity Hospitals Cleveland Medical CenterGlucose [Mass/volume] in Urine by Test strip Ordered By: Loco Green on 93-87-5826Lzosyvd Test strip (U) [Mass/Vol]Glucose [Mass/volume] in Urine by Test stripNormSalem Regional Medical Center Hemoglobin Test strip Ql (U)Ordered By: Loco Green on 87-58-7197Flfjfppmvs Ql (U)Hemoglobin [Presence] in Urine by Test stripHighNegBarnesville HospitalHyaline casts [#/area] in Urine sediment by Automated countOrdered By: Loco Green on 10-68-4536Upcyzir casts Auto (Urine sed) [#/Area]Hyaline casts [#/area] in Urine sediment by Automated count0-8Mer[facility] Health Anderson HospitalKetones Test strip Ql (U)Ordered By: Loco Green on 68-96-9995Aedexuz Ql (U)Ketones [Presence] in Urine by Test stripNegBarnesville HospitalLeukocyte esterase [Presence] in Urine by Test stripOrdered By: Loco Green on 69-73-3497Zbnjmqvqq esterase Test strip Ql (U)Leukocyte esterase [Presence] in Urine by Test stripNegBarnesville Hospital Leukocytes [#/area] in Urine sediment by Automated countOrdered By: Loco Green on 67-45-0024NXS Auto (Urine sed) [#/Area]Leukocytes [#/area] in Urine sediment by Automated count0-4FUniversity Hospitals Cleveland Medical CenterMucus [Presence] in Urine by AutomatedOrdered By: Loco Green on 39-32-6222Cztxc Auto Ql (U)Mucus [Presence] in Urine by AutomatedMercy Health Anderson HospitalNitrite Test strip Ql (U)Ordered By: Loco Green on 69-72-1016Ozorqot Ql (U)Nitrite [Presence] in Urine by Test stripNegBarnesville Hospital Protein Test strip (U) [Mass/Vol]Ordered By: Loco Green on 61-66-5899Rgggovv (U) [Mass/Vol]Protein [Mass/volume] in Urine by Test stripNegSelect Medical Specialty Hospital - Akronpecific gravity Test strip (U) [Rel density]Ordered By: Loco Green on 85-07-7856Gkyylihb gravity (U) [Rel density]Specific gravity of Urine by Test strip1.001-1.030Mer[facility] Health Anderson HospitalUrine Cultureon 16-99-8474Anvsujit identified Cx Nom (U)75,000 colonies/ml mixed bacterial skin contaminants 2 Days PERFORMED BY: [facility] [address] [place] [address] PATHOLOGIST WRONG ADDRESS CLERK JINA TOWNSEND M.D.NormalThe [facility] Hospital Physician GroupComment on above: Performed By: #### CUU #### [facility] [address] [place] [address] USAUrine cultureOrdered By: Loco Green on 37-90-4874Xrkdigqr identified Cx Nom (U)Urine cultureMercy Health Anderson HospitalUrobilinogen Test strip (U) [Mass/Vol]Ordered By: Loco Green on 76-73-6017Smdrspitgani (U) [Mass/Vol]Urobilinogen [Mass/volume] in Urine by Test stripNormalMercy Health Anderson HospitalpH Test strip (U)Ordered By: Loco Green on 75-51-2971uA (U)pH of Urine by Test strip5.0-9.0Mercy Health Anderson HospitalIGP,APTIMA HPV,AGE GDLNon 12-26-6008CZZ GDLN ACOG TESTINGNote.NOMS HealthcareComment on above:TESTS RESULT FLAG UNITS REF RANGE LAB Clinician Provided Cytology Information Source.............Vagina No. of containers..01 ThinPrep Vial Age Algo ACOG Heavenly... FLAG LEGEND: L-Low Normal,H-High Normal,LL-Alert Low,HH-Alert High <-Panic Low,>-Panic High,A-Abnormal,AA-Critical Abnormal Performed at: 01 =[address] [address] Sintia Dahl MD, HPV APTIMANegativeNegativeNOMS HealthcareComment on above:This nucleic acid amplification test detects fourteen high- risk HPV types (16,18,31,33,35,39,45,51,52,56,58,59,66,68) without differentiation. Performed at: =[facility] [id number] Director Hris: Sintia Dahl MD, Phone: [phone] Performed at: [facility] [id number] Director Hris: Sintia Dahl MD, Phone: [phone] IGP, APTIMA HPV, RFX 16/18,45Note.NOMS HealthcareComment on above:TESTS RESULT FLAG UNITS REF RANGE LAB DIAGNOSIS: 02 NEGATIVE FOR INTRAEPITHELIAL LESION OR MALIGNANCY. THIS SPECIMEN WAS RESCREENED PART OF OUR UNIX ANALYST PROGRAM. Specimen adequacy: 02 Satisfactory for evaluation. Performed by: Darien Iqbal Wood Technologist ([facility]) QC reviewed by: Darien Mercedes Wood Technologist ([facility]) . 02 Note: Note 02 The Pap smear is a screening test designed to aid in the detection of premalignant and malignant conditions of the uterine cervix. It is not a diagnostic procedure and should not be used as the sole means of detecting cervical cancer. Both false-positive and false-negative reports do occur. Test Methodology: Note 02 This liquid based ThinPrep(R) pap test was screened with the use of an image guided system. HPV Genotype Reflex Note 02 Criteria not met, HPV Genotype not performed. FLAG LEGEND: L-Low Normal,H-High Normal,LL-Alert Low,HH-Alert High <-Panic Low,>-Panic High,A-Abnormal,AA-Critical Abnormal Performed at: [address] [address] Sintia Dahl MD, SPATULA-ALONE VAGINA CLINISYNCNOLake Regional Health SystemLo 32-14-0690SDaazssmq: [id number] Received: 02/01/241258 Status: CLAUDE Verduzco Num: [id number] Spec Type: Surgical Subm Dr: Manuel Willoughby MD Tissues: A Breast Reduction - Mammoplasty (RT) B Breast Reduction - Mammoplasty (LT) Procedures: HE/4, Gross/Micro L4/2 Age/ Patient Sex Location Account Attending Physician Henrietta Rivera 48/F [place] [id number] Manuel Willoughby MD SPEC NUM: [id number] RECD: 02/01/24 STATUS: WENDYAlexi VERDUZCO NUM: [id number] BRAYAN: 02/01/[address]: Manuel Willoughby MD ENTERED: 02/01/[address] [facility] [address]: SPEC TYPE: Surgical DEPT: S ORDERED: [...] No discrete masses or lesions are present. Mechanical Equipment Test Engineer sections are submitted in A1?A2. Specimen: [id number] Received: 02/01/24 Status: CLAUDE Luba Num: [id number] Spec Type: Surgical Subm Dr: Manuel Willoughby MD Tissues: A Breast Reduction - Mammoplasty (RT) B Breast Reduction - Mammoplasty (LT) Procedures: YVON/Julia Silverman/Manuel L4/2 Patient: Henrietta Rivera [id number] (Continued) Specimen: [id number] Received: 02/01/24 (Continued) Julia Description (Continued) Signed (signature on file) Neena Esposito MD 02/03/24 1739 Specimen: [id number] Received: 02/01/24 Status: CLAUDE Menjivartiffanie Num: [id number] Spec Type: Surgical Subm Dr: Manuel Willoughby MD Tissues: A Breast Reduction - Mammoplasty (RT) B Breast Reduction - Mammoplasty (LT) Procedures: Julia MELÉNDEZ/Manuel L4/2 Patient: Henrietta Rivera [id number] (Continued) Specimen: [id number] Received: 02/01/24 (Continued) Gross Description (Continued) Time of collection: [...] No discrete masses or lesions are present. Mechanical Equipment Test Engineer sections are submitted in B1?B2. Time of collection: 02/01/2024 at 1143 Time placed in formalin: 02/01/2024 at 1228 Placed in 10% neutral buffered formalin Time grossed: 02/01/2024 at 1432 TW CPT Codes 24957N9 Specimen: [id number] Received: 02/01/24 Status: CLAUDE Verduzco Num: [id number] Spec Type: Surgical Subm Dr: Manuel Willoughby MD Tissues: A Breast Reduction - Mammoplasty (RT) B Breast Reduction - Mammoplasty (LT) Procedures: HE/Andra, Gross/Micro L4/2 Patient: Henrietta Rivera [id number] (Continued) Signed (signature on file) Matthew-Erwin Esposito MD (more content not included)...[facility] Physician GroupECG 12 lead ECGon 22-41-3444HNT 12 lead ECGPARKVIEW [place] [address] Electrocardiograph Report Signed Patient: Henrietta Rivera MR#: [id number] : 1975 Acct:[id number] Age/Sex: 48 / F ADM Date: 01/18/24 Loc: Room: Type: [facility] Attending Dr: Manuel Willoughby MD [...] ECG No previous ECGs available Confirmed by LIZANDRO GOVEA, ALEC ([id number]) on 01/19/2024 3:09:38 PM Referred By: OJ Electronically Signed By:ALEC GARCIA MD Transcribed By: MUS Signed By Alec Garcia MD 0 01/19/[address] [place] [address] Physician GroupMM TOMOSYNTHESIS SCREENING BIon 34-08-9592[place]vgS[place] [address] Mammography Report Signed Patient: HENRIETTA RIVERA MR#: [id number] : 1975 Acct:[id number] Age/Sex: 48 / F ADM Date: 12/01/23 Loc: MAMMO Attending Dr: Abbe Altamirano D.O. Ordering Physician: Abbe Altamirano D.O. Results: Date of Service: 12/01/23 Follow Up: Procedure(s): MM tomosynthesis screening BI Accession Number(s): [id number] cc: Abbe Altamirano D.O.; LOCO GREEN Patient Name: HENRIETTA RIVERA MR#: [id number] : 1975 Exam Date: 12/01/2023 Ordering Doctor: DR Abbe Altamirano . RADIOLOGY REPORT PROCEDURE: MM TOMOSYNTHESIS SCREENING BI COMPARISON: MG MAMM SCREEN 3D JOE CAD, 12/29/2022. MG MAMM SCREEN 3D JOE CAD, 11/12/2021. MG MAMM SCREEN JOE W CAD, 10/08/2020. MG MAMM SCREEN JOE W CAD, 12/11/2018. INDICATIONS: Screening Calculator Name NCI Breast Cancer Risk Assessment Tool 5 Year Breast Cancer Risk 1.60% Lifetime Breast Cancer Risk 14.70% Personal Breast Cancer No Personal Ovarian Cancer No Treatments None Family Cancers Sister with breast cancer at age 50; Aunt-maternal with breast cancer at age 52; Grandmother-maternal with brain cancer at age 60. LOCATION: [facility] BREAST COMPOSITION: The breasts are heterogeneously dense,which may obscure small masses. FINDINGS: DIAGNOSTIC CATEGORY 1--NEGATIVE. RIGHT BREAST: No significant suspicious finding. No significant change has occurred. LEFT BREAST: No significant suspicious finding. No significant change has occurred. RECOMMENDATIONS: ROUTINE MAMMOGRAM AND CLINICAL EVALUATION IN 12 MONTHS. PLEASE NOTE: A NORMAL MAMMOGRAM DOES NOT EXCLUDE THE POSSIBILITY OF BREAST CANCER. A CLINICALLY SUSPICIOUS PALPABLE LUMP SHOULD BE BIOPSIED. Dictated by: Raad Munguia M.D. on 12/01/2023 at 15:25 Approved by: Raad Munguia M.D. on 12/01/2023 at 15:27 Dictated By: Raad Munguia M.D. Signed By: 12/01/23 1528 DD/ 1527 TD/TT: Sales And Service Officer:TBHRadiology, Radiologist, - 12/01/2023 [address] [place] [id number] Mammography Report Signed Patient: HENRIETTA RIVERA MR#: [id number] : 1975 Acct:[id number] Age/Sex: 48 / F ADM Date: 12/01/23 Loc: MAMMO Attending Dr: Abbe Altamirano D.O. Ordering Physician: Abbe Altamirano D.O. Results: Date of Service: 12/01/23 Follow Up: Procedure(s): MM tomosynthesis screening BI Accession Number(s): [id number] cc: Abbe Altamirano D.O.; LOCO GREEN Patient Name: HENRIETTA RIVERA MR#: [id number] : 1975 Exam Date: 12/01/2023 Ordering Doctor: DR Abbe Altamirano . RADIOLOGY REPORT PROCEDURE: MM TOMOSYNTHESIS SCREENING BI COMPARISON: MG MAMM SCREEN 3D JOE CAD, 12/29/2022. MG MAMM SCREEN 3D JOE CAD, 11/12/2021. MG MAMM SCREEN JOE W CAD, 10/08/2020. MG MAMM SCREEN JOE W CAD, 12/11/2018. INDICATIONS: Screening Calculator Name NCI Breast Cancer Risk Assessment Tool 5 Year Breast Cancer Risk 1.60% Lifetime Breast Cancer Risk 14.70% Personal Breast Cancer No Personal Ovarian Cancer No Treatments None Family Cancers Sister with breast cancer at age 50; Aunt-maternal with breast cancer at age 52; Grandmother-maternal with brain cancer at age 60. LOCATION: [facility] BREAST COMPOSITION: The breasts are heterogeneously dense,which may obscure small masses. FINDINGS: DIAGNOSTIC CATEGORY 1--NEGATIVE. RIGHT BREAST: No significant suspicious finding. No significant change has occurred. LEFT BREAST: No significant suspicious finding. No significant change has occurred. RECOMMENDATIONS: ROUTINE MAMMOGRAM AND CLINICAL EVALUATION IN 12 MONTHS. PLEASE NOTE: A NORMAL MAMMOGRAM DOES NOT EXCLUDE THE POSSIBILITY OF BREAST CANCER. A CLINICALLY SUSPICIOUS PALPABLE LUMP SHOULD BE BIOPSIED. Dictated by: Raad Munguia M.D. on 12/01/2023 at 15:25 Approved by: Raad Munguia M.D. on 12/01/2023 at 15:27 Dictated By: Raad Munguia M.D. Signed By: 12/01/23 1528 DD/ 1527 TD/TT: Sales And Service Officer: [facility] MEDICAL CENTERKatina Mer[facility] Tiffin HospitalRadiology Study observation (narrative)[facility] TOMOSYNTHESIS SCREENING BIOrdered By: Radiologist Radiology on 93-20-0342BULM AOTMP Work Phone: Progress Noteson 56-24-1886Nlayccjldnrer Authentication Interface Message TextPt left the waiting room at her scheduled appointment time. She had been inthe waiting room about 4 minutes. She called the office [place] and got very nervous. Slava Helms APRNMarietta Memorial Hospital SystemNo Panel Informationon 58-21-8362LatSomer[place] [address] Ultrasound Report Signed Patient: HENRIETTA RIVERA MR#: [id number] : 1975 Acct:[id number] Age/Sex: 48 / F ADM Date: 08/16/23 Loc: US Attending Dr: Abbe Altamirano D.O. Ordering Physician: Abbe Altamirano D.O. Date of Service: 08/16/23 Procedure(s): US breast RT complete Accession Number(s): [id number] cc: Abbe Altamirano D.O.; LOCO GREEN Patient Name: HENRIETTA RIVERA MR#: [id number] : 1975 Exam Date: 08/16/2023 Ordering Doctor: DR Abbe Altamirano . RADIOLOGY REPORT PROCEDURE: US BREAST RT COMPLETE COMPARISON: None. INDICATIONS: Right Breast Pain N64.4 TECHNIQUE: Breast ultrasound was performed, with evaluation focusing only on specific areas of concern. FINDINGS: Right breast ultrasound demonstrates at the 3 o'clock position a 3 mm area of anechoic echogenicity consistent with a simple cyst. Dilated duct is observed. No additional focal abnormality is observed to correspond to patient's pain. Further evaluation should be based on clinical and physical exam. RECOMMENDATIONS: No focal ultrasound abnormality to correspond to the patient's pain PLEASE NOTE: A NORMAL ULTRASOUND EXAMINATION DOES NOT EXCLUDE THE POSSIBILITY OF BREAST CANCER. A CLINICALLY SUSPICIOUS PALPABLE LUMP SHOULD BE BIOPSIED. Dictated by: Kendall Charles MD on 08/16/2023 at 14:55 Approved by: Kendall Charles MD on 08/16/2023 at 14:57 Dictated By: Kendall Charles M.D. Signed By: 08/17/23 1515 DD/ 1457 TD/TT: Sales And Service Officer:Krsyta Stroud InformationOrdered By: Radiologist Radiology on 91-36-2942DZDZ AOTMP Work Phone: us BREAST RT COMPLETEon 26-31-5907Hgoogeyyk, MD Iam - 08/17/2023 [place] [address] Ultrasound Report Signed Patient: HENRIETTA RIVERA MR#: [id number] : 1975 Acct:[id number] Age/Sex: 48 / F ADM Date: 08/16/23 Loc: US Attending Dr: Abbe Altamirano D.O. Ordering Physician: Abbe Altamirano D.O. Date of Service: 08/16/23 Procedure(s): US breast RT complete Accession Number(s): [id number] cc: Abbe Altamirano D.O.; LOCO GREEN Patient Name: HENRIETTA RIVERA MR#: [id number] : 1975 Exam Date: 08/16/2023 Ordering Doctor: DR Abbe Altamirano . RADIOLOGY REPORT PROCEDURE: US BREAST RT COMPLETE COMPARISON: None. INDICATIONS: Right Breast Pain N64.4 TECHNIQUE: Breast ultrasound was performed, with evaluation focusing only on specific areas of concern. FINDINGS: Right breast ultrasound demonstrates at the 3 o'clock position a 3 mm area of anechoic echogenicity consistent with a simple cyst. Dilated duct is observed. No additional focal abnormality is observed to correspond to patient's pain. Further evaluation should be based on clinical and physical exam. RECOMMENDATIONS: No focal ultrasound abnormality to correspond to the patient's pain PLEASE NOTE: A NORMAL ULTRASOUND EXAMINATION DOES NOT EXCLUDE THE POSSIBILITY OF BREAST CANCER. A CLINICALLY SUSPICIOUS PALPABLE LUMP SHOULD BE BIOPSIED. Dictated by: Kendall Charles MD on 08/16/2023 at 14:55 Approved by: Kendall Charles MD on 08/16/2023 at 14:57 Dictated By: Kendall Charles M.D. Signed By: 08/17/23 1515 DD/ 1457 TD/TT: Sales And Service Officer: ELISHA HealthcareRadiology, Radiologist, MD - 10/18/2023 [place] [address] Ultrasound Report Signed Patient: HENRIETTA RIVERA MR#: [id number] : 1975 Acct:[id number] Age/Sex: 48 / F ADM Date: 08/16/23 Loc: US Attending Dr: Abbe Altamirano D.O. Ordering Physician: Abbe Altamirano D.O. Date of Service: 08/16/23 Procedure(s): US breast RT complete Accession Number(s): [id number] cc: Abbe Altamirano D.O.; LOCO GREEN Patient Name: HENRIETTA RIVERA MR#: [id number] : 1975 Exam Date: 08/16/2023 Ordering Doctor: DR Abbe Altamirano . RADIOLOGY REPORT PROCEDURE: US BREAST RT COMPLETE COMPARISON: None. INDICATIONS: Right Breast Pain N64.4 TECHNIQUE: Breast ultrasound was performed, with evaluation focusing only on specific areas of concern. FINDINGS: Right breast ultrasound demonstrates at the 3 o'clock position a 3 mm area of anechoic echogenicity consistent with a simple cyst. Dilated duct is observed. No additional focal abnormality is observed to correspond to patient's pain. Further evaluation should be based on clinical and physical exam. RECOMMENDATIONS: No focal ultrasound abnormality to correspond to the patient's pain PLEASE NOTE: A NORMAL ULTRASOUND EXAMINATION DOES NOT EXCLUDE THE POSSIBILITY OF BREAST CANCER. A CLINICALLY SUSPICIOUS PALPABLE LUMP SHOULD BE BIOPSIED. Dictated by: Kendall Charles MD on 08/16/2023 at 14:55 Approved by: Kendall Charles MD on 08/16/2023 at 14:57 Dictated By: Kendall Charles M.D. Signed By: 08/17/23 1515 DD/ 1457 TD/TT: Sales And Service Officer: ELISHA Lezama Panel Informationon 74-54-3051Vyvlmhrwf Study observation (narrative)[facility] HospitalCytology Cervical or vaginal smear or scraping study Ordered By: Edwige Sullivan on 78-55-6070UDTS HealthcareOutside Colonoscopyon 26-86-4456Gtzvznd [id number]#1.00CD:127 [facility] CantonReminderson 19-61-0070Msmukydgc From: Carlie Mack LPN To: N - Clinical; Sent: 07/28/2022 11:15:46 EST Show up: 06/27/2032 07:00:00 EST Subject: colonoscopy recall Due Date/Time: 07/27/2032 07:00:00 EST Reminder/Recall Patient is due for screening colonoscopy 07/27/2032.[facility] CantonLab Reportson 45-09-8477Sje Reports [id number]#1.00CD:127NormalZanesville City HospitalCovid-19 PCR (CVDTB)on 58-21-5229LHOM-CoV-2 (COVID-19) RNA NICHELLE+probe Ql (Unsp spec)Not detectedNormalNOT DETECTEDThe [facility] CenterComment on above: Result Comment: When diagnostic testing [...] for this test is supported by the Sound Editor of Health and Human Service's declaration that circumstances exist to justify the emergency use of in vitro diagnostics for the detection and/or diagnosis of the virus that causes COVID-19. This EUA will remain in effect for the duration of the COVID-19 declaration justifying emergency of IVDs, unless it is terminated or revoked by the FDA (after which the test may no longer be used).Performed By: #### CVDTBH #### [facility] [address] [place] [address] Dr. Charisse Carvajal for Procedure/Surgeryon 81-25-5098Sspflsf for Procedure/[id number]#1.00CD:[address] [place], [place] [address]Facesheeton 24-76-2296Ggqajmccn [id number]#1.00CD:[address] [place], [place] [address]Pre-Certification Formon 15-69-8738Pbk-Certification Form [id number]#1.00CD:[address] [place], [place] [address]Physician Referralon 53-50-2738Mlghlupru Referral [id number]#1.00CD:[address] [place], [place] [address]PAP ACOG PANEL 2: 30 to 65on 06-23-2022..NormalMer[facility] Comment on above:Result Comment: Performed at: WBPerformed By: #### [id number] #### [facility] [address] [place] [address] Dr. Charisse EspositoAge Gdln ACOG Szrsbbw84-18CtnczeSncUpper Valley Medical CenterComment on above:Performed By: #### [id number] #### [facility] [address] [place] [address] Dr. Charisse EspositoDIAGNOSIS:CommentHocking Valley Community HospitalComment on above: Result Comment: NEGATIVE FOR INTRAEPITHELIAL LESION OR MALIGNANCY. Performed at: WBPerformed By: #### [id number] #### [facility] [address] [place] [address] Dr. Charisse Valdez AptimaNegativeNormalNegativeUniversity Hospitals Lake West Medical Center on above:Result Comment: This nucleic acid amplification test detects fourteen high-risk HPV types (16,18,31,33,35,39,45,51,52,56,58,59,66,68) without differentiation. Performed at: =GPerformed By: #### [id number] #### [facility] [address] [place] [address] Dr. Charisse Valdez Genotype ReflexCommentHolzer Medical Center – Jackson on above:Result Comment: Criteria not met, HPV Genotype not performed. Performed at: WBPerformed By: #### [id number] #### [facility] [address] [place] [address] Dr. Charisse EspositoMethodology:CommentHolzer Medical Center – Jackson on above: Result Comment: This liquid based ThinPrep(R) pap test was screened with the use of an image guided system. Performed at: WBPerformed By: #### [id number] #### [facility] [address] [place] [address] Dr. Charisse EspositoNote:CommentNoOur Lady of Mercy [facility] - Anderson on above:Result Comment: The Pap smear is a screening test designed to aid in the detection of premalignant and malignant conditions of the uterine cervix. It is not a diagnostic procedure and should not be used as the sole means of detecting cervical cancer. Both false-positive and false-negative reports do occur. . Performed at: WBPerformed By: #### [id number] #### [facility] [address] [place] [address] Dr. Charisse EspositoPerformed by:CommentNoOur Lady of Mercy Hospital - Anderson on above: Result Comment: Luís Chaudhari, Wood Technologist (ASCP) Performed at: WBPerformed By: #### [id number] #### [facility] [address] [place] [address] Dr. Charisse EspositoSpecimen adequacy:CommentHolzer Medical Center – Jackson on above:Result Comment: Satisfactory for evaluation. No endocervical component is identified. Performed at: WBPerformed By: #### [id number] #### [facility] [address] [address] [address] Charisse Allen Referralon 61-65-1003Wgxiiwizc Referral [id number]#1.00CD:127[facility] - CantonMG MAMM SCREEN 3D JOE CADon 02-14-8954YT MAMM SCREEN 3D JOE CADPatient: HENRIETTA RIVERA Exam Date: 11/12/2021 : 1975 Gender:F Ordering : DR LOCO GREEN Admission #: [id number] Family : Order #: [id number] CLICK HERE TO VIEW EXAM RADIOLOGY REPORT [...] brain cancer at age 58. LOCATION: [facility] BREAST COMPOSITION: Heterogeneously dense,which may [...] by: Kendall Charles MD on 11/12/2021 at 11:59[facility] Vital Signs Date TimeVital SignValuePerforming GkexrtlogFgrxnern58-11-7688 09:43-0400Body fcxedi214.02 Quinn Green MD Work Phone: [facility]03-10-2025 09:43-0400 Body mass index (BMI) [Ratio]28.6 kg/z0CwpfdsLoco Green MD Work Phone: [address] [place], [place] [address]03-10-2025 09:43-0400 Body phkorlnfrto45.1 [degF]Loco Green MD Work Phone: [phone] [place], [place] [address]03-10-2025 09:43-0400 Body ycwmfk69.31 kgLoco Green MD Work Phone: [phone]03-10-2025 09:43-0400 Diastolic blood nmwkwfzu56 mm[Hg]Loco Green MD Work Phone: [phone])[address]03-10-2025 09:43-0400 Heart anyi548 /minLoco Green MD Work Phone: [phone]03-10-2025 09:43-0400 Respiratory rate14 /minLoco Green MD Work Phone: [phone]03-10-2025 09:43-0400 SaO2% (BldA) [Mass fraction]96 %Loco Green MD Work Phone: [address] [place], [place] [address]03-10-2025 09:43-0400 Systolic blood ebaupwdw755 mm[Hg]Loco Green MD Work Phone: [address] [place], [place] [address]40[address]11-11-2024 11:30-0500 Body mass index (BMI) [Ratio]27.53 kg/b1Mgkzh Evelia DO Work Phone: [facility] HospitalAicpaoemql82-01-1938 11:30-0500Body .76 kgCorey Evelia DO Work Phone: [facility] HospitalXlydzpqiej92-16-4102 11:30-0500Diastolic blood hhlgairp20 mm[Hg]Abbe Evelia DO Work Phone: [facility] HospitalZeutuujvir00-15-6398 11:30-0500Systolic blood mm[Hg]Abbe Evelia DO Work Phone: [facility] HospitalCgbwjfloao90-22-4321 09:59-0400Body dfbezv349.6 cmCorey Evelia DO Work Phone: [facility] HospitalRvvnrlycta44-18-0828 09:59-0400Body mass index (BMI) [Ratio]27.81 kg/h7Xywji Evelia DO Work Phone: [facility] HospitalXlpwwynnjd89-08-8489 09:59-0400Body rxuwmb23.48 kgCoreruddy Evelia DO Work Phone: [facility] HospitalQxtcyrhlkt94-97-5821 09:59-0400Diastolic blood mm[Hg]Abbe Evelia DO Work Phone: [facility] HospitalVmtedurjof22-97-4491 09:59-0400Systolic blood ybpciuhf219 mm[Hg]Abbe Hurdo DO Work Phone: [facility] HospitalHleyddcvbf12-73-3710 14:30-0400Diastolic blood mm[Hg]MD Loco Green Work Phone: [phone]06-20-2024 14:30-0400 Heart rate81 /minMD Loco Green Work Phone: [phone]06-20-2024 14:30-0400 Respiratory rate20 /minMD Loco Green Work Phone: [phone]06-20-2024 14:30-0400 SaO2% (BldA) [Mass fraction]95 %MD Loco Green Work Phone: [facility]06-20-2024 14:30-0400 Systolic blood pfcdroym561 mm[Hg]MD Loco Green Work Phone: [phone]06-20-2024 13:07-0400 Body gdfggrenpcy67.4 [degF]MD Loco Green Work Phone: [phone]06-20-2024 12:37-0400 Inhaled oxygen flow rate8 L/minMD Loco Green Work Phone: [facility]06-20-2024 10:21-0400 Body hbjfau055.56 cmMD Loco Carmel Work Phone: [facility]06-20-2024 10:-040 Body mass index (BMI) [Ratio]27.8 kg/m2MD Loco Carmel Work Phone: [facility]06-20-2024 10:040 Body ocqprc23.48 kgMD [facility] Work Phone: [facility] Encounters Encounter DateEncounter TypeCare ProviderFacilityStart: 06-14-2025 End: 83-62-4563Kajqgv encounterAndreshirley Helms ANIMAL DOCTOR-CYTOLOGY LABORATORY MANAGER Work Phone: MetroHealthStart: 12-04-2024 End: 37-66-3819Hwrgnizxk Result EncounterGeneric External Data ProviderNOMS External Department UnsolicitedStart: 12-04-2024 End: 40-46-6188Tckwkawxu Result EncounterGeneric External Data ProviderNOMS External Department UnsolicitedStart: 11-05-2024 End: 45-23-4207Txwiny OnlyMicmorelia Alvarez NP Work Phone: noms External Department UnsolicitedStart: 11-05-2024 End: 18-69-7150vhemhzixgqFKGPMU L HILLNot AvailableStart: 10-21-2024 End: 38-34-3917rniguopqooZwvhiv Hill MD Work Phone: [facility] Work Phone: Start: 10-21-2024 End: 20-64-5325Bxuqhfv encounter procedureLoco Green MD Work Phone: [facility] Work Phone: Start: 09-24-2024 End: 65-14-0744Ngscwvk encounter Deshawn Green MD Work Phone: [facility] [place] Work Phone: Start: 09-24-2024 End: 81-46-3378gtdpaktremKdumyv Hill MD Work Phone: [facility] Work Phone: Start: 06-24-2024 End: 58-22-1630Uphjmy flowsheetCorey Evelia DO Work Phone: [facility] OBStart: 06-24-2024 End: 43-94-1399Qxzufi flowsheetCorey Evelia DO Work Phone: [facility] OBStart: 06-24-2024 End: 37-07-5905Fxchdrlad Result EncounterGeneric External Data ProviderNOMS External Department UnsolicitedStart: 06-24-2024 End: 06-31-2910Vpqnhoj encounter procedureCorey Evelia DO Work Phone: [facility] Work Phone: Start: 06-24-2024 End: 08-80-2454Smmbxzlm preventive med est patient 40-64yrsCorey Evelia DO Work Phone: [facility] BCP OBComment on above:Well woman exam with routine gynecological exam; Breast cancer screening by mammogram; Postmenopausal stateStart: 06-24-2024 End: 21-00-4700uxpmyvqukqHIKPN FAZIONot AvailableStart: 06-10-2024 End: 37-85-6102Vskvno flowsheetCorey Evelia DO Work Phone: [facility] OBStart: 06-10-2024 End: 64-34-5111Anjwae flowsheetCorey Evelia DO Work Phone: [facility] OBStart: 06-10-2024 End: 43-49-6736Bntfyc outpatient visit 15 minutesCorey Evelia DO Work Phone: [facility] OBComment on above:Vaginal itchingStart: 06-10-2024 End: 40-67-1080hfrnfefxvaUGRRM FAZIONot AvailableStart: 02-01-2024 End: 56-38-1195Eyyttnjju to same day surgery centerNV Loco Green Work Phone: [facility]Start: 02-01-2024 End: 89-86-0592zeltfgbrwxTN Loco Green Work Phone: [facility] Work Phone: Start: 01-18-2024 End: 78-59-6979Tgpyemz encounter procedureMD Loco Carmel Work Phone: [facility] Work Phone: Start: 01-18-2024 End: 19-54-5640dzgseruwnrUT Loco Carmel Work Phone: [facility] Work Phone: Start: 78-60-3550Jbjpmziuk for preprocedural cardiovascular examinationGregMetroHealth [facility] Physician GroupStart: 12-01-2023 End: 08-82-9411Tvijauymk Result EncounterGeneric External Data ProviderNOMS External Department UnsolicitedStart: 12-01-2023 End: 79-72-5344Uizhalqks Result EncounterGeneric External Data ProviderNOMS External Department UnsolicitedStart: 88-01-0147Nsrdcd encounterMetroHealth Start: 47-74-6324krnreeoxbeDWITNBF PROVIDERFacility:METROHealthStart: 09-13-2023 End: 94-89-4944Evmdsmf encounter procedureSlava Helms ANIMAL DOCTOR-CYTOLOGY LABORATORY MANAGER Work Phone: [facility] Plastic SurgeryComment on above:No-show for appointment (Primary Dx)Start: 08-16-2023 End: 17-39-6806Lngsjzeff Result EncounterGeneric External Data ProviderNOMS External Department UnsolicitedStart: 08-16-2023 End: 38-04-2334Vmnhuyqzp Result EncounterGeneric External Data ProviderNOMS External Department UnsolicitedStart: 33-24-7758Cafmccebj for preprocedural laboratory examinationDR NATY [facility] HospitalStart: 07-27-2022 End: 19-86-5955rdbqhmiqoySV MICHAEL NILLFacility:D3Bunlj: 07-23-2022 End: 92-81-7323jkkwdyhylkZC NATY LIULFacility:A3Gqhcl: 07-23-2022 End: 95-85-6629Izlemxeng for preprocedural laboratory examinationDR NATY ROBERT Facility:N5Jjcbr: 07-12-2022 End: 05-63-4787dlwpwrlhmrOxjggtx Kassi NILLFacility: [place]vueStart: 06-15-2022 End: 47-73-5905sqzznzpszdWZ ABBE FAZIOFacility:I6Bcnwf: 45-87-1290njjgiqbxka Naty NILLFacility: BellevueStart: 11-12-2021 End: 64-78-8110sbafxegvywLA ABBE FAZIOFacility:H1 Procedures DateProcedureProcedure DetailPerforming ClinicianStart: 75-26-1711RA TOMOSYNTHESIS SCREENING BIGeneric External Data ProviderStart: 12-04-2024 MammographyGeneric ProviderStart: 40-03-1936Vkbgrru bacterial quanttative colony count urineMicmorelia Alvarez RECRUITER Work Phone: Start: 18-13-8914ENXFY CULTURE CLEAN CATCH REFLEX David Alvarez RECRUITER Work Phone: Start: 59-90-5861Vgxyx cultureLoco Green MD Work Phone: Start: 36-20-4183LKH,APTIMA HPV,AGE GDLNCorey Evelia DO Work Phone: Start: 09-67-2486Autiufmlpnx observation [Identifier] in Cervix by Cyto stainMicmorelia Alvarez RECRUITER Work Phone: Start: 42-47-6752Ncbobwfaj mammoplastyMD Loco Green Work Phone: Start: 26-60-1097SqxjkwotgglZtxkb Evelia DO Work Phone: Start: 73-76-4548AT TOMOSYNTHESIS SCREENING BIGeneric External Data ProviderStart: 35-85-9826NS BREAST RT COMPLETEGeneric External Data ProviderStart: 03-63-0327Cdpmoizquzc observation [Identifier] in Cervix by Cyto stainCorey Evelia DO Work Phone: Start: 56-35-9206Irec cerv/vag auto thin layer prep mnl screenAmy Michelle ALEXIS Work Phone: Start: 15-53-1223AirfopsrexzIorpy Evelia DO Work Phone: Plan of Treatment DateCare ActivityDetailAuthorStart: 25-08-0740Wenabfqoe for malignant neoplasm of colonNOMS HealthcareStart: 86-31-8298Athcdryvz for malignant neoplasm of cervixNOMS HealthcareStart: 33-91-8157Aylopospncx [Mass/volume] in Serum or PlasmaCholesterolMetroHealthStart: 62-14-8101Kpvzn panelCholesterolMetroHealth Start: 72-36-8605Bgsywlarn for malignant neoplasm of cervixPap SmearNOMS HealthcareStart: 38-44-6952Rzegdufhk for malignant neoplasm of breastMammogram NOMS HealthcareStart: 11-11-2025 End: 06-12-3201Wqjsoql encounter procedureNOMS SWS IMStart: 07-03-2025 End: 06-69-1005Ighmdzg encounter procedureNOMS BCP OBStart: 13-78-6065NAHML-19 Vaccine ( season)COVID-19 Vaccine ( season)[facility] Start: 55-41-2689Aipfdbzqh vaccinationNOMS HealthcareStart: 93-99-4749Vrcgjepyf vaccinationInfluenza Vaccine (#1)NOMS HealthcareComment on above:Postponed from 04/14/2024 (Patient Refused)Start: 11-92-2516Pzdekbphx for malignant neoplasm of breastMammogramNOMS HealthcareStart: 11-05-2024 End: 23-04-1813Ogkbjkx encounter gmihxqxzv41/25/2025 9:15 AM EDT Office Visit [facility] [address] [place] [address] Loco Green MD [address] [place] [address] [facility] IMStart: 77-33-3998Vnrfjtqe identified in Urine by CultureUrine CultureKettering Health – Soin Medical Centertart: 06-24-2024 End: 58-31-5629QT Breast - bilateral ScreeningBilateral screening mammogram Imaging Routine Breast cancer screening by mammogram Expected: 06/24/2024, Expires: 08/24/2025[facility] Work Phone: comment on above:Expected: 06/24/2024, Expires: 08/24/2025Start: 06-24-2024 End: 22-38-0741Kmzzvif encounter bwruiokim88/11/2024 11:00 AM EST Office Visit [facility] [address] [place] [phone] Abbe Altamirano, DO [address] [place] [address] [facility]Start: 06-10-2024 End: 90-93-2797Oeevkhk encounter aynjesovn57/28/2024 9:30 AM EDT Office Visit [facility] OB [address] [place] [address] Abbe Altamirano, DO [address] [place] [address] ArrivedNOHUNTINGTON HOS[facility] OBComment on above:ArrivedStart: 24-18-3083Cvsvwobzc vaccinationInfluenza Vaccine (#1)NOMS HealthcareStart: 96-05-1881MjmfspdvnKettering Health – Soin Medical Centertart: 19-96-7732HyuyzmgbmKettering Health – Soin Medical Centertart: 71-71-1911Brndidtvi for malignant neoplasm of breast MammographyMetroHealthStart: 41-44-9296UBUCX-19 Vaccine ( season) COVID-19 Vaccine ( season)MetroHealthStart: 75-14-9227Czsjmfahz vaccinationInfluenza Vaccine (#1)MetroHealthStart: 04-94-4455Zzcyfbrczmyu vaccinationPneumococcal Vaccine(s) (50+ yrs) (1 of 1 - PCV)MetroHealthStart: 73-05-9079Ojqyqykc (RZV) Vaccine (1 of 2)Shingles (RZV) Vaccine (1 of 2) MetroHealthStart: 70-44-2284Gtxynzjedsu [Mass/volume] in Serum or Plasma CholesterolMetroHealthStart: 12-52-9310Jcyrfsiyd for malignant neoplasm of colon MetroHealthStart: 38-62-4388Wwllxdeez for malignant neoplasm of cervixPap Smear MetroHealthStart: 05-76-4720Wmwuysrqh A (HAV) Vaccine (optional start 19+ years) Hepatitis A (HAV) Vaccine (optional start 19+ years)MetroHealthStart: 1992 Hepatitis B vaccinationHepatitis B (HBV) Vaccine (1 of 3 - 19+ 3-dose series) MetroHealthStart: 80-94-3288Fvtevslnb C screeningHepatitis C AntibodyMetroHealth Start: 78-22-3317Cxhwmks + diphtheria + acellular pertussis vaccine (product) Tdap BoosterMetroHealthStart: 29-96-7679YQV screeningHIV TestMetroHealthStart: 01-56-4636Ujvloxpnp B vaccinationHepatitis B (HBV) Vaccine (1 of 3 - 3-dose series)MetroHealthStart: 64-80-7511Teibqixmg for malignant neoplasm of colon MetroHealthCHLAMYDIA TRACHOMATIS (GENITO/STI)CHLAMYDIA TRACHOMATIS (GENITO/STI) Lab Routine Vaginal itching Ordered: 06/10/2024[facility] HealthcareComment on above: Ordered: 06/10/2024Neisseria gonorrhoeae DNA [Presence] in Unspecified specimen by NICHELLE with probe detectionNeisseria gonorrhea DNA probe, direct Lab Routine Vaginal itching Ordered: 06/10/2024[facility] HealthcareComment on above:Ordered: 06/10/2024atient EducationKnow your [facility] Work Phone: [facility] Work Phone: SURESWAB(R) ADVANCED VAGINITIS PLUS, TMASURESWAB(R) ADVANCED VAGINITIS PLUS, TMA Pathology and Cytology Routine Vaginal itching Ordered: 06/10/2024[facility] Work Phone: comment on above:Ordered: 06/10/2024THIN PREP TIS PAP AND HR HPV DNATHIN PREP TIS PAP AND HR HPV DNA Pathology and Cytology Routine Well woman exam with routine gynecological exam Ordered: 06/24/2024[facility] HealthcareComment on above:Ordered: 06/24/2024[facility] Immunizations Immunization DateImmunizationNotesCare UqsfkmcyWfobhyci05-29-7156DWORG-68 Ad26.COV2.S (Juan Luis)MD Loco Green Work Phone: [facility]10-08-2018influenza, injectable, quadrivalent, contains preservativeAndreshirley Helms ANIMAL DOCTOR-CYTOLOGY LABORATORY MANAGER Work Phone: [phone]zHdenmy72-67-3486cemyqtnfk virus vaccine, unspecified formulationAndrea Scooter ANIMAL DOCTOR-CYTOLOGY LABORATORY MANAGER Work Phone: [facility] Payers DatePayer CategoryPayerPolicy [id number] - BLUE CROSS BLUE CROSS/HMO,PPO,POS [id number] 2023-Present [address] [place] [address] [id number] [employer] Shield [id number] 2.16.840.1.230650.3.57[id number] 2.16.840.1.331905.3.57[id number] 2.16.840.1.062343.3.57[id number] 2.16.840.1.798916.3.57[id number] 2.16.840.1.670064.3.57[id number] 2.16.840.1.595717.3.57[id number] 2..840.1.184199.3.57[id number] 2.840.1.000532.3.57[id number] 2.16.840.1.040551.3.57[id number] 2.840.1.895731.3.579.2.97[id number] 2.16.840.1.7[id number] 2.840.1.044928.3.579.2.531 [id number] 2.840.1.246441.3.579.2.531 Social History DateTypeDetailFacilityTobacco smoking status NHISTobacco smoking consumption unknownMetroHealthStart: 31-62-7930Fhg Assigned At BirthFemaleMetroHealthStart: 58-64-2741Urqhxg identityIdentifies as female gender (finding)MetroHealthStart: 02-20-2023 End: 68-50-7446Xcydah orientationNot on fileNOKY HealthcareStart: 02-20-2023 End: 78-41-2343Biefuug smoking status NHISEx-smoker (finding)[facility] Centertart: 08-14-1987 End: 02-62-4186Isbqnxu of tobacco useCurrent smokerNOKY HealthcareStart: 08-14-1987 End: 81-66-7022Hdwnftj of tobacco useCigarette SmokerNOKY HealthcareStart: 09-07-2023 End: 25-88-2493Mdgparfffi smoked current (pack per day) - Reported0.3NOKY HealthcareStart: 10-04-2023 End: 73-64-9572Fimylzz use and exposureSmokeless tobacco non-userNOKY Healthcare Start: 08-10-2023 End: 31-38-7868Skzflrlsy beverage intakeCurrent drinker of alcohol (finding)[facility] HealthcareHow often to you have a drink containing alcohol?NeverNOMS Healthcare Start: 37-09-8742Jrt many standard drinks containing alcohol do you have on a typical day?Patient does not drinkNOKY HealthcareStart: 27-72-3559Pirkbbq CommentEx light cigarette smoker(1-9 cigarettes/day)[facility] HealthcareStart: 31-98-2688Vqiojrg CommentAlcohol: 1-2 drinks/monthly or less Caffeine: 1-2 cups/dayK[facility]UM[facility]OURCE SSD HealthcareStart: 72-31-3635Ujkraq orientationHeterosexual (finding) [facility] HealthcareStart: 08-03-2023 End: 07-43-5302DadTewiax (finding)[facility] HospitalWithin the last year, have you been afraid of your partner or ex-partner?NoMetroHealthDo you belong to any clubs or organizations such as congregation groups, unions, fraternal or athletic groups, or school groups?YesMetroHealthAre you now , , , , never or living with a partner? MarriedMetroHealthDo you feel stress - tense, restless, nervous, or anxious, or unable to sleep at night because yourmind is troubled all the time - these days [OSQ]Not at allMetroHealth(I/We) worried whether (my/our) food would run out before (I/we) got money to buy more.Never trueMetroHealthStart: 09-07-2023 Pgryngoqc08YoixgUasbwo Goals DatePatient GoalDesired Activity/State Functional Status YkqpDcchbicfimChgwrcRjlqkcqf57-30-7141Tpdbabx Health Questionnaire 2 item (PHQ- 2) [Reported][facility] History of Present illness Narrative 06-24-2024 Note Date & FadoYrjsDgbcjdmq82-95-8449 History of Present illness Narrative* Kathy Perezfadia, CONCESSION ATTENDANT - 06/24/2024 11:00 AM EST Reason for Appointment: Patient ID: Henrietta Rivera is a 49 y.o. female who presents for Well Women Visit Patient presents today for Annual Exam. MEDICATIONS [...] PRN loratadine (CLARITIN) 10 mg, Daily PRN omeprazole (PriLOSEC) [address] capsule TAKE 1 CAPSULE BY MOUTH DAILY DO NOT CRUSH OR CHEW psyllium (Metamucil) 58.6 % powder 3 g of fiber, Daily PRN valACYclovir (VALTREX) 500 mg, Oral, 2 times daily PRN ALLERGIES Allergies Allergen Reactions Montelukast Other Reaction(s): muscle aches PROBLEMS Active Ambulatory Problems Diagnosis Date Noted Asthma ([facility]) 08/09/2016 Fibrocystic breast changes 11/28/2018 Gastroesophageal reflux disease 10/18/2018 Generalized anxiety disorder ([facility]) 02/21/2023 Herpes simplex virus (HSV) infection 08/09/2016 Inverse psoriasis ([facility]) 04/29/2019 Mixed incontinence 11/28/2018 Seasonal allergic rhinitis 08/09/2016 Sexual dysfunction 02/21/2023 Resolved Ambulatory Problems Diagnosis Date Noted Chronic constipation 02/27/2020 Dysmenorrhea 11/28/2018 Excessive and frequent menstruation 12/18/2018 Menopause 11/28/2018 Premenstrual tension syndrome 11/28/2018 Past Medical History: Diagnosis Date Bilateral fibrocystic breast changes Depression ([facility]) GERD (gastroesophageal reflux disease) Seasonal allergies STD (female) HISTORY PAST MEDICAL HISTORY SOCIAL HISTORY Past Medical History: Diagnosis Date Asthma ([facility]) Bilateral fibrocystic breast changes Depression ([facility]) Dysmenorrhea GERD (gastroesophageal reflux disease) Mixed [...] and are negative. OBJECTIVE Objective: Physical Exam Constitutional: Appearance: Normal appearance. She is well-developed. Genitourinary: Vulva normal. Breasts: Breasts are soft. Right: Normal. Left: Normal. Cardiovascular: Rate and Rhythm: Normal rate and regular rhythm. Pulmonary: Effort: Pulmonary effort is normal. Breath sounds: Normal breath sounds. Abdominal: General: Bowel sounds are normal. There [...] nursing note reviewed. Exam conducted with a technical support coordinator present. Vitals: Estimated body mass index is 27.53 kg/m as calculated from the following: Height as of 10/28/24: 5' 4 . Weight as of this encounter: 160 lb 6.4 oz. BP: 126/80 No LMP recorded. Patient is postmenopausal. ASSESSMENT & PLAN ICD-10-CM 1. Well woman exam with routine gynecological exam Z01.419 THIN PREP TIS PAP AND HR HPV DNA 2. Breast cancer screening by mammogram Z12.31 Bilateral screening mammogram Bilateral screening mammogram 3. Postmenopausal state Z78.0 CANCELED: DEXA bone density Annual: Patient presents today for an annual exam. Patient states she is doing well and has no complaints. Pap was obtained without difficulty and patient given mammogram order to have scheduled/obtained. Orders Placed This Encounter Procedures Bilateral screening mammogram Follow Up: Patient is to return in one year for annual unless needed otherwise. Documented by Kathy Geller LPN on behalf of: Abbe Altamirano DO documented in this encounterNOMS Healthcare History of Present illness Narrative 06-10-2024 Note Date & RovySqmsZmazhjee57-02-9467 History of Present illness Narrative* Kathy Geller LPN - 06/10/2024 9:30 AM EDT Reason for Appointment: Patient ID: Henrietta Rivera [...] Active Ambulatory Problems Diagnosis Date Noted Asthma ([facility]) 08/09/2016 Fibrocystic breast changes 11/28/2018 Gastroesophageal reflux disease 10/18/2018 Generalized anxiety disorder ([facility]) 02/21/2023 Herpes simplex virus (HSV) infection 08/09/2016 Inverse psoriasis ([facility]) 04/29/2019 Mixed incontinence 11/28/2018 Seasonal allergic rhinitis 08/09/2016 Sexual dysfunction 02/21/2023 Resolved Ambulatory Problems Diagnosis Date Noted Chronic constipation 02/27/2020 Dysmenorrhea 11/28/2018 Excessive and frequent menstruation 12/18/2018 Menopause 11/28/2018 Premenstrual tension syndrome 11/28/2018 Past Medical History: Diagnosis Date Bilateral fibrocystic breast changes Depression ([facility]) GERD (gastroesophageal reflux disease) Seasonal allergies STD (female) HISTORY PAST MEDICAL HISTORY SOCIAL HISTORY Past Medical History: Diagnosis Date Asthma ([facility]) Bilateral fibrocystic breast changes Depression ([facility]) Dysmenorrhea GERD (gastroesophageal reflux disease) Mixed [...] Arthritis Mother Lore Yan Diabetes Father Jonnathan Nicolekerman Hypertension Father Jonnathan Nicolekerman Stroke Father Jonnathan Nicolekerman No Known Problems Sister Heart failure Brother [...] to clinic for biopsy if needed due tovaginal itching., Documented by Kathy Geller LPN on behalf of: Abbe Altamirano DO documented in this encounterNOMS Healthcare History of Present illness Narrative 09-13-2023 Note Date & KrgiDiaoGjvbjnpl26-99-1650 History of Present illness Narrative* Slava Helms APRN-CNP - 09/13/2023 11:29 AM EST Pt left the waiting room at her scheduled appointment time. She had been inthe waiting room about 4minutes. She called the office [place]. PRINCESS Maier documented in this encounterMetroHealth Clinical Note 07-27-2022 Note Date & RlryZzlbKtdjukuz71-27-0757 NoteOPERATIVE NOTE OPERATION DATE: 07/27/2022 PREOPERATIVE DIAGNOSIS: Colorectal [...] recovery room in good condition. [facility]: [facility]-13-2022 Note Date & JljiXvdnAcvopaqs76-60-8010 NoteChief Complaint consultation for screening colonoscopy HPI Staff [...] colonoscopy; denies asa or NSAID use; no SBEprophylaxis; no fmhx of GI malignancy or IBD. no tobacco use. Review of Systems PHQ Score Initial Depression Screen Score: 0 ROS - Provider Constitutional: no fever, no sweats, no weight loss. Eyes: no glasses, no blurred vision, no visual loss. ENMT: no dentures, no hoarseness, no swallowing difficulties, no hearing loss, no ear infection(s),no nose bleeds. Cardiovascular: normal blood pressure, no [...] virus vaccine, inactivated - Not Given Patient RefusesZanesville City HospitalComment on above:Result Comment: Electronically Signed By: TARA GOVEA, Naty Garcia\Date and Time Signed: 07/13/22 13:08 EST Evaluation note Note Date & TypeNoteFacilityEvaluation note* Diagnosis No-show for appointment- Primary documented in this encounter [facility] Evaluation note Note Date & TypeNoteFacilityEvaluation noteNo assessment information available [facility] Work Phone: Evaluation note Note Date & TypeNoteFacilityEvaluation note* Diagnosis Vaginal itching Pruritus of genital organs documented in this encounter [facility] Evaluation note Note Date & TypeNoteFacilityEvaluation note* Diagnosis Well woman exam with routine gynecological exam Routine gynecological examination Breast cancer screening by mammogram Postmenopausal state Asymptomatic postmenopausal status (age-related) (natural) documented in this encounter [facility] Hospital Discharge instructions Note Date & TypeNoteFacilityHospital Discharge instructions Additional Instructions DISCHARGE INSTRUCTIONS FOR [...] the incision. PLEASE NOTIFY OUR OFFICE at [phone] if you: -Develop a fever of 101 [...] rate. FOLLOW UP -Call the office at [phone] for a follow up appointment 1week. * AFTER HOURS PHONE NUMBER [phone] *[facility] Work Phone: Summary Purpose Family History Relationship Condition Age at Onset Recorded Date/T payam father Cerebrovascular accident (CVA) Unknown Type 2 diabetes mellitusUnknownNot SpecifiedType 2 diabetes mellitusUnknown brotherSchizophreniaUnknownsisterMalignant neoplasm of breastUnknown Relationship Condition Age at Onset Recorded Date/T payam father Cerebrovascular accident (CVA) Unknown Type 2 diabetes mellitusUnknownmotherType 2 diabetes mellitusUnknownbrother SchizophreniaUnknownsisterMalignant neoplasm of breastUnknown Advance Directives Advance Directive Response Recorded Date/ Time Advance Directives No December 03 4:06pm Advance Directive Response Recorded Date/ Time Advance Directives No December 03 3:06pm Chief Complaint and Reason for Visit Chief Complaint macromastia Chief Complaint macromastia macromastia Chief Complaint Admit Date M54.41 R35.0 September 24, 2024 11:36am Chief Complaint Admit Date M54.41 R35.0 September 24, 2024 11:36am Productive cough, shortness of breath [facility] 2024 9:33am Additional Source Comments INFORMATION SOURCE (unrecogn ized section and content) DATE CREATED AUTHOR 08/05/2022 [facility] DATE CREATED AUTHOR AUTHOR'S ORGANIZ ATION 08/12/2022 [facility] DATE CREATED AUTHOR AUTHOR'S ORGANIZ ATION 09/14/2023 [facility] [employer] DATE CREATED AUTHOR AUTHOR'S ORGANIZ ATION 09/26/2024 [facility] DATE CREATED AUTHOR AUTHOR'S ORGANIZ ATION 11/06/2024 [facility] EPIC Care Teams (unrecognized sec tion and content) Team Status: Active Member Role Status Dates Loco Green MD Primary Care Provider Active Team Status: Inactive Member Role Status Dates Manuel Willoughby MD Attending Provider Active Start: January 18, 2024 End: January 17Misha Contreras Care ProviderActiveStart: January 18, 2024 End: January 18, 2024 Team Status: Inactive Member Role Status Dates Manuel Willoughby MD Attending Provider Active Start: February 01, 2024 End: January 31Misha Contreras Care ProviderActiveStart: February 01, 2024 End: February 01, 2024Team MemberRelationshipSpecialtyStart DateEnd Date Loco Green MD [address] [place] [address] PCP - [employer]12/12/22 Loco Green MD [address] [place] [address] PCP - GeneralInternal Medicine02/20/23Team MemberRelationshipSpecialtyStart Date End Date Loco Green MD [address] [place] [address] PCP - [employer]12/12/22 Loco Green MD [address] [place] [address] PCP - GeneralInternal Medicine02/20/23Team MemberRelationshipSpecialtyStart Date End Date Loco Green MD [address] [place] [address] PCP - [employer]12/12/22 Loco Green MD [address] [place] [address] PCP - GeneralInternal Medicine02/20/23Team MemberRelationshipSpecialtyStart Date End Date Loco Green MD [address] [place] [address] PCP - [facility]12/12/22 Loco Green MD [address] [place] [id number] PCP - [facility] Medicine02/20/23 Team Status: Inactive Member Role Status Dates Loco Green MD Primary Care Provide r, Attending Provider Active Start: September 24, 2024 End: September 24, 2024 Team Status: Inactive Member Role Status Dates Loco Green MD Primary Care Provider Active St art: October 21, 2024 End: October 21mandRicardo Gerardo ProviderActiveStart: October 21, 2024 End: October 21, 2024Team MemberRelationshipSpecialtyStart DateEnd Date Loco Green MD [address] [place] [address] PCP - [facility]/07/08 Loco Green MD [address] [place] [id number] [facility] - [facility]23Team MemberRelationshipSpecialtyStart Date End Date Loco Green MD [address] [place] [address] PCP - [facility] Loco Green MD [address] [place] [phone] PCP - GeneralInternal Medicine02/20/23Team MemberRelationshipSpecialtyStart Date End Date Slava Helms, ANIMAL DOCTOR-CYTOLOGY LABORATORY MANAGER [id number] [place] [address] APNPlastic Surgery10/14/23 Goals (unrecognized section and content) Goals may be documented in a n alternate sectionGoals may be documented in an alternate sectionGoals may be documented in an alternate section Reason for Visit (unrecogniz ed section and content) ReasonCommentsVaginal Itchinglump on labiaReasonCommentsWell Women Visit FOR RECORDS PERTAINING TO PATIENTS WHO ARE [...] BE BASED ON THE PRIMARY CLINICAL RECORDS. [facility] [employer] [facility]. provides no warranty or guarantee of the accuracy or completeness of information in this document.
== END 2025-07-09 15:03 | disposition home or self-care (01) ==
LOC: RAD 15:02
PROVIDERS: PCP Internal Medicine; Visit Provider Obstetrics & Gynecology
DX: M85.88 Other specified disorders of bone density and structure, other site (principal); Z78.0 Asymptomatic menopausal state; Z13.820 Encounter for screening for osteoporosis
CPT/HCPCS: 77080

== ENCOUNTER 2025-07-22 12:39 | Outpatient (OUT) | payer BC, SELFPAY ==
--- NOTE | 2025-07-22 12:44 | MM_ITS ---
Patient Name: PATRICK RIVERA MR#: [id number] : 1975 Exam Date: 07/22/2025 Ordering Doctor: DR RONY MONTOYA . RADIOLOGY REPORT PROCEDURE: MM TOMOSYNTHESIS DIAGNOSTIC LT COMPARISON: MM TOMOSYNTHESIS SCREENING BI, 12/04/2024. MM TOMOSYNTHESIS SCREENING BI, 12/01/2023. INDICATIONS: mass of left breast Calculator Name NCI Breast Cancer Risk Assessment Tool 5 Year Breast Cancer Risk 1.80% Lifetime Breast Cancer Risk 14.30% Personal Breast Cancer No Personal Ovarian Cancer No Treatments None Family Cancers Sister with breast cancer at age 50; Aunt-maternal with breast cancer at age 52; Grandmother-maternal with brain cancer at age 60. LOCATION: [facility] BREAST COMPOSITION: The breasts are heterogeneously dense, which may obscure small masses. FINDINGS: LEFT BREAST: Similar postsurgical scarring and architectural distortion is noted. There is no evidence of discrete mass. There are a few scattered calcifications along the periphery of the surgical site which are presumably dystrophic and are probably benign. DIAGNOSTIC CATEGORY 3--PROBABLY BENIGN FINDING. THE FOLLOWING FINDING(S) HAS A HIGH PROBABILITY OF A BENIGN ETIOLOGY: RECOMMENDATIONS: SHORT TERM FOLLOW-UP DIAGNOSTIC MAMMOGRAM LEFT BREAST IN 6 MONTHS. The patient is due for bilateral mammography in November of 2025. Dictated by: Theo Saini MD on 07/22/2025 at 13:21 Approved by: Theo Saini MD on 07/22/2025 at 13:32
--- OUTSIDE RECORDS SUMMARY | 2025-07-22 12:44 | XMS_ITS | CCD ---
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 Automatic Name Role Phone TARA, DR ALFONSO Admitting [...] Provider Loco Green MD Primary Care Provider Loco Green MD Attending Provider Loco Green Primary Care Unavailable Manuel Willoughby Admitting Unavailable Manuel Willoughby Attending Unavailable Loco Green Admitting Unavailable Loco Green Primary Care Unavailable Loco Green Attending Unavailable Loco Green Primary Care Unavailable Manuel Willoughby Admrui Unavailable Manuel Willoughby Attending Unavailable Loco Green MD Primary Care Provider [phone] Loco Green MD Attending Provider [phone] LOCO GREEN Attending Unavailable ABBE ALTAMIRANO Attending Unavailable ABBE ALTAMIRANO Attending Unavailable Loco Green MD Unavailable Loco Green MD Primary Care Provider Scooter [facility] Slava RiveraPaul Unavailable [phone] Allergies Allergy ClassificationReported Allergen(s)Allergy TypeDate of OnsetReaction(s) Facility (1 source)No Known Medication Allergies; Translations: [No Known Medication Allergies]Propensity to adverse reactions (disorder)[facility] Repository (12 sources)montelukastDrug Xuhhoyz81-33-5375[facility] (5 sources)Sulfamethoxazole / TrimethoprimDrug Fmowuxo49-34-8599[facility] Medications Current Medications MedicationDrug Class(es)DatesSig (Normalized)Sig (Original)albuterol 0.83 mg/ml inhalation solution (10 sources)beta2-Adrenergic Agonistalbuterol (2.5 MG/3ML) 0.083% nebulizer solution Take 2.5 mg by nebulization every 6 (six) hours ifneeded for wheezing Activeestrogens, conjugated (long term) 0.3 mg oral tablet (8 sources)EstrogenStart: 03-18-2024 End: 30-08-1792upys 1 tablet by mouth once dailyestrogens, conjugated, (Premarin) 0.3 MG tablet Indications: Hormone imbalance Take 1 tablet (0.3 mg) by mouth Daily Take daily for 21 days then do not take for 7 days. 90 tablet 3 11/11/2024 11/06/2025 ActiveFluticasone Propion-Salmeterol (11 sources)Corticosteroid, beta2-Adrenergic AgonistStart: 36-62-7474Daswaeqmjyl Propion-Salmeterol (Wixela Inhub) 100-50 mcg/dose blister with device Active 1 INH INHALATION Twice daily October 21, 2024 12:00amStart: 55-99-3507Pqfnqyevbuh- Salmeterol (Wixela Inhub) 250-50 MCG/ACT aerosol powder [...] mg oral tablet (1 source)Nonsteroidal Anti-inflammatory DrugStart: 84-50-0370rmqt 1 tablet by mouth once daily as needed for painmeloxicam (Mobic) 15 MG tablet Indications: Chronic midline low back pain without sciatica Take 1 tablet (15 mg) by mouth Daily as needed for moderate pain 30 tablet 5 11/26/2024 Active methylPREDNISolone 4 mg oral tablet (1 source)CorticosteroidStart: 05-86-4823yzfl 1 tablet by mouth once Methylprednisolone (Medrol (Go)) 4 mg tablets,dose pack Active 0 PO per package directions October 21, 2024 12:00am PO PER PKG DIRomeprazole 20 mg delayed release oral capsule (19 sources)Proton Pump InhibitorStart: 33-13-3166nrfv 1 capsule by mouth before mealtimeomeprazole (PriLOSEC) [address] capsule Indications: Gastroesophageal reflux disease without esophagitis Take 1 capsule (20 mg) by mouth in the morning. Take before meals. Do not crush or chew.. 90 capsule 2 09/02/2024 Active End: 00-90-0947pcur 1 capsule by mouth every twenty-four hours [...] Nucleoside Analog DNA Polymerase InhibitorStart: 01-18-2024 End: 65-99-1205hnql 1 tablet by mouth twice daily as neededvalACYclovir (Valtrex) 500 MG tablet Indications: Herpes simplex virus (HSV) infection Take 1 tablet (500 mg) by mouth 2 (two) times a day as needed (cold sores) 14 tablet 5 04/09/2024 Active Completed/Discontinued Medications MedicationDrug Class(es)DatesSig (Normalized)Sig (Original)acetaminophen 325 mg / HYDROcodone bitartrate 5 mg oral tablet (3 sources)Opioid AgonistStart: 02-01-2024 End: 94-20-8075sgqw 2 tablets by mouth every six hours as needed for pain Hydrocodone-Acetaminophen 5-325 mg tablet Discontinued 2 TAB PO Q6H as needed for pain 12 03February 01, 2024 October 21, 2024 9:47amgabapentin 300 mg oral capsule (3 sources)Anti-epileptic AgentStart: 02-01-2024 End: 23-96-1239xhou 1 capsule by mouth three times dailyGabapentin 300 mg capsule Discontinued 300 MG PO Three times daily 12 06February 01, 2024 12:00am October 21, 2024 9:47am Problems Active Problems Problem ClassificationProblemDateDocumented DateEpisodic/ChronicAnxiety disorders (7 sources)Generalized anxiety disorder; Translations: [Generalized anxiety disorder]Onset: 261943-93-8464XykreooJjjxpl (14 sources)Unspecified asthma, uncomplicated; Translations: [Asthma]Onset: 543520-07-1382SndegheMvdjuohubo disorders (14 sources)Gastro-esophageal reflux disease without esophagitis; Translations: [Gastroesophageal reflux disease]Onset: 810674-51-6374CattohsAjdbktuwgimqo symptoms and ill-defined conditions (12 sources)Incontinence; Translations: [Mixed incontinence]Onset: 11-28-2018 46-07-6752TwskivpHjgtmwesufghk symptoms and ill-defined conditions (1 source)Frequency of micturition; Translations: [Frequency of micturition] Onset: 59-22-0593OwstldyiGaxaqnycnbtzn and screening for infectious disease (1 source)Encounter for screening for human papillomavirus (HPV); Translations: [ENC SCREENING HUMAN PAPILLOMAVIRUS]Onset: 79-49-1709NhanbkkpOsadepycnemv breast conditions (12 sources)Fibrocystic disease of breast; Translations: [Diffuse cystic mastopathy of unspecified breast]Onset: 191219-12-3169DqhjczsSezkqosjpctl breast conditions (4 sources)Large breast; Translations: [Hypertrophy of breast]Onset: 02-01-2024 57-76-4615TgqpziegIdkro female genital disorders (2 sources)Pruritus of vagina; Translations: [Other specified noninflammatory disorders of vagina]24-39-2100JhoiahgsXsoeb inflammatory condition of skin (12 sources)Seborrheic psoriasis; Translations: [Other psoriasis]Onset: 824517-96-5790UxiphvvNycvn screening for suspected conditions (not mental disorders or infectious disease) (14 sources)Encounter for screening for malignant neoplasm of colon; Translations: [Encounter for screening formalignant neoplasm of cervix]Onset: 43-18-4804XoymaxqgXlpey upper respiratory disease (12 sources)Seasonal allergic rhinitis; Translations: [Other seasonal allergic rhinitis]Onset: 194180-17-0912GcsvqdqAowuotcd codes; unclassified (1 source)Acquired absence of both cervix and uterus; Translations: [ACQUIRED ABSENCE BOTH CERVIX AND UTERUS]Onset: 37-96-2119JfvurlzrFuvwudwl codes; unclassified (1 source)Did not attend; Translations: [No-show for appointment]09-13-2023 EpisodicResidual codes; unclassified (2 sources)Postmenopausal state; Translations: [Asymptomatic menopausal state] 43-98-6016GcypavdjCveixfthe and history of mental health and substance abuse codes (1 source)Personal history of nicotine dependence; Translations: [PERSONAL HISTORY OF NICOTINE DEPEND]Onset: 55-16-1333YvubxlywDjsylmixtdk; intervertebral disc disorders; other back problems (1 source)Lumbago with sciatica, right side; Translations: [Lumbago with sciatica, right side]Onset: 48-25-1604QxpjhkjkYlvgastwytsq (1 source)CONTACT W/AND (SUSP) EXPOS COVID-19; Translations: [CONTACT W/AND (SUSP) EXPOS COVID-19]Onset: 17-44-1757Zzayzimzbijs (1 source)Patient's noncompliance with other medical treatment and regimen due to unspecified reason; Translations: [Patient's noncompliance with other medical treatment and regimen due to unspecified reason]Onset: 09-13-2023 Past or Other Problems Problem ClassificationProblemDateDocumented DateEpisodic/ChronicMenstrual disorders (20 sources)Dysmenorrhea; Translations: [Dysmenorrhea, unspecified]Onset: 11-28-2018 Resolved: 233585-50-4041NckmibyHcmrjgwtckkjp mental health disorders (12 sources)Abnormal sexual function; Translations: [Sexual dysfunction, unspecified]Onset: 293853-97-9875BsuzgmqzLrscv female genital disorders (12 sources)Premenstrual tension syndrome; Translations: [Premenstrual tension syndrome]Onset: 11-28-2018 Resolved: 579702-57-3293GutqnmxLqesa gastrointestinal disorders (12 sources)Chronic constipation; Translations: [Other constipation]Onset: 02-27-2020 Resolved: 817965-48-1721UkqxpzqcCoixkzpl codes; unclassified (1 source)Family history of malignant neoplasm of breast; Translations: [FAMILY HX MALIG NEOPLASM OF BREAST]Onset: 85-71-9379YqctkecaSbqiigyr codes; unclassified (1 source)Family history of malignant neoplasm of other organs or systems; Translations: [FAM HX MALIG NEOPLASM OTH ORGN/SYS]Onset: 31-76-1893Zwvrfrsa Residual codes; unclassified (12 sources)Menopause present; Translations: [Asymptomatic menopausal state] Onset: 11-28-2018 Resolved: 271888-93-9945BoqbemydEctpw infection (12 sources)Herpes simplex; Translations: [Herpesviral infection, unspecified] Onset: 511608-73-3502Vpgopsrb Results Test NameValueInterpretationReference RangeFacilityMM TOMOSYNTHESIS SCREENING BI on 21-80-5130[place] [address] Mammography Report Signed Patient: HENRIETTA RIVERA MR#: [id number] : 1975 Acct:[id number] Age/Sex: 49 / F ADM Date: 12/04/24 Loc: MAMMO Attending Dr: Abbe Altamirano D.O. Ordering Physician: Abbe Altamirano D.O. Results: Date of Service: 12/04/24 Follow Up: Procedure(s): MM tomosynthesis screening BI Accession Number(s): [id number] cc: Abbe Altamirano D.O.; LOCO GREEN Patient Name: HENRIETTA RIVERA MR#: [id number] : 1975 Exam Date: 12/04/2024 Ordering Doctor: [...] brain cancer at age 58. LOCATION: [facility] BREAST COMPOSITION: The breasts are [...] Signed By: 12/04/24 0841 DD/ 0840 TD/TT: Regional Extension Service Specialist:TBHRadiology, Radiologist, - 12/04/2024 [place] [address] Mammography Report Signed Patient: HENRIETTA RIVERA MR#: [id number] : 1975 Acct:[id number] Age/Sex: 49 / F ADM Date: 12/04/24 Loc: MAMMO Attending Dr: Abbe Altamirano D.O. Ordering Physician: Abbe Altamirano D.O. Results: Date of Service: 12/04/24 Follow Up: Procedure(s): MM tomosynthesis screening BI Accession Number(s): [id number] cc: Abbe Altamirano D.O.; PETERLOCO Patient Name: HENRIETTA RIVERA MR#: [id number] : 1975 Exam Date: 12/04/2024 Ordering Doctor: [...] brain cancer at age 58. LOCATION: [facility] BREAST COMPOSITION: The breasts are [...] Signed By: 12/04/24 0841 DD/ 0840 TD/TT: Regional Extension Service Specialist: ELISHA HealthcareRadiology Study observation (narrative)[facility] TOMOSYNTHESIS SCREENING BIOrdered By: Radiologist Radiology on 30-80-3965WOFFUniversity of Missouri Health Care Work Phone: bacteria identified Cx Nom (U)on 67-71-6831CALIUniversity of Missouri Health CareNo Panel Informationon 16-64-2157Kllylbsqq at: - [facility] [address] [id number] Chief Librarian Extension Department: Hossein Navarro PhD, Phone: [phone] HealthcareUr Microscopic Reflexon 70-64-4029Aeuotikc LM.HPF (Urine sed) [#/Area]None seenNone seen/FewNOMS HealthcareCasts [...] 1.0 mg/dLNOMS HealthcareUrine Culture Clean Catch Reflexon 31-67-2660Povtdzkx identified Cx Nom (U)No growthNOMS HealthcareUrine cultureon 27-97-0126Zfyyprfg identified Cx Nom (U)Final reportNOMS HealthcareAppearance of UrineOrdered By: Loco Green on 81-78-0940Ymsfgrchjt (U)Urine appearanceCleDelaware County Hospital Bacteria [Presence] in Urine by AutomatedOrdered By: Loco Green on 09-24-2024 Bacteria Auto Ql (U)Bacteria [Presence] in Urine by AutomatedNone SeenCleveland Clinic Akron General Lodi HospitalBilirubin Test strip Ql (U)Ordered By: Loco Green on 73-53-2620Usyirrxef Ql (U)Bilirubin.total [Presence] in Urine by Test strip NegativeCleveland Clinic Ak[facility] General Lodi HospitalColor Auto (U)Ordered By: Loco Green on 95-81-5610Wjchh (U)Color of Urine by AutoYellowCleveland Clinic Akron General Lodi HospitalDipstick and Microscopicon 50-34-5450Fcyuxwtnet (U)ClearNormalClearThe [facility] Physician GroupComment on above:Order Comment: Name Collection Type:: Clean-Voided MidstreamPerformed By: #### ADDONUAPLUS #### [facility] [address] [place] [address] USABacteria,UrineNone SeenNormalNone SeenWest Boca [facility] Center Physician GroupComment on above:Order Comment: Name Collection Type:: Clean- Voided MidstreamPerformed By: #### ADDONUAPLUS #### [facility] [address] [place] [address] USABilirubin,UrineNegativeNormalNegativeWest Boca [facility] Center Physician GroupComment on above:Order Comment: Name Collection Type:: Clean- Voided MidstreamPerformed By: #### ADDONUAPLUS #### [facility] [address] [place] [address] USAColor (U)Light-YellowNormalYellowWest Boca Medical Center Physician GroupComment on above:Order Comment: Name Collection Type:: Clean-Voided MidstreamPerformed By: #### ADDONUAPLUS #### [facility] [address] [place] [address] USAGlucose Ql (U)NormalNormalNormalThLost Rivers Medical Center Physician GroupComment on above:Order Comment: Name Collection Type:: Clean-Voided MidstreamPerformed By: #### ADDONUAPLUS #### [facility] [address] [place] [address] USAHyaline Casts,UrineNoneNormal0-8The [facility] Physician GroupComment on above:Order Comment: Name Collection Type:: Clean-Voided MidstreamPerformed By: #### ADDONUAPLUS #### [place] [address] USAKetones Ql (U)NegativeNormalNegativeThe [facility] Physician GroupComment on above:Order Comment: Name Collection Type:: Clean- Voided MidstreamPerformed By: #### ADDONUAPLUS #### [place] [address] USALeukocyte esterase Test strip Ql (U)NegativeNormalNegative The [facility] Physician GroupComment on above:Order Comment: Name Collection Type:: Clean-Voided MidstreamPerformed By: #### ADDONUAPLUS #### [place] [address] USAMucus,UrineRareNormalThe [facility] Physician GroupComment on above:Order Comment: Name Collection Type:: Clean-Voided MidstreamResult Comment: PERFORMED BY: [place] [address] PATHOLOGIST COMMUTATOR ASSEMBLER JINA TOWNSEND M.D.Performed By: #### ADDONUAPLUS #### [place] [address] USANitrite,UrineNegativeNormalNegativeThe [facility] Physician GroupComment on above:Order Comment: Name Collection Type:: Clean-Voided MidstreamPerformed By: #### ADDONUAPLUS #### [place] [address] USAOccult Blood,UrineTraceHighNegativeThe [facility] Physician GroupComment on above:Order Comment: Name Collection Type:: Clean-Voided MidstreamPerformed By: #### ADDONUAPLUS #### [place] [address] USApH (U)5.0 [pH]Normal5.0-9.0The [facility] Comment on above:Order Comment: Name Collection Type:: Clean-Voided Midstream Performed By: #### ADDONUAPLUS #### [place] [address] USAProtein,UrineNegativeNormalNegativeThe [facility] Physician GroupComment on above:Order Comment: Name Collection Type:: Clean-Voided MidstreamPerformed By: #### ADDONUAPLUS #### [place] [address] USARBC,Olnmt9-3Doveep7-4Oky [facility] Physician GroupComment on above:Order Comment: Name Collection Type:: Clean-Voided MidstreamPerformed By: #### ADDONUAPLUS #### [place] [address] USASpecificy Ramsay,Urine1.817Chanbq7.001-1.030The [facility] Physician GroupComment on above:Order Comment: Name Collection Type:: Clean- Voided MidstreamPerformed By: #### ADDONUAPLUS #### [place] [address] USASquamous Epithelial Cell,Ifszq6-1Qnaq9-1Yak [facility] Physician GroupComment on above:Order Comment: Name Collection Type:: Clean- Voided MidstreamPerformed By: #### ADDONUAPLUS #### [place] [address] USAUrobilinogen,UrineNormalNormalNormalThe [facility] Physician GroupComment on above:Order Comment: Name Collection Type:: Clean- Voided MidstreamPerformed By: #### ADDONUAPLUS #### [place] [address] USAWBC,Tdrwi6-0Kdsdlb1-9Sdm [facility] Physician GroupComment on above:Order Comment: Name Collection Type:: Clean-Voided MidstreamPerformed By: #### ADDONUAPLUS #### [place] [address] USAEpithelial cells.squamous [#/area] in Urine sediment by Automated countOrdered By: Loco Green on 26-78-1788Eocvxkskrm cells.squamous Auto (Urine sed) [#/Area]Epithelial cells.squamous [#/area] in Urine sediment by Automated countHigh0-2FUniversity Hospitals Geneva Medical CenterErythrocytes [#/area] in Urine sediment by Automated countOrdered By: Loco Green on 13-28-5190BVU Auto (Urine sed) [#/Area]Erythrocytes [#/area] in Urine sediment by Automated count 0-4FUniversity Hospitals Geneva Medical CenterGlucose [Mass/volume] in Urine by Test strip Ordered By: Loco Green on 80-31-5532Obqcxxz Test strip (U) [Mass/Vol]Glucose [Mass/volume] in Urine by Test stripNormParkview Health Hemoglobin Test strip Ql (U)Ordered By: Loco Green on 07-33-5941Njpmvpcjik Ql (U)Hemoglobin [Presence] in Urine by Test stripHighNegOhio Valley Surgical HospitalHyaline casts [#/area] in Urine sediment by Automated countOrdered By: Loco Green on 54-21-3655Orrojud casts Auto (Urine sed) [#/Area]Hyaline casts [#/area] in Urine sediment by Automated count0-8[facility] HospitalKetones Test strip Ql (U)Ordered By: Loco Green on 75-46-3474Fovxals Ql (U)Ketones [Presence] in Urine by Test stripNegOhio Valley Surgical HospitalLeukocyte esterase [Presence] in Urine by Test stripOrdered By: Loco Green on 23-02-1478Fzmarsxlb esterase Test strip Ql (U)Leukocyte esterase [Presence] in Urine by Test stripNegOhio Valley Surgical Hospital Leukocytes [#/area] in Urine sediment by Automated countOrdered By: Loco Green on 29-38-2555WBE Auto (Urine sed) [#/Area]Leukocytes [#/area] in Urine sediment by Automated count0-4FUniversity Hospitals Geneva Medical CenterMucus [Presence] in Urine by AutomatedOrdered By: Loco Green on 87-11-1995Fnrqy Auto Ql (U)Mucus [Presence] in Urine by AutomatedCleveland Clinic Akron General Lodi HospitalNitrite Test strip Ql (U)Ordered By: Loco Green on 47-12-4167Bddfxli Ql (U)Nitrite [Presence] in Urine by Test stripNegOhio Valley Surgical Hospital Protein Test strip (U) [Mass/Vol]Ordered By: Loco Green on 15-17-7771Yxisgys (U) [Mass/Vol]Protein [Mass/volume] in Urine by Test stripNegUniversity Hospitals Samaritan Medical Centerpecific gravity Test strip (U) [Rel density]Ordered By: Loco Green on 93-37-5067Jdqbsrdy gravity (U) [Rel density]Specific gravity of Urine by Test strip1.001-1.030[facility] HospitalUrine Cultureon 94-03-9809Ihumzjvy identified Cx Nom (U)75,000 colonies/ml mixed bacterial skin contaminants 2 Days PERFORMED BY: [facility] [address] [place] [address] PATHOLOGIST COMMUTATOR ASSEMBLER JINA TOWNSEND M.D.NormalThe [facility] Physician GroupComment on above: Performed By: #### CUU #### [facility] [address] [place] [address] USAUrine cultureOrdered By: Loco Green on 42-89-8591Amchbmqz identified Cx Nom (U)Urine cultureCleveland Clinic Akron General Lodi HospitalUrobilinogen Test strip (U) [Mass/Vol]Ordered By: Loco Green on 33-52-8618Uonzlxrklkuk (U) [Mass/Vol]Urobilinogen [Mass/volume] in Urine by Test stripNormalCleveland Clinic [facility] General Lodi HospitalpH Test strip (U)Ordered By: Loco Green on 09-97-4792wR (U)pH of Urine by Test strip5.0-9.0[facility] HospitalIGP,APTIMA HPV,AGE GDLNon 36-79-0562ZMR GDLN ACOG TESTINGNote.NOMS HealthcareComment on above:TESTS RESULT FLAG UNITS REF RANGE LAB Clinician Provided Cytology Information Source.............Vagina No. of containers..01 ThinPrep Vial Age Algo ACOG Heavenly... FLAG LEGEND: L-Low Normal,H-High Normal,LL-Alert Low,HH-Alert High <-Panic Low,>-Panic High,A-Abnormal,AA-Critical Abnormal Performed at: 01 =[address] [address] Sintia Dahl MD, HPV APTIMANegativeNegativeNOMS HealthcareComment on above:This nucleic acid amplification test detects fourteen high- risk HPV types (16,18,31,33,35,39,45,51,52,56,58,59,66,68) without differentiation. Performed at: =[facility] [id number] Chief Librarian Extension Department: Sintia Dahl MD, Phone: [phone] Performed at: [facility] [id number] Chief Librarian Extension Department: Sintia Dahl MD, Phone: [phone] IGP, APTIMA HPV, RFX 16/18,45Note.NOMS HealthcareComment on above:TESTS RESULT FLAG UNITS REF RANGE LAB DIAGNOSIS: 02 NEGATIVE FOR INTRAEPITHELIAL LESION OR MALIGNANCY. THIS SPECIMEN WAS RESCREENED PART OF OUR [facility] CONSULTANT PROGRAM. Specimen adequacy: 02 Satisfactory for evaluation. Performed by: Darien Iqbal Gas Maker Helper ([facility]) QC reviewed by: Darien Mercedes Gas Maker Helper ([facility]) . 02 Note: Note 02 The Pap [...] <-Panic Low,>-Panic High,A-Abnormal,AA-Critical Abnormal Performed at: [address] [address] Sintia Dahl MD, SPATULA-ALONE VAGINA CLINISYNCNOCenterpoint Medical CenterLo 83-61-7782BExsdesks: [id number] Received: 02/01/241258 Status: CLAUDE Verduzco Num: [id number] Spec Type: Surgical Subm Dr: Manuel Willoughby MD Tissues: A Breast Reduction - Mammoplasty (RT) B Breast Reduction - Mammoplasty (LT) Procedures: HE/4, Gross/Micro L4/2 Age/ Patient Sex Location Account Attending Physician Henrietta Rivera 48/F [place] [id number] Manuel Willoughby MD SPEC NUM: [id number] RECD: 02/01/24 STATUS: WENDYAlexi VERDUZCO NUM: [id number] BRAYAN: 02/01/[address]: Manuel Willoughby MD ENTERED: 02/01/24 [facility] DR: SPEC TYPE: Surgical DEPT: S ORDERED: [...] No discrete masses or lesions are present. Pump Erector Helper sections are submitted in A1?A2. Specimen: [id number] Received: 02/01/24 Status: CLAUDE Luba Num: [id number] Spec Type: Surgical Subm Dr: Manuel Willoughby MD Tissues: A Breast Reduction - Mammoplasty (RT) B Breast Reduction - Mammoplasty (LT) Procedures: YVON/Julia Silverman/Manuel L4/2 Patient: Henrietta Rivera [id number] (Continued) Specimen: [id number] Received: 02/01/24 (Continued) Julia Description (Continued) Signed (signature on file) Neena Esposito MD 02/03/24 1739 Specimen: [id number] Received: 02/01/24 Status: CLAUDE Menjivartiffanie Num: [id number] Spec Type: Surgical Subm Dr: Manuel Willoughby MD Tissues: A Breast Reduction - Mammoplasty (RT) B Breast Reduction - Mammoplasty (LT) Procedures: Julia MELÉNDEZ/Manuel L4/2 Patient: Henrietta Rivera [id number] (Continued) Specimen: [id number] Received: 02/01/24 (Continued) Gross Description (Continued) Time [...] No discrete masses or lesions are present. Pump Erector Helper sections are submitted in B1?B2. Time of collection: 02/01/2024 at 1143 Time placed in formalin: 02/01/2024 at 1228 Placed in 10% neutral buffered formalin Time grossed: 02/01/2024 at 1432 TW CPT Codes 33095E7 Specimen: [id number] Received: 02/01/24 Status: CLAUDE Verduzco Num: [id number] Spec Type: Surgical Subm Dr: Manuel Willoughby MD Tissues: A Breast Reduction - Mammoplasty (RT) B Breast Reduction - Mammoplasty (LT) Procedures: HE/Andra, Gross/Micro L4/2 Patient: Henrietta Rivera [id number] (Continued) Signed (signature on file) Matthew-Erwin Esposito MD (more content not included)...[facility] Physician GroupECG 12 lead ECGon 47-61-6655SVR 12 lead ECGOHIO STATE UNIV[facility] [place] [address] Electrocardiograph Report Signed Patient: Henrietta Rivera MR#: [id number] : 1975 Acct:[id number] Age/Sex: 48 / F ADM Date: 01/18/24 Loc: Room: Type: [facility] Attending Dr: Manuel Willoughby MD [...] Signed By Alec Garcia MD 0 01/19/[address] [place] [address] Physician GroupMM TOMOSYNTHESIS SCREENING BIon 48-36-3951[place] [address] Mammography Report Signed Patient: HENRIETTA RIVERA MR#: [id number] : 1975 Acct:[id number] Age/Sex: 48 / F ADM Date: 12/01/23 Loc: MAMMO Attending Dr: Abbe Altamirano D.O. Ordering Physician: Abbe Altamirano D.O. Results: Date of Service: 12/01/23 Follow Up: Procedure(s): MM tomosynthesis screening BI Accession Number(s): [id number] cc: Abbe Altamirano D.O.; LOCO GREEN Patient Name: HENRIETTA RIVERA MR#: [id number] : 1975 Exam Date: 12/01/2023 Ordering Doctor: [...] brain cancer at age 58. LOCATION: [facility] BREAST COMPOSITION: The breasts are [...] Signed By: 12/01/23 1528 DD/ 1527 TD/TT: Regional Extension Service Specialist:TBHRadiology, Radiologist, - 12/01/2023 [address] [place] [id number] Mammography Report Signed Patient: HENRIETTA RIVERA MR#: [id number] : 1975 Acct:[id number] Age/Sex: 48 / F ADM Date: 12/01/23 Loc: MAMMO Attending Dr: Abbe Altamirano D.O. Ordering Physician: Abbe Altamirano D.O. Results: Date of Service: 12/01/23 Follow Up: Procedure(s): MM tomosynthesis screening BI Accession Number(s): [id number] cc: Abbe Altamirano D.O.; LOCO GREEN Patient Name: HENRIETTA RIVERA MR#: [id number] : 1975 Exam Date: 12/01/2023 Ordering Doctor: [...] brain cancer at age 58. LOCATION: [facility] BREAST COMPOSITION: The breasts are [...] Signed By: 12/01/23 1528 DD/ 1527 TD/TT: Regional Extension Service Specialist: [facility]OSPITALKatina [facility] West CampusRadiology Study observation (narrative)[facility] TOMOSYNTHESIS SCREENING BIOrdered By: Radiologist Radiology on 27-03-1582DHNM Redeemr Work Phone: Progress Noteson 91-05-4716Zuidshmocdskp Authentication Interface Message TextPt left the waiting room at her scheduled appointment time. She had been inthe waiting room about 4 minutes. She called the office [place] and got very nervous. Slava Helms APRNMetroHealth Cleveland Heights Medical Center SystemNo Panel Informationon 42-41-4115[place] [address] Ultrasound Report Signed Patient: HENRIETTA RIVERA MR#: [id number] : 1975 Acct:[id number] Age/Sex: 48 / F ADM Date: 08/16/23 Loc: US Attending Dr: Abbe Altamirano D.O. Ordering Physician: Abbe Altamirano D.O. Date of Service: 08/16/23 Procedure(s): US breast RT complete Accession Number(s): [id number] cc: Abbe Altamirano D.O.; LOCO GREEN Patient Name: HENRIETTA RIVERA MR#: [id number] : 1975 Exam Date: 08/16/2023 Ordering Doctor: [...] Signed By: 08/17/23 1515 DD/ 1457 TD/TT: Regional Extension Service Specialist:Krysta Stroud InformationOrdered By: Radiologist Radiology on 94-26-7831TMIH Redeemr Work Phone: us BREAST RT COMPLETEon 61-91-4396Qyqscpqoj, MD Iam - 08/17/2023 [place] [address] Ultrasound Report Signed Patient: HENRIETTA RIVERA MR#: [id number] : 1975 Acct:[id number] Age/Sex: 48 / F ADM Date: 08/16/23 Loc: US Attending Dr: Abbe Altamirano D.O. Ordering Physician: Abbe Altamirano D.O. Date of Service: 08/16/23 Procedure(s): US breast RT complete Accession Number(s): [id number] cc: Abbe Altamirano D.O.; LOCO GREEN Patient Name: HENRIETTA RIVERA MR#: [id number] : 1975 Exam Date: 08/16/2023 Ordering Doctor: [...] Signed By: 08/17/23 1515 DD/ 1457 TD/TT: Regional Extension Service Specialist: ELISHA HealthcareRadiology, Radiologist, MD - 10/18/2023 [place] [address] Ultrasound Report Signed Patient: HENRIETTA RIVERA MR#: [id number] : 1975 Acct:[id number] Age/Sex: 48 / F ADM Date: 08/16/23 Loc: US Attending Dr: Abbe Altamirano D.O. Ordering Physician: Abbe Altamiarno D.O. Date of Service: 08/16/23 Procedure(s): US breast RT complete Accession Number(s): [id number] cc: Abbe Altamirano D.O.; LOCO GREEN Patient Name: HENRIETTA RIVERA MR#: [id number] : 1975 Exam Date: 08/16/2023 Ordering Doctor: [...] Signed By: 08/17/23 1515 DD/ 1457 TD/TT: Regional Extension Service Specialist: ELISHA Lezama Panel Informationon 70-35-5364Cifrsuhpp Study observation (narrative)[facility] CareCytology Cervical or vaginal smear or scraping study Ordered By: Edwige Sullivan on 71-43-7517AKBZ HealthcareOutside Colonoscopyon 23-59-6396Dcevlol [id number]#1.00CD:127 [facility] HospitalReminderson 57-94-0323Ccguljlja From: Carlie Mack LPN To: N - Clinical; Sent: 07/28/2022 11:15:46 EST Show up: 06/27/2032 07:00:00 EST Subject: colonoscopy recall Due Date/Time: 07/27/2032 07:00:00 EST Reminder/Recall Patient is due for screening colonoscopy 07/27/2032.[facility] HospitalLab Reportson 55-94-2707Lou Reports [id number]#1.00CD:127NormalCleveland Clinic Union HospitalCovid-19 PCR (CVDTB)on 69-25-6722IBUR-CoV-2 (COVID-19) RNA NICHELLE+probe Ql (Unsp spec)Not detectedNormalNOT DETECTEDThe [facility] Medical CenterComment on above: Result Comment: When [...] for this test is supported by the Retail Area Manager of Health and Human Service's declaration that [...] longer be used).Performed By: #### CVDTBH #### [facility] [address] [place] [address] Dr. Charisse Carvajal for Procedure/Surgeryon 32-77-9686Uefutue for Procedure/[id number]#1.00CD:[address] [place], [place] [address]Facesheeton 40-55-1334Kzfexpziw [id number]#1.00CD:[address] [place], [place] [address]Pre-Certification Formon 44-73-3737Iku-Certification Form [id number]#1.00CD:[address] [place], [place] [address]Physician Referralon 86-34-9489Aldkkptnj Referral [id number]#1.00CD:[address] [place], [place] [address]PAP ACOG PANEL 2: 30 to 65on 06-23-2022..NormalChillicothe Va Medical Center Comment on above:Result Comment: Performed at: WBPerformed By: #### [id number] #### [facility] [address] [place] [address] Dr. Charisse EspositoAge Gdln ACOG Esfkhnk49-04CqeswjTxbBrown Memorial HospitalComment on above:Performed By: #### [id number] #### [facility] [address] [place] [address] Dr. Charisse EspositoDIAGNOSIS:CommentKing's Daughters Medical Center OhioComment on above: Result Comment: NEGATIVE FOR INTRAEPITHELIAL LESION OR MALIGNANCY. Performed at: WBPerformed By: #### [id number] #### [facility] [address] [place] [address] Dr. Charisse Valdez AptimaNegativeNormalNegativeRegional Medical Center on above:Result Comment: This nucleic acid amplification test detects fourteen high-risk HPV types (16,18,31,33,35,39,45,51,52,56,58,59,66,68) without differentiation. Performed at: =GPerformed By: #### [id number] #### [facility] [address] [place] [address] Dr. Charisse Valdez Genotype ReflexCommentRiverside Methodist Hospital on above:Result Comment: Criteria not met, HPV Genotype not performed. Performed at: WBPerformed By: #### [id number] #### [facility] [address] [place] [address] Dr. Charisse EspositoMethodology:CommentRiverside Methodist Hospital on above: Result Comment: This liquid based ThinPrep(R) pap test was screened with the use of an image guided system. Performed at: WBPerformed By: #### [id number] #### [facility] [address] [place] [address] Dr. Charisse EspositoNote:CommentNoMercy Health St. [facility] on above:Result Comment: The Pap smear is a screening test designed to aid in the detection of premalignant and malignant conditions of the uterine cervix. It is not a diagnostic procedure and should not be used as the sole means of detecting cervical cancer. Both false-positive and false-negative reports do occur. . Performed at: WBPerformed By: #### [id number] #### [facility] [address] [place] [address] Dr. Charisse EspositoPerformed by:CommentNoMercy Health St. Elizabeth Youngstown Hospital on above: Result Comment: Luís Chaudhari, Gas Maker Helper (ASCP) Performed at: WBPerformed By: #### [id number] #### [facility] [address] [place] [address] Dr. Charisse EspositoSpecimen adequacy:CommentRiverside Methodist Hospital on above:Result Comment: Satisfactory for evaluation. No endocervical component is identified. Performed at: WBPerformed By: #### [id number] #### [facility] [address] [address] [address] Charisse Allen Referralon 10-51-9572Ddsiaajoz Referral [id number]#1.00CD:127[facility] Ment[facility] HospitalMG MAMM SCREEN 3D JOE CADon 06-05-4572GI MAMM SCREEN 3D JOE CADPatient: HENRIETTA RIVERA Exam Date: 11/12/2021 : 1975 Gender:F Ordering : DR LOCO GREEN Admission #: [id number] Family : Order #: [id number] CLICK HERE TO VIEW EXAM RADIOLOGY REPORT [...] brain cancer at age 58. LOCATION: [facility] BREAST COMPOSITION: Heterogeneously dense,which may [...] by: Kendall Charles MD on 11/12/2021 at 11:59[facility] [place] Vital Signs Date TimeVital SignValuePerforming LbxhxvatiDvesbmaj26-20-5639 09:43-0400Body xfumwr022.02 Quinn Green MD Work Phone: [facility]03-10-2025 09:43-0400 Body mass index (BMI) [Ratio]28.6 kg/x2VklaeyLoco Green MD Work Phone: [address] [place], [place] 5315103-10-2025 09:43-0400 Body lrwhsfuhrmv82.1 [degF]Loco Green MD Work Phone: [phone] [place], [place] 1480203-10-2025 09:43-0400 Body emujyq67.31 kgLoco Green MD Work Phone: [phone]03-10-2025 09:43-0400 Diastolic blood umcrzljy63 mm[Hg]Loco Green MD Work Phone: [phone]03-10-2025 09:43-0400 Heart kbos079 /minLoco Green MD Work Phone: [phone])[address]03-10-2025 09:43-0400 Respiratory rate14 /minLoco Green MD Work Phone: [phone]03-10-2025 09:43-0400 SaO2% (BldA) [Mass fraction]96 %Loco Green MD Work Phone: [address] [place], [place] 5315103-10-2025 09:43-0400 Systolic blood xaavoeao862 mm[Hg]Loco Green MD Work Phone: [address] [place], [place] 5315111-11-2024 11:30-0500 Body mass index (BMI) [Ratio]27.53 kg/i5Ugtxc Evelia DO Work Phone: [facility] CareItshvtxnfd51-80-9472 11:30-0500Body .76 kgCorey Evelia DO Work Phone: [facility] CareQnlhhoiuow71-21-2380 11:30-0500Diastolic blood zbizdvuv27 mm[Hg]Abbe Evelia DO Work Phone: [facility] CareJuezlkjyrc85-93-1737 11:30-0500Systolic blood dsjcindu235 mm[Hg]Abbe Evelia DO Work Phone: [facility] CareHacfgtrhyc34-68-8539 09:59-0400Body oubusf432.6 cmCorey Evelia DO Work Phone: [facility] CareSrhyiccoum37-91-9911 09:59-0400Body mass index (BMI) [Ratio]27.81 kg/w5Isknz Evelia DO Work Phone: [facility] CareSwlovkoeud55-99-1243 09:59-0400Body kngisy04.48 kgCoreruddy Evelia DO Work Phone: [facility] CareCcohdzvwub48-99-7838 09:59-0400Diastolic blood vybnjssh20 mm[Hg]Abbe Evelia DO Work Phone: [facility] CareBkmhulpxsk85-90-4403 09:59-0400Systolic blood tgamnbxn431 mm[Hg]Abbe Hurdo DO Work Phone: [facility] CarePuoczjgeuu14-03-6595 14:30-0400Diastolic blood xrzvcesy36 mm[Hg]MD Loco Green Work Phone: [phone]06-20-2024 14:30-0400 Heart rate81 /minMD Loco Green Work Phone: [phone]06-20-2024 14:30-0400 Respiratory rate20 /minMD Loco Green Work Phone: [phone]06-20-2024 14:30-0400 SaO2% (BldA) [Mass fraction]95 %MD Loco Green Work Phone: [facility]06-20-2024 14:30-0400 Systolic blood vpeoeroq385 mm[Hg]MD Loco Green Work Phone: [phone]06-20-2024 13:07-0400 Body vuzntcrltla37.4 [degF]MD Loco Green Work Phone: [phone]06-20-2024 12:37-0400 Inhaled oxygen flow rate8 L/minMD Loco Green Work Phone: [facility]06-20-2024 10:21-0400 Body amkbrv719.56 cmMD Loco Sciota Work Phone: [facility]06-20-2024 10:-040 Body mass index (BMI) [Ratio]27.8 kg/m2MD Loco Sciota Work Phone: [facility]06-20-2024 10:040 Body .48 kgMD [facility] Work Phone: [facility] Encounters Encounter DateEncounter TypeCare ProviderFacilityStart: 06-14-2025 End: 39-66-1710Fswtch encounterAndreshirley Helms PIGGYBACK CLERK-LABORER [employer] Work Phone: MetroHealthStart: 12-04-2024 End: 42-05-8324Mzbqnrxzc Result EncounterGeneric External Data ProviderNOMS External Department UnsolicitedStart: 12-04-2024 End: 59-76-3538Kziokgdjm Result EncounterGeneric External Data ProviderNOMS External Department UnsolicitedStart: 11-05-2024 End: 61-35-4271Pouujr OnlyMicmorelia Alvarez NP Work Phone: noms External Department UnsolicitedStart: 11-05-2024 End: 67-92-3993qpozbabbqlIKKYCA L HILLNot AvailableStart: 10-21-2024 End: 75-31-1544bglpzctaygZoyqbr Hill MD Work Phone: [facility] Work Phone: Start: 10-21-2024 End: 71-23-3697Iepghes encounter procedureLoco Green MD Work Phone: [facility] Work Phone: Start: 09-24-2024 End: 20-67-0841Bpfexox encounter Deshawn Green MD Work Phone: [facility] [place] Work Phone: Start: 09-24-2024 End: 10-47-1051moqmlmniquEybwow Hill MD Work Phone: [facility] Work Phone: Start: 06-24-2024 End: 69-26-7900Doizvi flowsheetCorey Evelia DO Work Phone: noms BCP OBStart: 06-24-2024 End: 96-27-8205Xldssz flowsheetCorey Evelia DO Work Phone: [facility] BCP OBStart: 06-24-2024 End: 20-12-0182Byxqqxhpy Result EncounterGeneric External Data ProviderNOMS External Department UnsolicitedStart: 06-24-2024 End: 22-83-8029Kwinqhg encounter procedureCorey Evelia DO Work Phone: [facility] Work Phone: Start: 06-24-2024 End: 86-25-6493Xghwnprc preventive med est patient 40-64yrsCorey Evelia DO Work Phone: [facility]oms BCP OBComment on above:Well woman exam with routine gynecological exam; Breast cancer screening by mammogram; Postmenopausal stateStart: 06-24-2024 End: 16-45-9481mdkohdqykaBDNUF FAZIONot AvailableStart: 06-10-2024 End: 65-29-3014Horuiu flowsheetCorey Evelia DO Work Phone: [facility] BCP OBStart: 06-10-2024 End: 65-00-0971Enjabv flowsheetCorey Evelia DO Work Phone: NOBZ BCP OBStart: 06-10-2024 End: 86-46-2650Qpgkep outpatient visit 15 minutesCorey Veelia DO Work Phone: noms BCP OBComment on above:Vaginal itchingStart: 06-10-2024 End: 07-67-5731dsuqrgmwmeXZTQD FAZIONot AvailableStart: 02-01-2024 End: 06-02-6283Kqlesepoa to same day surgery centerUT Loco Green Work Phone: [facility] CampusStart: 02-01-2024 End: 64-14-0485zjxdtkmtleYC Loco Green Work Phone: [facility] Work Phone: Start: 01-18-2024 End: 37-67-8455Qdxdocm encounter procedureMD Loco Sciota Work Phone: [facility]-Pre[facility] Work Phone: Start: 01-18-2024 End: 02-40-6015nisecimxirYO Loco Sciota Work Phone: [facility] Work Phone: Start: 23-20-6162Rocvxiyuv for preprocedural cardiovascular examinationGregSelect Medical Specialty Hospital [facility] Physician GroupStart: 12-01-2023 End: 59-89-6027Fimqajsqf Result EncounterGeneric External Data ProviderNOMS External Department UnsolicitedStart: 12-01-2023 End: 27-51-0934Qropaqsyy Result EncounterGeneric External Data ProviderNOMS External Department UnsolicitedStart: 28-81-4161Czagfu encounterMetroHealth Start: 00-08-8688digkgsbanvFKRCZOR PROVIDERFacility:METROHealthStart: 09-13-2023 End: 44-16-2417Upozsxe encounter procedureSlava Helms PIGGYBACK CLERK-LABORER [employer] Work Phone: [facility] Plastic SurgeryComment on above:No-show for appointment (Primary Dx)Start: 08-16-2023 End: 19-20-6595Kviyrdyns Result EncounterGeneric External Data ProviderNOMS External Department UnsolicitedStart: 08-16-2023 End: 44-54-8808Kjhmgbmyg Result EncounterGeneric External Data ProviderNOMS External Department UnsolicitedStart: 06-33-0793Heaptkkae for preprocedural laboratory examinationDR NATY [facility] HospitalStart: 07-27-2022 End: 40-50-4908mzmotpzvvsWY MICHAEL NILLFacility:P4Qmmyc: 07-23-2022 End: 11-15-7404ggkxbwecalHA NATY LIULFacility:D6Fzrng: 07-23-2022 End: 70-29-3562Ehtcbugsi for preprocedural laboratory examinationDR NATY ROBERT Facility:Y6Xpmhm: 07-12-2022 End: 73-76-4020usizbgzdqcNetlrrc Kassi NILLFacility: [place]vueStart: 06-15-2022 End: 93-71-5596edqqexqlzzOU ABBE FAZIOFacility:T0Lfdsm: 30-61-0857gkebparjqf Naty NILLFacility: BellevueStart: 11-12-2021 End: 33-24-7925cngfrysebxWI ABBE FAZIOFacility:H1 Procedures DateProcedureProcedure DetailPerforming ClinicianStart: 95-26-2516YN TOMOSYNTHESIS SCREENING BIGeneric External Data ProviderStart: 12-04-2024 MammographyGeneric ProviderStart: 41-27-3738Zjdwiel bacterial quanttative colony count urineMicmorelia Alvarez ENVIRONMENTAL TEST TECHNICIAN Work Phone: Start: 05-45-4334QZHBH CULTURE CLEAN CATCH REFLEX David Alvarez ENVIRONMENTAL TEST TECHNICIAN Work Phone: Start: 89-40-5116Uttcs cultureLoco Green MD Work Phone: Start: 70-64-2733TLE,APTIMA HPV,AGE GDLNCorey Evelia DO Work Phone: Start: 17-28-7597Epjofxzfiaa observation [Identifier] in Cervix by Cyto stainMicmorelia Alvarez ENVIRONMENTAL TEST TECHNICIAN Work Phone: Start: 09-24-9695Kninqxnbt mammoplastyMD Loco Green Work Phone: Start: 92-34-8226IlmhkncikpyDymlx Evelia DO Work Phone: Start: 43-39-9405ZC TOMOSYNTHESIS SCREENING BIGeneric External Data ProviderStart: 01-95-1926JG BREAST RT COMPLETEGeneric External Data ProviderStart: 59-06-4193Eigffpqukgn observation [Identifier] in Cervix by Cyto stainCorey Evelia DO Work Phone: Start: 01-22-9354Bfrq cerv/vag auto thin layer prep mnl screenAmy Michelle ALEXIS Work Phone: Start: 47-10-7993OcejalshbzjZvxye Evelia DO Work Phone: Plan of Treatment DateCare ActivityDetailAuthorStart: 06-82-7020Nlnctfngg for malignant neoplasm of colonNOMS HealthcareStart: 38-96-8898Hkgkirvmm for malignant neoplasm of cervixNOMS HealthcareStart: 21-98-9936Bzycwtcvttg [Mass/volume] in Serum or PlasmaCholesterolMetroHealthStart: 83-11-4216Bybvi panelCholesterolMetroHealth Start: 77-63-8830Xchoczzge for malignant neoplasm of cervixPap SmearNOMS HealthcareStart: 95-02-8126Qszdhbfmy for malignant neoplasm of breastMammogram NOMS HealthcareStart: 11-11-2025 End: 07-71-2029Qghqtfi encounter procedureNOMS SWS IMStart: 07-03-2025 End: 57-31-6698Cqnyddo encounter procedureNOMS BCP OBStart: 46-65-3464RYRFJ-19 Vaccine ( season)COVID-19 Vaccine ( season)[facility] Start: 60-30-0935Jjwnauyrh vaccinationNOMS HealthcareStart: 75-38-7589Fxfpmhxph vaccinationInfluenza Vaccine (#1)NOMS HealthcareComment on above:Postponed from 04/14/2024 (Patient Refused)Start: 08-14-9689Ebdxtlfmw for malignant neoplasm of breastMammogramNOMS HealthcareStart: 11-05-2024 End: 26-84-8469Kfeswpc encounter dtrelzvit09/25/2025 9:15 AM EDT Office Visit [facility] IM [address] [place] [address] Loco Green MD [address] [place] [address] [facility] IMStart: 61-20-3351Wyfopkcg identified in Urine by CultureUrine CultureGreen Cross Hospitaltart: 06-24-2024 End: 93-07-2829YF Breast - bilateral ScreeningBilateral screening mammogram Imaging Routine Breast cancer screening by mammogram Expected: 06/24/2024, Expires: 08/24/2025[facility] Work Phone: comment on above:Expected: 06/24/2024, Expires: 08/24/2025Start: 06-24-2024 End: 00-08-0045Drhvkte encounter ccyecxljy84/11/2024 11:00 AM EST Office Visit [facility] OB [address] [place] [phone] Abbe Altamirano, DO [address] [place] [address] [facility] OBStart: 06-10-2024 End: 87-23-8785Qnodvkr encounter obxlabdin69/28/2024 9:30 AM EDT Office Visit [facility] OB [address] [address] Abbe Altamirano, DO [address] [place] [address] ArrivedNOLIVERMORE VA HOSPITAL OBComment on above:ArrivedStart: 19-19-4928Bbtvvjsos vaccinationInfluenza Vaccine (#1)NOMS HealthcareStart: 62-06-3839RroiwezgpGreen Cross Hospitaltart: 79-93-5006VswvojjuuGreen Cross Hospitaltart: 21-48-6286Drpsgyvae for malignant neoplasm of breast MammographyMetroHealthStart: 64-33-4116WEWGC-19 Vaccine ( season) COVID-19 Vaccine ( season)MetroHealthStart: 23-73-7646Rsliwxnfy vaccinationInfluenza Vaccine (#1)MetroHealthStart: 90-25-1736Rhdboipndxlu vaccinationPneumococcal Vaccine(s) (50+ yrs) (1 of 1 - PCV)MetroHealthStart: 97-44-8136Jmhllwii (RZV) Vaccine (1 of 2)Shingles (RZV) Vaccine (1 of 2) MetroHealthStart: 01-83-8031Vkqddskmgff [Mass/volume] in Serum or Plasma CholesterolMetroHealthStart: 58-81-0282Hmwxdbkae for malignant neoplasm of colon MetroHealthStart: 12-43-0044Mlfkmsxra for malignant neoplasm of cervixPap Smear MetroHealthStart: 85-02-3965Smjuxjosd A (HAV) Vaccine (optional start 19+ years) Hepatitis A (HAV) Vaccine (optional start 19+ years)MetroHealthStart: 1992 Hepatitis B vaccinationHepatitis B (HBV) Vaccine (1 of 3 - 19+ 3-dose series) MetroHealthStart: 21-49-5478Uvacdtvrm C screeningHepatitis C AntibodyMetroHealth Start: 62-98-8903Danwhuh + diphtheria + acellular pertussis vaccine (product) Tdap BoosterMetroHealthStart: 17-17-8412FMG screeningHIV TestMetroHealthStart: 65-85-4252Lzqsmjzec B vaccinationHepatitis B (HBV) Vaccine (1 of 3 - 3-dose series)MetroHealthStart: 75-16-4214Sfycnjely for malignant neoplasm of colon MetroHealthCHLAMYDIA TRACHOMATIS (GENITO/STI)CHLAMYDIA TRACHOMATIS (GENITO/STI) Lab Routine Vaginal itching Ordered: 06/10/2024[facility] HealthcareComment on above: Ordered: 06/10/2024Neisseria gonorrhoeae DNA [Presence] in Unspecified specimen by NICHELLE with probe detectionNeisseria gonorrhea DNA probe, direct Lab Routine Vaginal itching Ordered: 06/10/2024[facility] HealthcareComment on above:Ordered: 06/10/2024atient EducationKnow your [facility] Work Phone: [facility] Work Phone: SURESWAB(R) ADVANCED VAGINITIS PLUS, TMASURESWAB(R) ADVANCED VAGINITIS PLUS, TMA Pathology and Cytology Routine Vaginal itching Ordered: 06/10/2024[facility] Work Phone: comment on above:Ordered: 06/10/2024THIN PREP TIS PAP AND HR HPV DNATHIN PREP TIS PAP AND HR HPV DNA Pathology and Cytology Routine Well woman exam with routine gynecological exam Ordered: 06/24/2024[facility] HealthcareComment on above:Ordered: 06/24/2024[facility] Immunizations Immunization DateImmunizationNotesCare SytkmevsPixwopmi94-33-1329NATMI-60 Ad26.COV2.S (Juan Luis)MD Loco Green Work Phone: [facility]10-08-2018influenza, injectable, quadrivalent, contains preservativeAndreshirley Helms PIGGYBACK CLERK-LABORER [employer] Work Phone: [phone]ekaAnflly91-69-9219exbhbetfm virus vaccine, unspecified formulationAndrea Scooter PIGGYBACK CLERK-LABORER [employer] Work Phone: [facility] Payers DatePayer CategoryPayerPolicy [id number] - BLUE CROSS BLUE CROSS/HMO,PPO,POS [id number] 2023-Present [address] [place] [address] [id number] Cross Blue Shield [id number] 2.16.840.1.944769.3.57[id number] 2.16.840.1.789478.3.579.[id number] 2.16.840.1.407416.3.579.[id number] 2.16.840.1.064730.3.579.[id number] 2.16.840.1.627901.3.579.[id number] 2.16.840.1.604794.3.579.[id number] 2..840.1.204488.3.579.[id number] 2.840.1.342314.3.579.2.[id number] 2.840.1.852154.3.579.2.5[id number] 2.16.840.1.0[id number] 2.840.1.798007.3.579.2.531 [id number] 2.840.1.408326.3.579.2.531 Social History DateTypeDetailFacilityTobacco smoking status NHISTobacco smoking consumption unknownMetroHealthStart: 97-83-2349Yfx Assigned At BirthFemaleMetroHealthStart: 50-57-4347Afouxw identityIdentifies as female gender (finding)[facility]roHealthStart: 02-20-2023 End: 57-58-1259Qkldkk orientationNot on fileNOVT HealthcareStart: 02-20-2023 End: 15-83-2050Qsxraqp smoking status NHISEx-smoker (finding)[facility] End: 51-64-7081Bbqvien of tobacco useCurrent smokerNOVT HealthcareStart: 08-14-1987 End: 82-18-9675Kkccvyi of tobacco useCigarette SmokerNOVT HealthcareStart: 09-07-2023 End: 21-69-7831Pgwbbbxsuz smoked current (pack per day) - Reported0.3NOVT HealthcareStart: 10-04-2023 End: 64-18-3808Ccoqkxn use and exposureSmokeless tobacco non-userNOVT Healthcare Start: 08-10-2023 End: 40-54-6008Igrvjdapa beverage intakeCurrent drinker of alcohol (finding)[facility] HealthcareHow often to you have a drink containing alcohol?NeverNOMS Healthcare Start: 05-85-5969Fbt many standard drinks containing alcohol do you have on a typical day?Patient does not drinkNOVT HealthcareStart: 04-02-8605Quyueti CommentEx light cigarette smoker(1-9 cigarettes/day)[facility] HealthcareStart: 81-67-0253Russynu CommentAlcohol: 1-2 drinks/monthly or less Caffeine: 1-2 cups/dayJORDAN VALLEY [facility] HealthcareStart: 61-94-3817Lgnjmt orientationHeterosexual (finding) [facility] HealthcareStart: 08-03-2023 End: 74-19-4203MrmJvivkw (finding)[facility] HospitalWithin the last year, have you been afraid of your partner or ex-partner?NoMetroHealthDo you belong to any clubs or organizations such as taoism groups, unions, fraternal or athletic groups, or [...] got money to buy more.Never trueMetroHealthStart: 09-07-2023 Yapozdffq06VmrjvZsbhaj Goals DatePatient GoalDesired Activity/State Functional Status SvaxKdonhijmenIygwnaWtkcjbne85-03-8769Ihygrpx Health Questionnaire 2 item (PHQ- 2) [Reported][facility] Healthcare History of Present illness Narrative 06-24-2024 Note Date & XbsgIxpjPrkkpfeq34-75-9467 History of Present illness Narrative* Kathy Perezfadia, RETAIL AGENT - 06/24/2024 11:00 AM EST Reason for [...] Active Ambulatory Problems Diagnosis Date Noted Asthma ([facility]) 08/09/2016 Fibrocystic breast changes 11/28/2018 Gastroesophageal reflux disease 10/18/2018 Generalized anxiety disorder ([facility]) 02/21/2023 Herpes simplex virus (HSV) infection 08/09/2016 Inverse psoriasis ([facility]) 04/29/2019 Mixed incontinence 11/28/2018 Seasonal allergic rhinitis 08/09/2016 Sexual dysfunction 02/21/2023 Resolved Ambulatory Problems Diagnosis Date Noted Chronic constipation 02/27/2020 Dysmenorrhea 11/28/2018 Excessive and frequent menstruation 12/18/2018 Menopause 11/28/2018 Premenstrual tension syndrome 11/28/2018 Past Medical History: Diagnosis Date Bilateral fibrocystic breast changes Depression ([facility]) GERD (gastroesophageal reflux disease) Seasonal allergies STD (female) HISTORY PAST MEDICAL HISTORY SOCIAL HISTORY Past Medical History: Diagnosis Date Asthma ([facility]) Bilateral fibrocystic breast changes Depression ([facility]) Dysmenorrhea GERD (gastroesophageal reflux disease) Mixed incontinence [...] nursing note reviewed. Exam conducted with a slat basket maker present. Vitals: Estimated body mass index is [...] Present illness Narrative 06-10-2024 Note Date & LgizTzqyTloaxcmh46-63-4851 History of Present illness Narrative* Kathy Geller [...] Active Ambulatory Problems Diagnosis Date Noted Asthma ([facility]) 08/09/2016 Fibrocystic breast changes 11/28/2018 Gastroesophageal reflux disease 10/18/2018 Generalized anxiety disorder ([facility]) 02/21/2023 Herpes simplex virus (HSV) infection 08/09/2016 Inverse psoriasis ([facility]) 04/29/2019 Mixed incontinence 11/28/2018 Seasonal allergic rhinitis 08/09/2016 Sexual dysfunction 02/21/2023 Resolved Ambulatory Problems Diagnosis Date Noted Chronic constipation 02/27/2020 Dysmenorrhea 11/28/2018 Excessive and frequent menstruation 12/18/2018 Menopause 11/28/2018 Premenstrual tension syndrome 11/28/2018 Past Medical History: Diagnosis Date Bilateral fibrocystic breast changes Depression ([facility]) GERD (gastroesophageal reflux disease) Seasonal allergies STD (female) HISTORY PAST MEDICAL HISTORY SOCIAL HISTORY Past Medical History: Diagnosis Date Asthma ([facility]) Bilateral fibrocystic breast changes Depression ([facility]) Dysmenorrhea GERD (gastroesophageal reflux disease) Mixed incontinence [...] Grandmother Lore Beaver Hypertension Maternal Grandfather Jero [place] Brain cancer Paternal Grandmother No Known Problems [...] Present illness Narrative 09-13-2023 Note Date & GqxcUcnxUfhdsaes30-54-7553 History of Present illness Narrative* Slava Helms APRN-CNP - 09/13/2023 11:29 AM EST Pt left the waiting room at her scheduled appointment time. She had been inthe waiting room about 4minutes. She called the office [place]. PRINCESS Maier documented in this encounterMetroHealth Clinical Note 07-27-2022 Note Date & MdjlVqamKyjzhtug99-80-4629 NoteOPERATIVE NOTE OPERATION DATE: 07/27/2022 PREOPERATIVE DIAGNOSIS: [...] recovery room in good condition. [facility] Note Date & WdjoMduuJvzlnhzw11-34-7518 NoteChief Complaint consultation for screening colonoscopy HPI [...] virus vaccine, inactivated - Not Given Patient RefusesCleveland Clinic Union HospitalComment on above:Result Comment: Electronically Signed By: TARA GOVEA, Naty Garcia\Date and Time Signed: 07/13/22 13:08 EST Evaluation note Note Date & TypeNoteFacilityEvaluation note* Diagnosis No-show for appointment- Primary documented in this encounter [facility] Evaluation note Note Date & TypeNoteFacilityEvaluation noteNo assessment information available [facility] Work Phone: Evaluation note Note Date & TypeNoteFacilityEvaluation note* Diagnosis Vaginal itching Pruritus of genital organs documented in this encounter [facility] Healthcare Evaluation note Note Date & TypeNoteFacilityEvaluation note* Diagnosis Well woman exam with routine gynecological exam Routine gynecological examination Breast cancer screening by mammogram Postmenopausal state Asymptomatic postmenopausal status (age-related) (natural) documented in this encounter [facility] Discharge instructions Note Date & TypeNoteFacilityHospital [...] the incision. PLEASE NOTIFY OUR OFFICE at [phone] if you: -Develop a fever of 101 [...] rate. FOLLOW UP -Call the office at [phone] for a follow up appointment 1week. * AFTER HOURS PHONE NUMBER [phone] *[facility] Work Phone: Summary Purpose Family History [...] 2024 11:36am Productive cough, shortness of breath [facility] 2024 9:33am Additional Source Comments INFORMATION SOURCE (unrecogn ized section and content) DATE CREATED AUTHOR 08/05/2022 [facility] DATE CREATED AUTHOR AUTHOR'S ORGANIZ ATION 08/12/2022 [facility] DATE CREATED AUTHOR AUTHOR'S ORGANIZ ATION 09/14/2023 [facility] DATE CREATED AUTHOR AUTHOR'S ORGANIZ ATION 09/26/2024 [facility] DATE CREATED AUTHOR AUTHOR'S ORGANIZ ATION 11/06/2024 [facility] EPIC Care Teams (unrecognized [...] MD [address] [place] [address] PCP - [employer]12/12/22 Loco Green MD [address] [place] [address] PCP - GeneralInternal Medicine02/20/23Team MemberRelationshipSpecialtyStart Date End Date Loco Green MD [address] [place] [address] PCP - [employer]12/12/22 Loco Green MD [address] [place] [address] PCP - GeneralInternal Medicine02/20/23Team MemberRelationshipSpecialtyStart Date End Date Loco Green MD [address] [place] [address] PCP - [employer]12/12/22 Loco Green MD [address] [place] [address] PCP - GeneralInternal Medicine02/20/23Team MemberRelationshipSpecialtyStart Date End Date Loco Green MD [address] [place] [address] PCP - [employer]12/12/22 Loco Green MD [address] [place] [phone] PCP - [facility] Medicine02/20/23 Team Status: Inactive Member Role Status [...] [address] [place] [address] PCP - [employer]/07/08 Loco Green MD [address] [place] [phone] PCP - [facility] Centern[facility]02/20/23Team MemberRelationshipSpecialtyStart Date End Date Loco Green MD [address] [place] [address] PCP - [employer] Loco Green MD [address] [place] [address] PCP - GeneralInternal Medicine02/20/23Team MemberRelationshipSpecialtyStart Date End Date Slava Helms, PIGGYBACK CLERK-LABORER [employer] [id number] [place] [address] APNPlastic Surgery10/14/23 Goals (unrecognized section [...] BE BASED ON THE PRIMARY CLINICAL RECORDS. [facility] [employer] [facility]. provides no warranty or guarantee of the accuracy or completeness of information in this document.
== END 2025-07-22 12:40 | disposition home or self-care (01) ==
LOC: MAMMO 12:40
PROVIDERS: PCP Internal Medicine; Visit Provider Obstetrics & Gynecology
DX: N63.20 Unspecified lump in the left breast, unspecified quadrant (principal); Z13.820 Encounter for screening for osteoporosis; Z78.0 Asymptomatic menopausal state; R92.8 Other abnormal and inconclusive findings on diagnostic imaging of breast
CPT/HCPCS: 77065; G0279